=== PATIENT | male | born 2000 | race Caucasian/White ===

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

== ENCOUNTER 2018-01-10 15:47 | Inpatient (IN) ==
[2018-01-10 16:22] LABS: Basophils # 0.1 K/mm3 (0-0.2); Basophils % 0.9 % (0.1-2.0); Eosinophils # 0.2 K/mm3 (0.0-0.4); Eosinophils % 1.3 % (0.1-12.0); Lymphocytes # 4.9 K/mm3 (0.7-4.5); Lymphocytes % 31.2 % (10-50); Mean Corpuscular HGB Conc 31.8 g/dL (31.8-35.4); Mean Corpuscular Hemoglobin 29.8 pg (27.0-31.2); Mean Corpuscular Volume 93.9 fl (80-94); Mean Platelet Volume 9.6 fl (7.4-10.4); Monocytes # 0.6 K/mm3 (0.1-1.0); Neutrophils # 9.8 K/mm3 (1.8-7.8); Neutrophils % 62.6 % (37.0-80.0); Platelet Count 327 K/mm3 (142-424); Red Blood Count 6.07 M/mm3 (4.60-6.20); Red Cell Distribution Width 13.2 % (11.5-17.5); White Blood Count 15.6 K/mm3 (4.5-13.0)
[2018-01-10 16:25] LABS: Alanine Aminotransferase 22 U/L (12-78); Albumin Level 4.4 gm/dL (3.4-5.0); Albumin/Globulin Ratio 1.1 (1.1-1.8); Alkaline Phosphatase 152 U/L (46-116); Anion Gap 34.5 mEq/L (5-15); Aspartate Amino Transferase 12 U/L (15-37); Bilirubin,Total 1.4 mg/dL (0.2-1.0); Blood Urea Nitrogen 16 mg/dL (7-18); Calcium 9.2 mg/dL (8.5-10.1); Carbon Dioxide 11 mmol/L (21.0-32.0); Chloride 95 mmol/L (98-107); Globulin 3.9 gm/dl (1.3-3.2); Phosphorous 5.5 mg/dL (2.4-4.9); Potassium 4.5 mmoL/L (3.5-5.1); Sodium 136 mmol/L (136-145); Total Protein,Serum 8.3 gm/dL (6.4-8.2)
[2018-01-10 16:31] LABS: Hemoglobin 18.3 g/dL (14.1-18.0)
[2018-01-10 16:33] LABS: Glucose 471 mg/dL (74-106)
[2018-01-10 16:34] LABS: Acetone, Serum (Rapid) Small (None Detect)
--- NOTE | 2018-01-10 16:45 | Emergency Department Note ---
ED Disposition Clinical Impression: DKA (diabetic ketoacidoses) Qualifiers: Diabetes mellitus type: type 1 Diabetes mellitus complication detail: without coma Qualified Code(s): E10.10 - Type 1 diabetes mellitus with ketoacidosis without coma Disposition: Still a Patient Condition on Discharge: Serious Referrals: Iam Ibarra MD [Primary Care Provider] - - Critical Care Critical Care Time: Yes Attestation: On 01/10/18, the high probability of a clinically significant, sudden or life threatening deterioration of the following system(s) required my full and direct attention, intervention and personal management. The time I documented below is in addition to time spent performing reported procedures but includes the following listed in this critical care notation. Total Critical Care Time: 40 Vital system(s) involved:: Metabolic Failure My critical care processes included: Assessment & monitoring of V/S, Initial and Re-exams, Data Review/Interpretation, Coordinating Care, Medication Orders and management, Documentation Medical Decision Making - Dez Inquiry Pt receiving controlled substance: No Vital Signs: 01/10/18 16:02 Temperature 98 F Temperature Source Oral Pulse Rate [Left Radial] 115 H Respiratory Rate 24 Blood Pressure [Right Arm] 115/93 H Blood Pressure Mean [Right Arm] 100 Blood Pressure Source [Right Arm] Automatic Cuff Blood Pressure Position [Right Arm] Sitting 02 Sat by Pulse Oximetry 97 Oxygen Delivery Method Room Air - Lab Data Lab Results 01/10/18 15:56: POC Glucose 400 H* 01/10/18 15:59: VBG pH 7.07 L 01/10/18 16:00: WBC 15.6 H, RBC 6.07, Hgb 18.3 H*, Hct 57.0 H, MCV 93.9, MCH 29.8, MCHC 31.8, RDW 13.2, Plt Count 327, MPV 9.6, Neut % (Auto) 62.6, Lymph % (Auto) 31.2, [place] % (Auto) 4.0, Eos % (Auto) 1.3, Baso % (Auto) 0.9, Neut # (Auto) 9.8 H, Lymph # (Auto) 4.9 H, [place] # (Auto) 0.6, Eos # (Auto) 0.2, Baso # (Auto) 0.1 01/10/18 16:00: Sodium 136, Potassium 4.5, Chloride 95 L, Carbon Dioxide 11 L, Anion Gap 34.5 H, BUN 16, Creatinine 1.35 H, Estimated Creat Clear 82, Estimated GFR 68, Est GFR ( Amer) 82, Glucose 471 H*, Calcium 9.2, Phosphorus 5.5 H , Magnesium 2.0, Total Bilirubin 1.4 H, AST 12 L, ALT 22, Alkaline Phosphatase 152 H, Total Protein 8.3 H, Albumin 4.4, Globulin 3.9 H, Albumin/Globulin Ratio 1.1, Acetone Level Small Result diagrams: 01/10/18 16:00 01/10/18 16:00 Orders (Tests/Meds): ED MEDICATIONS Generic Name Dose Route Start Last Admin Trade Name Freq PRN Reason Stop Dose Admin Insulin Human Regular 100 unit 101 mls @ 6.64 mls/hr 01/10/18 17:00 / Sodium Chloride IV 02/09/18 16:59 .[id number] JOE Protocol 0.1 UNITS/KG/HR Discontinued Medications Generic Name Dose Route Start Last Admin Trade Name Freq PRN Reason Stop Dose Admin Ondansetron HCl 4 mg 01/10/18 16:06 01/10/18 16:10 Zofran 4mg/2ml Vial IV 01/10/18 16:07 4 mg ONCE ONE Administration Sodium Chloride 1,000 ml 01/10/18 16:00 01/10/18 16:10 Sod Chlor 0.9% 1000ml Bag IV 01/10/18 16:01 1,000 ml BOLUS ONE Administration ORDERS Category Date Time Status Complete Blood Count Auto Diff Stat Lab 01/10/18 16:00 Results Urinalysis and Microscopic Stat Lab 01/10/18 15:59 Ordered VBG PH Stat Lab 01/10/18 15:59 Ordered - Physician Consults Physician Consulted: Odell Ibarra Time: 17:01 Reason -: Admission Comment/Response: Agrees to admit the patient to the hospital. We discussed the patient's clinical information, including history, exam, laboratory and radiology results and ED course. Per hospital procedure, I will write temporary bridge inpatient orders on the patient. Specific orders requested by the admitting physician: DKA protocol General Adult HPI - General Chief complaint: Nausea/Vomiting/Diarrhea Stated complaint: DKA Time Seen by Provider: 01/10/18 16:30 Mode of Arrival: Ambulatory Limitations: No Limitations Description of Symptoms (Recalled from ER Triage Doc. 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 pt with hx of IDDM pt smells of ketones. - History of Present Illness HPI narrative: The patient is a type I diabetic with recurrent diabetic ketoacidosis. He has an insulin pump. Presents to the emergency room stating that he is in DKA again. He states symptoms just started today. States he felt fine yesterday. He complains of nausea, vomiting, generalized discomfort. States that his blood sugar normally runs from 150-240. He says that his insulin pump seems to be melting today, stating that there is "a blockage in the wire". - Related Data Home Medications Medication Instructions Recorded Confirmed Insulin Lispro [Humalog] 2.5 unit SQ DIRECTED 10/23/17 01/10/18 insulin lispro (U- 100) 100 2.5 unit SQ .hourly ml 12/27/17 01/10/18 unit/mL subcutaneous cartridge Allergies Allergy/AdvReac Type Severity Reaction Status Date / Time No Known Allergies Allergy Verified 12/27/17 10:51 [facility] History I have reviewed the patient's past medical history: Yes Medical History: Reports:: Diabetes Mellitus Type 1 Denies:: Cancer, Diabetes Mellitus Type 2, Internal Pacemaker, MRSA Laterality Cases: Bilateral: Tonsillectomy Other Surgeries: Yes: No Previous Surgery, Other. No: Pacemaker Amputation: No Fractures: Yes (right ankle) - Social History Smoking Status: Current every day smoker Tobacco Type: cigarettes # Packs/Day (cigarettes): 1 #Yrs smoked (if former smoker): 1 Alcohol Intake: never Alcohol Intake Frequency:: a few times a month Substance Use Type: denies use Occupational Status: unemployed Housing: house Household Members: family - Psychiatric History Expresses thoughts of harming self/others: None Suicide Plan Description: No Plan Family Hx:: Cancer, Diabetes, Heart Attack, Hyperlipidemia, Hypertension, Stroke, Tuberculosis ROS Obtained: Yes All systems reviewed & no additional complaints - Constitutional Constitutional: Denies fever(s) - Gastrointestinal Gastrointestingal: Reports: abdominal pain, nausea, vomiting - Musculoskeletal Musculoskeletal: Reports muscle aches Physical Exam - General General appearance: alert Comment: Mildly confused. Ketones on breath. - Head Head exam: atraumatic, normocephalic - Eye Eye exam: Present: PERRL, EOMI - ENT ENT exam: Present: mucous membranes dry - Neck Neck exam: Present: normal inspection, full ROM. Absent: meningismus - Chest Chest inspection: Present: normal inspection, symmetric chest wall rise - Respiratory Respiratory exam: Present: normal lung sounds bilaterally - Cardiovascular Cardiovascular exam: Present: normal rhythm, tachycardia, normal heart sounds - Abdominal Exam Abdominal exam: Present: soft, tenderness. Absent: distention Abdominal tenderness: Present: diffuse - Neurological Exam Neurological exam: Present: alert, CN II-XII intact. Absent: motor sensory deficit - Psychiatric Psychiatric exam: Present: anxious - Skin Skin exam: Present: warm, dry
[2018-01-10 17:11] LABS: Lymphocytes % 31 % (10-50); Monocytes % 5 % (2-9); Neutrophils % 64 % (42-76); Total Cells Counted 100
[2018-01-10 17:12] LABS: RBC Morphology Normal
[2018-01-10 17:28] LABS: Microscopic, Urine URINE MICROSCOPIC (MICROSCOPIC)
[2018-01-10 17:30] LABS: Appearance,Urine CLEAR (Clear); Bilirubin,Urine Negative (Negative); Blood, Urine Negative (Negative); Color,Urine YELLOW (Yellow); Glucose,Urine (UA) 3+ (Negative); Ketones,Urine 3+ (Negative); Leukocyte Esterase,Urine Negative (Negative); PH,Urine 5.5 (5.0-8.5); Protein,Urine TRACE (Negative); Specific Gravity, Urine >= 1.030 (1.005-1.030); Urobilinogen,Urine 0.2 EU/dl (0.2)
[2018-01-10 17:37] LABS: Bacteria,Urine Trace /lpf; Squamous Epithelial Cell,Urine Occasional #/hpf (0-5)
[2018-01-10 21:11] LABS: Anion Gap 27.9 mEq/L (5-15); Potassium 4.9 mmoL/L (3.5-5.1)
[2018-01-10 22:37] LABS: Calcium 7.8 mg/dL (8.5-10.1)
[2018-01-11 01:07] LABS: Anion Gap 24.2 mEq/L (5-15); Calcium 7.8 mg/dL (8.5-10.1); Potassium 4.2 mmoL/L (3.5-5.1)
[2018-01-11 04:53] LABS: Calcium 7.8 mg/dL (8.5-10.1)
--- NOTE | 2018-01-11 08:08 | Pharmacy Consult Notes ---
[facility] Pharmacy VTE Monitoring - Patient Demographics Admission date: 01/10/18 Report Date: 01/11/18 Time: 08:08 Allergies/Adverse Reactions: Patient Allergies No Known Allergies Allergy (Verified 12/27/17 10:51) Height: 1.73 m Weight: 59.988 kg Patient Problems: Current Active Problems DKA (diabetic ketoacidoses) (Acute) - VTE Risk Labs: VTE Related Lab Results Hgb 18.3 g/dL (14.1-18.0) H* 01/10/18 16:00 Hct 57.0 % (42.0-52.0) H 01/10/18 16:00 Plt Count 327 K/mm3 (142-424) 01/10/18 16:00 BUN 8 mg/dL (7-18) 01/11/18 04:30 Creatinine 0.94 mg/dL (0.70-1.30) 01/11/18 04:30 Estimated Creat Clear 105 mL/min (50-200) 01/11/18 04:30 VTE Score: 0 VTE Risk Level: Very Low Risk Clinical Trial Participant: No - Prophylaxis VTE Prophylaxis Ordered?: Yes Types of VTE Prophylaxis: TEDS Knee High
[2018-01-11 08:57] LABS: Anion Gap 23.7 mEq/L (5-15); Calcium 8.1 mg/dL (8.5-10.1); Potassium 3.7 mmoL/L (3.5-5.1)
[2018-01-11 10:24] VITALS: BP 123/73
--- NOTE | 2018-01-11 12:00 | H&P/Discharge Summary ---
General - General Admission date:: 01/10/18 Discharge date: 01/11/18 *Admission Date: 01/10/18 *Chief complaint: dka *History of present illness: 17 yr old male patient is a type I diabetic with recurrent diabetic ket oacidosis. He has an insulin pump. Presented to the emergency room stating that he is in DKA again. pt states he woke up having symptoms and it was to late to do anything. States he felt fine yesterday. He complains of nausea, vomiting, generalized discomfort. States that his blood sugar normally runs from 150-240. Pt states that there is "a blockage in the wire". [facility] History I have reviewed the patient's past medical history: Yes Medical History: Reports:: Diabetes Mellitus Type 1 Denies:: Cancer, Diabetes Mellitus Type 2, Internal Pacemaker, MRSA Laterality Cases: Bilateral: Tonsillectomy Other Surgeries: Yes: No Previous Surgery, Other. No: Pacemaker Amputation: No Fractures: Yes (right ankle) - *Social History Educational Level: Completed High School Smoking Status: Current every day smoker Tobacco Type: cigarettes # Packs/Day (cigarettes): 1 #Yrs smoked (if former smoker): 7 Alcohol Intake: never Alcohol Intake Frequency:: a few times a month Substance Use Type: denies use Occupational Status: unemployed Housing: house Household Members: significant other, family - Psychiatric History Expresses thoughts of harming self/others: None Suicide Plan Description: No Plan *Family Hx:: Cancer, Diabetes, Heart Attack, Hyperlipidemia, Hypertension, Stroke, Tuberculosis Review of Systems - Review of Systems Review of systems:: pertinent systems reviewed and negative unless documented below - Constitutional Reports malaise, Denies body ache(s), Denies fever(s) - Eyes Denies change in vision - ENT Denies change in voice - *Cardiovascular Denies chest pain at rest, Denies chest pain with activity, Denies shortness of breath, Denies foot swelling - *Respiratory Denies shortness of breath, Denies shortness of breath with activity - *Gastrointestinal Reports cramping, Reports nausea, Reports vomiting, Denies change in bowel habits, Denies loose stools - *Genitourinary Denies painful urination - *Musculoskeletal Denies decreased muscle mass - Integumentary/Breasts Denies change in hair, Denies redness - *Neurologic Denies abnormal movements, Denies localized weakness, Denies tingling - Psychiatric Denies anxiety, Denies mood swings - Endocrine Denies flushing - Hematologic/Lymphatic Denies enlarged lymph nodes Exam Vital signs and Labs for Last 24 Hours: Temp Pulse Resp BP Pulse Ox 98.3 F 93 H 20 123/73 97 01/11/18 08:00 01/11/18 10:00 01/11/18 10:00 01/11/18 10:00 01/11/18 10:00 Laboratory Results - last 24 hr 01/10/18 15:56: POC Glucose 400 H* 01/10/18 15:59: VBG pH 7.07 L 01/10/18 16:00: WBC 15.6 H, RBC 6.07, Hgb 18.3 H*, Hct 57.0 H, MCV 93.9, MCH 29.8, MCHC 31.8, RDW 13.2, Plt Count 327, MPV 9.6, Neut % (Auto) 62.6, Lymph % (Auto) 31.2, [place] % (Auto) 4.0, Eos % (Auto) 1.3, Baso % (Auto) 0.9, Neut # (Auto) 9.8 H, Lymph # (Auto) 4.9 H, [place] # (Auto) 0.6, Eos # (Auto) 0.2, Baso # (Auto) 0.1, Total Counted 100, Neutrophils % (Manual) 64, Lymphocytes % (Manual) 31, Monocytes % (Manual) 5, Platelet Estimate Normal, RBC Morphology Normal 01/10/18 16:00: Sodium 136, Potassium 4.5, Chloride 95 L, Carbon Dioxide 11 L, Anion Gap 34.5 H, BUN 16, Creatinine 1.35 H, Estimated Creat Clear 82, Estimated GFR 68, Est GFR ( Amer) 82, Glucose 471 H*, Calcium 9.2, Phosphorus 5.5 H , Magnesium 2.0, Total Bilirubin 1.4 H, AST 12 L, ALT 22, Alkaline Phosphatase 152 H, Total Protein 8.3 H, Albumin 4.4, Globulin 3.9 H, Albumin/Globulin Ratio 1.1, Acetone Level Small 01/10/18 17:20: Urine Color Yellow, Urine Appearance Clear, Urine pH 5.5, Ur Specific [place] >= 1.030, Urine Protein Trace, Urine Glucose (UA) 3+, Urine Ketones 3+, Urine Blood Negative, Urine Nitrate Negative, Urine Bilirubin Negative, Urine Urobilinogen 0.2, Ur Leukocyte Esterase Negative, Urine RBC None, Urine WBC None, Ur Squamous Epith Cells Occasional, Urine Bacteria Trace 01/10/18 17:43: POC Glucose 390 H* 01/10/18 18:27: POC Glucose 381 H* 01/10/18 20:04: POC Glucose 233 H 01/10/18 20:40: Sodium 138, Potassium 4.9, Chloride 105, Carbon Dioxide 10 L, Anion Gap 27.9 H, BUN 12, Creatinine 1.04 D, Estimated Creat Clear 95, Estimated GFR 92, Est GFR ( Amer) 111 D, Glucose 209 H D, Calcium 7.8 L D, Acetone Level Cancelled 01/10/18 21:49: POC Glucose 167 H 01/10/18 22:54: POC Glucose 151 H 01/11/18 00:20: POC Glucose 139 H 01/11/18 00:45: Sodium 135 L, Potassium 4.2, Chloride 103, Carbon Dioxide 12 L, Anion Gap 24.2 H, BUN 9, Creatinine 1.00, Estimated Creat Clear 99, Estimated GFR 96, Est GFR ( Amer) 116, Glucose 141 H D, Calcium 7.8 L 01/11/18 01:32: POC Glucose 147 H 01/11/18 03:36: POC Glucose 138 H 01/11/18 04:30: Acetone Level Small 01/11/18 04:30: Sodium 137, Potassium 4.0, Chloride 104, Carbon Dioxide 14 L, Anion Gap 23.0 H, BUN 8, Creatinine 0.94, Estimated Creat Clear 105, Estimated GFR 103, Est GFR ( Amer) 125, Glucose 136 H, Calcium 7.8 L 01/11/18 04:34: POC Glucose 128 H 01/11/18 06:09: POC Glucose 135 H 01/11/18 07:53: POC Glucose 150 H 01/11/18 08:33: Sodium 135 L, Potassium 3.7, Chloride 102, Carbon Dioxide 13 L, Anion Gap 23.7 H, BUN 7, Creatinine 0.99, Estimated Creat Clear 102, Estimated GFR 97, Est GFR ( Amer) 118, Glucose 188 H D, Calcium 8.1 L 01/11/18 08:33: Acetone Level Small 01/11/18 09:53: POC Glucose 287 H I & O for Last 24 hours: Intake & Output 01/08/18 01/09/18 01/10/18 01/11/18 11:59 11:59 11:59 11:59 Intake Total 2208 / 2208 Output Total 1800 / 1800 Balance 408 / 408 Weight 132 lb 4 oz - *Routine HEENT Exam Head: Present: normocephalic Eye: Present: EOMI, PERRL ENT: Present: mucous membranes moist - *Routine Neck Exam Present: supple. Absent: lymphadenopathy - *Routine Respiratory Exam Present: CTA bilaterally - *Routine Cardiovascular Exam Present: RRR - *Routine Abdominal Exam Present: soft, normoactive bowel sounds. Absent: tenderness - *Routine Extremities Exam Absent: cyanosis, clubbing, edema - *Routine Skin Exam Present: warm. Absent: rash - *Routine Neurological Exam Present: alert, oriented X3 Hospital Course Hospital Course: insulin drip, monitoring of vital signs and labs this am still has acetone pt signed out ama Results Labs on day of discharge: Labs from last 24 hours 01/11/18 01/11/18 01/11/18 09:53 08:33 08:33 WBC RBC Hgb Hct MCV MCH MCHC RDW Plt Count MPV Neut % (Auto) Lymph % (Auto) [place] % (Auto) Eos % (Auto) Baso % (Auto) Neut # (Auto) Lymph # (Auto) [place] # (Auto) Eos # (Auto) Baso # (Auto) Total Counted Neutrophils % (Manual) Lymphocytes % (Manual) Monocytes % (Manual) Platelet Estimate RBC Morphology VBG pH Sodium 135 L Potassium 3.7 Chloride 102 Carbon Dioxide 13 L Anion Gap 23.7 H BUN 7 Creatinine 0.99 Estimated Creat Clear 102 Estimated GFR 97 Est GFR ( Amer) 118 Glucose 188 H D POC Glucose 287 H Calcium 8.1 L Phosphorus Magnesium Total Bilirubin AST ALT Alkaline Phosphatase Total Protein Albumin Globulin Albumin/Globulin Ratio Urine Color Urine Appearance Urine pH Ur Specific [place] Urine Protein Urine Glucose (UA) Urine Ketones Urine Blood Urine Nitrate Urine Bilirubin Urine Urobilinogen Ur Leukocyte Esterase Urine RBC Urine WBC Ur Squamous Epith Cells Urine Bacteria Acetone Level Small 01/11/18 01/11/18 01/11/18 07:53 06:09 04:34 WBC RBC Hgb Hct MCV MCH MCHC RDW Plt Count MPV Neut % (Auto) Lymph % (Auto) [place] % (Auto) Eos % (Auto) Baso % (Auto) Neut # (Auto) Lymph # (Auto) [place] # (Auto) Eos # (Auto) Baso # (Auto) Total Counted Neutrophils % (Manual) Lymphocytes % (Manual) Monocytes % (Manual) Platelet Estimate RBC Morphology VBG pH Sodium Potassium Chloride Carbon Dioxide Anion Gap BUN Creatinine Estimated Creat Clear Estimated GFR Est GFR ( Amer) Glucose POC Glucose 150 H 135 H 128 H Calcium Phosphorus Magnesium Total Bilirubin AST ALT Alkaline Phosphatase Total Protein Albumin Globulin Albumin/Globulin Ratio Urine Color Urine Appearance Urine pH Ur Specific [place] Urine Protein Urine Glucose (UA) Urine Ketones Urine Blood Urine Nitrate Urine Bilirubin Urine Urobilinogen Ur Leukocyte Esterase Urine RBC Urine WBC Ur Squamous Epith Cells Urine Bacteria Acetone Level 01/11/18 01/11/18 01/11/18 04:30 04:30 03:36 WBC RBC Hgb Hct MCV MCH MCHC RDW Plt Count MPV Neut % (Auto) Lymph % (Auto) [place] % (Auto) Eos % (Auto) Baso % (Auto) Neut # (Auto) Lymph # (Auto) [place] # (Auto) Eos # (Auto) Baso # (Auto) Total Counted Neutrophils % (Manual) Lymphocytes % (Manual) Monocytes % (Manual) Platelet Estimate RBC Morphology VBG pH Sodium 137 Potassium 4.0 Chloride 104 Carbon Dioxide 14 L Anion Gap 23.0 H BUN 8 Creatinine 0.94 Estimated Creat Clear 105 Estimated GFR 103 Est GFR ( Amer) 125 Glucose 136 H POC Glucose 138 H Calcium 7.8 L Phosphorus Magnesium Total Bilirubin AST ALT Alkaline Phosphatase Total Protein Albumin Globulin Albumin/Globulin Ratio Urine Color Urine Appearance Urine pH Ur Specific [place] Urine Protein Urine Glucose (UA) Urine Ketones Urine Blood Urine Nitrate Urine Bilirubin Urine Urobilinogen Ur Leukocyte Esterase Urine RBC Urine WBC Ur Squamous Epith Cells Urine Bacteria Acetone Level Small 01/11/18 01/11/18 01/11/18 01:32 00:45 00:20 WBC RBC Hgb Hct MCV MCH MCHC RDW Plt Count MPV Neut % (Auto) Lymph % (Auto) [place] % (Auto) Eos % (Auto) Baso % (Auto) Neut # (Auto) Lymph # (Auto) [place] # (Auto) Eos # (Auto) Baso # (Auto) Total Counted Neutrophils % (Manual) Lymphocytes % (Manual) Monocytes % (Manual) Platelet Estimate RBC Morphology VBG pH Sodium 135 L Potassium 4.2 Chloride 103 Carbon Dioxide 12 L Anion Gap 24.2 H BUN 9 Creatinine 1.00 Estimated Creat Clear 99 Estimated GFR 96 Est GFR ( Amer) 116 Glucose 141 H D POC Glucose 147 H 139 H Calcium 7.8 L Phosphorus Magnesium Total Bilirubin AST ALT Alkaline Phosphatase Total Protein Albumin Globulin Albumin/Globulin Ratio Urine Color Urine Appearance Urine pH Ur Specific [place] Urine Protein Urine Glucose (UA) Urine Ketones Urine Blood Urine Nitrate Urine Bilirubin Urine Urobilinogen Ur Leukocyte Esterase Urine RBC Urine WBC Ur Squamous Epith Cells Urine Bacteria Acetone Level 01/10/18 01/10/18 01/10/18 22:54 21:49 20:40 WBC RBC Hgb Hct MCV MCH MCHC RDW Plt Count MPV Neut % (Auto) Lymph % (Auto) [place] % (Auto) Eos % (Auto) Baso % (Auto) Neut # (Auto) Lymph # (Auto) [place] # (Auto) Eos # (Auto) Baso # (Auto) Total Counted Neutrophils % (Manual) Lymphocytes % (Manual) Monocytes % (Manual) Platelet Estimate RBC Morphology VBG pH Sodium 138 Potassium 4.9 Chloride 105 Carbon Dioxide 10 L Anion Gap 27.9 H BUN 12 Creatinine 1.04 D Estimated Creat Clear 95 Estimated GFR 92 Est GFR ( Amer) 111 D Glucose 209 H D POC Glucose 151 H 167 H Calcium 7.8 L D Phosphorus Magnesium Total Bilirubin AST ALT Alkaline Phosphatase Total Protein Albumin Globulin Albumin/Globulin Ratio Urine Color Urine Appearance Urine pH Ur Specific [place] Urine Protein Urine Glucose (UA) Urine Ketones Urine Blood Urine Nitrate Urine Bilirubin Urine Urobilinogen Ur Leukocyte Esterase Urine RBC Urine WBC Ur Squamous Epith Cells Urine Bacteria Acetone Level Cancelled 01/10/18 01/10/18 01/10/18 20:04 18:27 17:43 WBC RBC Hgb Hct MCV MCH MCHC RDW Plt Count MPV Neut % (Auto) Lymph % (Auto) [place] % (Auto) Eos % (Auto) Baso % (Auto) Neut # (Auto) Lymph # (Auto) [place] # (Auto) Eos # (Auto) Baso # (Auto) Total Counted Neutrophils % (Manual) Lymphocytes % (Manual) Monocytes % (Manual) Platelet Estimate RBC Morphology VBG pH Sodium Potassium Chloride Carbon Dioxide Anion Gap BUN Creatinine Estimated Creat Clear Estimated GFR Est GFR ( Amer) Glucose POC Glucose 233 H 381 H* 390 H* Calcium Phosphorus Magnesium Total Bilirubin AST ALT Alkaline Phosphatase Total Protein Albumin Globulin Albumin/Globulin Ratio Urine Color Urine Appearance Urine pH Ur Specific [place] Urine Protein Urine Glucose (UA) Urine Ketones Urine Blood Urine Nitrate Urine Bilirubin Urine Urobilinogen Ur Leukocyte Esterase Urine RBC Urine WBC Ur Squamous Epith Cells Urine Bacteria Acetone Level 01/10/18 01/10/18 01/10/18 17:20 16:00 16:00 WBC 15.6 H RBC 6.07 Hgb 18.3 H* Hct 57.0 H MCV 93.9 MCH 29.8 MCHC 31.8 RDW 13.2 Plt Count 327 MPV 9.6 Neut % (Auto) 62.6 Lymph % (Auto) 31.2 [place] % (Auto) 4.0 Eos % (Auto) 1.3 Baso % (Auto) 0.9 Neut # (Auto) 9.8 H Lymph # (Auto) 4.9 H [place] # (Auto) 0.6 Eos # (Auto) 0.2 Baso # (Auto) 0.1 Total Counted 100 Neutrophils % (Manual) 64 Lymphocytes % (Manual) 31 Monocytes % (Manual) 5 Platelet Estimate Normal RBC Morphology Normal VBG pH Sodium 136 Potassium 4.5 Chloride 95 L Carbon Dioxide 11 L Anion Gap 34.5 H BUN 16 Creatinine 1.35 H Estimated Creat Clear 82 Estimated GFR 68 Est GFR ( Amer) 82 Glucose 471 H* POC Glucose Calcium 9.2 Phosphorus 5.5 H Magnesium 2.0 Total Bilirubin 1.4 H AST 12 L ALT 22 Alkaline Phosphatase 152 H Total Protein 8.3 H Albumin 4.4 Globulin 3.9 H Albumin/Globulin Ratio 1.1 Urine Color Yellow Urine Appearance Clear Urine pH 5.5 Ur Specific [place] >= 1.030 Urine Protein Trace Urine Glucose (UA) 3+ Urine Ketones 3+ Urine Blood Negative Urine Nitrate Negative Urine Bilirubin Negative Urine Urobilinogen 0.2 Ur Leukocyte Esterase Negative Urine RBC None Urine WBC None Ur Squamous Epith Cells Occasional Urine Bacteria Trace Acetone Level Small 01/10/18 01/10/18 15:59 15:56 WBC RBC Hgb Hct MCV MCH MCHC RDW Plt Count MPV Neut % (Auto) Lymph % (Auto) [place] % (Auto) Eos % (Auto) Baso % (Auto) Neut # (Auto) Lymph # (Auto) [place] # (Auto) Eos # (Auto) Baso # (Auto) Total Counted Neutrophils % (Manual) Lymphocytes % (Manual) Monocytes % (Manual) Platelet Estimate RBC Morphology VBG pH 7.07 L Sodium Potassium Chloride Carbon Dioxide Anion Gap BUN Creatinine Estimated Creat Clear Estimated GFR Est GFR ( Amer) Glucose POC Glucose 400 H* Calcium Phosphorus Magnesium Total Bilirubin AST ALT Alkaline Phosphatase Total Protein Albumin Globulin Albumin/Globulin Ratio Urine Color Urine Appearance Urine pH Ur Specific [place] Urine Protein Urine Glucose (UA) Urine Ketones Urine Blood Urine Nitrate Urine Bilirubin Urine Urobilinogen Ur Leukocyte Esterase Urine RBC Urine WBC Ur Squamous Epith Cells Urine Bacteria Acetone Level - Additional Comments rounded with dr hollingsworth all orders per darrick Discharge Medications - Medications for Discharge Home Medication List at Discharge: No Action insulin lispro (U- 100) 100 unit/mL subcutaneous cartridge 2.5 unit SQ .hourly ml Insulin Lispro [Humalog] 2.5 unit SQ DIRECTED Disposition Disposition: Left Against Medical Advice
== END 2018-01-11 10:21 | disposition left against medical advice (07) ==
LOC: ER 15:47 → 2ND 17:29
PROVIDERS: ADMIT Internal Medicine Adolescent Medicine; ATTEND Emergency Medicine

== ENCOUNTER 2018-02-07 12:20 | Observation (INO) ==
--- NOTE | 2018-02-07 12:29 | Emergency Department Note ---
ED Disposition Clinical Impression: Diabetic ketoacidosis Qualifiers: Diabetes mellitus type: type 1 Diabetes mellitus complication detail: without coma Qualified Code(s): E10.10 - Type 1 diabetes mellitus with ketoacidosis without coma Disposition: Still a Patient Condition on Discharge: Fair Referrals: Iam Ibarra MD [Primary Care Provider] - - Critical Care Critical Care Time: Yes Attestation: On , the high probability of a clinically significant, sudden or life threatening deterioration of the following system(s) required my full and direct attention, intervention and personal management. The time I documented below is in addition to time spent performing reported procedures but includes the following listed in this critical care notation. Total Critical Care Time: 30 Vital system(s) involved:: Metabolic Failure My critical care processes included: Assessment & monitoring of V/S, Initial and Re-exams, Data Review/Interpretation, Coordinating Care, Medication Orders and management, Documentation Medical Decision Making - Dez Inquiry Pt receiving controlled substance: No Vital Signs: 02/07/18 12:30 02/07/18 13:13 Temperature 97.6 F Temperature Source Oral Pulse Rate [Left Radial] 107 H 106 H Respiratory Rate 20 Blood Pressure [Right Arm] 140/92 H 132/74 Blood Pressure Mean [Right Arm] 108 93 Blood Pressure Source [Right Arm] Automatic Cuff Automatic Cuff Blood Pressure Position [Right Arm] Sitting Sitting 02 Sat by Pulse Oximetry 98 98 Oxygen Delivery Method Room Air - Lab Data Lab Results 02/07/18 12:27: POC Glucose 535 H* 02/07/18 12:46: Urine Color Yellow, Urine Appearance Clear, Urine pH 5.5, Ur Specific [place] 1.025, Urine Protein Negative, Urine Glucose (UA) 3+, Urine Ketones 3+, Urine Blood Negative, Urine Nitrate Negative, Urine Bilirubin Negative, Urine Urobilinogen 0.2, Ur Leukocyte Esterase Negative, Urine RBC None, Urine WBC None, Ur Squamous Epith Cells Occasional, Urine Bacteria Trace 02/07/18 12:46: Sodium 132 L, Potassium 4.5, Chloride 91 L, Carbon Dioxide 12 L, Anion Gap 33.5 H, BUN 18, Creatinine 1.12, Estimated Creat Clear 99, Estimated GFR 84, Est GFR ( Amer) 102, Glucose 558 H*, Calcium 9.5, Phosphorus 4.6, Magnesium 2.0, Total Bilirubin 1.4 H, AST 18, ALT 29, Alkaline Phosphatase 149 H , Total Protein 8.4 H, Albumin 4.5, Globulin 3.9 H, Albumin/Globulin Ratio 1.2, Lipase 163, Acetone Level Moderate Result diagrams: 02/07/18 12:46 Orders (Tests/Meds): ED MEDICATIONS Generic Name Dose Route Start Last Admin Trade Name Freq PRN Reason Stop Dose Admin Insulin Human Regular 100 unit 101 mls @ 6.64 mls/hr 02/07/18 13:30 / Sodium Chloride IV 03/09/18 13:29 .[id number] JOE Protocol 0.1 UNITS/KG/HR Sodium Chloride 10 ml 02/07/18 12:37 Saline Flush 10ml Syringe IV 03/09/18 12:36 NEEDED PRN Maintain IV Site Discontinued Medications Generic Name Dose Route Start Last Admin Trade Name Freq PRN Reason Stop Dose Admin Ondansetron HCl 4 mg 02/07/18 12:37 02/07/18 13:00 Zofran 4mg/2ml Vial IV 02/07/18 12:38 4 mg ONCE ONE Administration Sodium Chloride 1,000 ml 02/07/18 12:37 02/07/18 13:00 Sod Chlor 0.9% 1000ml Bag IV 02/07/18 12:38 1,000 ml BOLUS ONE Administration ORDERS Category Date Time Status Urinalysis and Microscopic Stat Lab 02/07/18 12:46 Ordered Venous Blood Gas Routine RT 02/07/18 13:20 Received Venous Blood Gas Stat RT 02/07/18 12:37 Ordered - Physician Consults Physician Consulted: Gen Ibarra Time: 13:40 Reason -: Admission Comment/Response: Agrees to admit the patient to the hospital. We discussed the patient's clinical information, including history, exam, laboratory and radiology results and ED course. Per hospital procedure, I will write temporary bridge inpatient orders on the patient. Specific orders requested by the admitt ing physician: DKA protocol normal saline 200 cc/h after first liter bolus General Adult HPI - General Stated complaint: possible DKA Time Seen by Provider: 02/07/18 12:29 - History of Present Illness HPI narrative: The patient is known to me from previous visits for diabetic ketoacidosis, which she has had recently about every month. States symptoms started a couple of hours ago. He hurts all over he has abdominal pain, one episode of vomiting. Denies fever or diarrhea. Denies URI symptoms. He has an insulin pump. He says that today it gave him a message that said there was a blockage in the line, but he did not change the unit because he says it was too late, symptoms of DKA had already started. His basal rate is 2.5 units/h. He gives himself 1 unit of insulin for every 7 carbs. His last bolus was about 4-5 PM yesterday, the last time he ate. [employer] Dispatcher is Dr. Todd Gonzales. - Related Data Home Medications Medication Instructions Recorded Confirmed Insulin Lispro [Humalog] 2.5 unit SQ DIRECTED 10/23/17 02/07/18 insulin lispro (U- 100) 100 2.5 unit SQ .hourly ml 12/27/17 02/07/18 unit/mL subcutaneous cartridge Allergies Allergy/AdvReac Type Severity Reaction Status Date / Time No Known Allergies Allergy Verified 12/27/17 10:51 [facility] History - Hepatitis A Screen Attestation statement:: This patient has been screened for Hepatitis A risk factors. I have reviewed the patient's past medical history: Yes Medical History: Reports:: Diabetes Mellitus Type 1 Denies:: Cancer, Diabetes Mellitus Type 2, Internal Pacemaker, MRSA Laterality Cases: Bilateral: Tonsillectomy Other Surgeries: Yes: No Previous Surgery, Other. No: Pacemaker Amputation: No Fractures: Yes (right ankle) - Social History Smoking Status: Current every day smoker Tobacco Type: cigarettes # Packs/Day (cigarettes): 1 #Yrs smoked (if former smoker): 7 Alcohol Intake: never Alcohol Intake Frequency:: a few times a month Substance Use Type: denies use Occupational Status: unemployed Housing: house Household Members: significant other, family Family Hx:: Cancer, Diabetes, Heart Attack, Hyperlipidemia, Hypertension, Stroke, Tuberculosis ROS Obtained: Yes All systems reviewed & no additional complaints - Constitutional Constitutional: Reports body ache, Denies fever(s) - Cardiovascular Cardiovascular: Denies chest pain - Respiratory Respiratory: No dyspnea - Gastrointestinal Gastrointestingal: Reports: abdominal pain, nausea, vomiting. Denies: diarrhea Physical Exam - General General appearance: alert Comment: Looks dehydrated with dry lips and mucous membranes. Smells of ketones. - Head Head exam: atraumatic, normocephalic - Eye Eye exam: Present: normal appearance, PERRL, EOMI - ENT ENT exam: Present: mucous membranes dry - Neck Neck exam: Present: normal inspection, full ROM, trachea midline - Chest Chest inspection: Present: normal inspection, symmetric chest wall rise - Respiratory Respiratory exam: Present: normal lung sounds bilaterally, respiratory distress - Cardiovascular Cardiovascular exam: Present: normal rhythm, tachycardia, normal heart sounds - Abdominal Exam Abdominal exam: Present: soft, tenderness. Absent: distention Abdominal tenderness: Present: diffuse, mild - Extremities Exam Extremities exam: Present: normal inspection, full ROM - Neurological Exam Neurological exam: Present: alert, oriented X3. Absent: motor sensory deficit - Psychiatric Psychiatric exam: Present: normal affect - Skin Skin exam: Present: warm, dry
[2018-02-07 12:50] LABS: Microscopic, Urine URINE MICROSCOPIC (MICROSCOPIC)
[2018-02-07 12:54] LABS: Appearance,Urine CLEAR (Clear); Bilirubin,Urine Negative (Negative); Blood, Urine Negative (Negative); Color,Urine YELLOW (Yellow); Glucose,Urine (UA) 3+ (Negative); Ketones,Urine 3+ (Negative); Leukocyte Esterase,Urine Negative (Negative); PH,Urine 5.5 (5.0-8.5); Protein,Urine Negative (Negative); Specific Gravity, Urine 1.025 (1.005-1.030); Urobilinogen,Urine 0.2 EU/dl (0.2)
[2018-02-07 13:10] LABS: Alanine Aminotransferase 29 U/L (12-78); Albumin Level 4.5 gm/dL (3.4-5.0); Albumin/Globulin Ratio 1.2 (1.1-1.8); Alkaline Phosphatase 149 U/L (46-116); Anion Gap 33.5 mEq/L (5-15); Aspartate Amino Transferase 18 U/L (15-37); Bilirubin,Total 1.4 mg/dL (0.2-1.0); Blood Urea Nitrogen 18 mg/dL (7-18); Calcium 9.5 mg/dL (8.5-10.1); Carbon Dioxide 12 mmol/L (21.0-32.0); Chloride 91 mmol/L (98-107); Globulin 3.9 gm/dl (1.3-3.2); Lipase 163 u/L (73-393); Phosphorous 4.6 mg/dL (2.4-4.9); Potassium 4.5 mmoL/L (3.5-5.1); Sodium 132 mmol/L (136-145); Total Protein,Serum 8.4 gm/dL (6.4-8.2)
[2018-02-07 13:16] LABS: Acetone, Serum (Rapid) Moderate (None Detect); Glucose 558 mg/dL (74-106)
[2018-02-07 13:25] LABS: Bacteria,Urine Trace /lpf; Squamous Epithelial Cell,Urine Occasional #/hpf (0-5)
[2018-02-07 13:28] LABS: VBG Base Excess -17.2 mmol/L (-2.4-2.3); VBG Oxygen Saturation 96.1 % (50-70); VBG PCO2 29.3 mmol/L (35-51); VBG PO2 93.9 mmol/L (28-40); VBG Total CO2 11.9 mmol/L (23-27)
[2018-02-07 13:50] LABS: VBG PH 7.19 mmol/L (7.31-7.41)
[2018-02-07 15:51] LABS: Basophils # 0.1 K/mm3 (0-0.2); Basophils % 0.3 % (0.1-2.0); Eosinophils # 0.1 K/mm3 (0.0-0.4); Eosinophils % 0.5 % (0.1-12.0); Hematocrit 53.2 % (42.0-52.0); Hemoglobin 17.3 g/dL (14.1-18.0); Lymphocytes # 1.5 K/mm3 (0.7-4.5); Lymphocytes % 7.6 % (10-50); Mean Corpuscular HGB Conc 32.6 g/dL (31.8-35.4); Mean Corpuscular Hemoglobin 30.1 pg (27.0-31.2); Mean Corpuscular Volume 92.5 fl (80-94); Mean Platelet Volume 9.2 fl (7.4-10.4); Monocytes # 0.6 K/mm3 (0.1-1.0); Monocytes % 2.9 % (1.7-9.3); Neutrophils # 17.2 K/mm3 (1.8-7.8); Neutrophils % 88.7 % (37.0-80.0); Platelet Count 254 K/mm3 (142-424); Red Blood Count 5.75 M/mm3 (4.60-6.20); Red Cell Distribution Width 12.8 % (11.5-17.5); White Blood Count 19.4 K/mm3 (4.5-13.0)
[2018-02-07 15:57] LABS: Anion Gap 29.3 mEq/L (5-15); Blood Urea Nitrogen 18 mg/dL (7-18); Calcium 8.7 mg/dL (8.5-10.1); Carbon Dioxide 14 mmol/L (21.0-32.0); Chloride 99 mmol/L (98-107); Glucose 327 mg/dL (74-106); Potassium 4.3 mmoL/L (3.5-5.1); Sodium 138 mmol/L (136-145)
[2018-02-07 16:14] LABS: Lymphocytes % 10 % (10-50); Neutrophils % 86 % (42-76); RBC Morphology Normal; Total Cells Counted 100
[2018-02-07 16:16] LABS: Acetone, Serum (Rapid) Moderate (None Detect)
--- NOTE | 2018-02-07 17:53 | History & Physical Report ---
*Admission Date: 02/07/18 *Chief complaint: Abdominal pain and hyperglycemia *History of present illness: 17-year-old male with type 1 diabetes since the age of 1 presented to the emergency department with complaint of malaise, stabbing abdominal pain, and hyperglycemia with blood sugars in the 400s upon awakening this morning. Patient uses an insulin pump and his insulin pump indicated that his line was clogged. That was when he awoke this morning and his blood sugar was in the 400s. He presented to the emergency department because of hyperglycemia along with his stabbing abdominal pain. The malaise and abdominal pain are symptoms he associates with DKA. Patient has had 2 prior admissions over the last 60 days with almost identical story. Patient tells me his blood sugars were in the 100s yesterday and it was only this morning that he developed hyperglycemia. This is now his third admission in the last 60 days. On all 3 of these admissions apparently his blood sugars are very good and then he will awaken next morning with hyperglycemia and indication from his insulin pump that his line is clogged. He does not know why this keeps happening. His terrazzo journeyman is Dr. Gonzales in [place]. He has an appointment with his terrazzo journeyman in 1 week [facility] History I have reviewed the patient's past medical history: Yes Medical History: Reports:: Diabetes Mellitus Type 1 Denies:: Cancer, Diabetes Mellitus Type 2, Internal Pacemaker, MRSA Laterality Cases: Bilateral: Tonsillectomy Other Surgeries: Yes: No Previous Surgery, Other. No: Pacemaker Amputation: No Fractures: Yes (right ankle) - *Social History Educational Level: Completed High School Smoking Status: Current every day smoker Tobacco Type: cigarettes # Packs/Day (cigarettes): 1 #Yrs smoked (if former smoker): 7 Alcohol Intake: current Alcohol Intake Frequency:: holidays/special occasions only Substance Use Type: denies use Occupational Status: unemployed Housing: house Household Members: family - Psychiatric History Expresses thoughts of harming self/others: None Suicide Plan Description: No Plan *Family Hx:: Cancer, Diabetes, Heart Attack, Hyperlipidemia, Hypertension, Stroke, Tuberculosis Review of Systems - Constitutional Reports fatigue, Reports lack of energy, Reports malaise, Denies body ache(s), Denies chills, Denies excessive sweating, Denies fever(s) - *Cardiovascular Denies chest pain, Denies chest pain at rest - *Respiratory Denies change in phlegm color, Denies chest congestion - *Gastrointestinal Reports abdominal pain, Denies belching, Denies bloating, Denies change in bowel habits, Denies constipation, Denies cramping, Denies loose stools Meds Home Medications Medication Instructions Recorded Confirmed Type Insulin Lispro [Humalog] 2.5 unit SQ DIRECTED 10/23/17 02/07/18 History insulin lispro (U- 100) 100 2.5 unit SQ .hourly ml 12/27/17 02/07/18 History unit/mL subcutaneous cartridge Allergies Allergy/AdvReac Type Severity Reaction Status Date / Time No Known Allergies Allergy Verified 12/27/17 10:51 Exam Vital signs and Labs for Last 24 Hours: Temp Pulse Resp BP Pulse Ox 98.1 F 105 H 18 153/71 H 100 02/07/18 16:30 02/07/18 16:30 02/07/18 16:30 02/07/18 16:30 02/07/18 16:30 Laboratory Results - last 24 hr 02/07/18 12:27: POC Glucose 535 H* 02/07/18 12:46: Urine Color Yellow, Urine Appearance Clear, Urine pH 5.5, Ur Specific [place] 1.025, Urine Protein Negative, Urine Glucose (UA) 3+, Urine Ketones 3+, Urine Blood Negative, Urine Nitrate Negative, Urine Bilirubin Negative, Urine Urobilinogen 0.2, Ur Leukocyte Esterase Negative, Urine RBC None, Urine WBC None, Ur Squamous Epith Cells Occasional, Urine Bacteria Trace 02/07/18 12:46: Sodium 132 L, Potassium 4.5, Chloride 91 L, Carbon Dioxide 12 L, Anion Gap 33.5 H, BUN 18, Creatinine 1.12, Estimated Creat Clear 99, Estimated GFR 84, Est GFR ( Amer) 102, Glucose 558 H*, Calcium 9.5, Phosphorus 4.6, Magnesium 2.0, Total Bilirubin 1.4 H, AST 18, ALT 29, Alkaline Phosphatase 149 H, Total Protein 8.4 H, Albumin 4.5, Globulin 3.9 H, Albumin/Globulin Ratio 1.2, Lipase 163, Acetone Level Moderate 02/07/18 13:20: VBG pH 7.19 L, VBG pCO2 29.3 L, VBG pO2 93.9 H, VBG HCO3 11.0 L, VBG Total CO2 11.9 L, VBG O2 Saturation 96.1 H, VBG Base Excess -17.2 L 02/07/18 15:32: POC Glucose 299 H 02/07/18 15:45: Sodium 138, Potassium 4.3, Chloride 99, Carbon Dioxide 14 L, Anion Gap 29.3 H, BUN 18, Creatinine 1.13, Estimated Creat Clear 86, Estimated GFR 84, Est GFR ( Amer) 101, Glucose 327 H D, Calcium 8.7, Acetone Level Moderate 02/07/18 15:45: WBC 19.4 H, RBC 5.75, Hgb 17.3, Hct 53.2 H, MCV 92.5, MCH 30.1, MCHC 32.6, RDW 12.8, Plt Count 254, MPV 9.2, Neut % (Auto) 88.7 H, Lymph % (Auto) 7.6 L, Jennings % (Auto) 2.9, Eos % (Auto) 0.5, Baso % (Auto) 0.3, Neut # (Auto) 17.2 H, Lymph # (Auto) 1.5, [place] # (Auto) 0.6, Eos # (Auto) 0.1, Baso # (Auto) 0.1, Total Counted 100, Neutrophils % (Manual) 86 H, Band Neutrophils % 2.0, Lymphocytes % (Manual) 10, Atypical Lymphs % 2.0, Platelet Estimate Normal, RBC Morphology Normal 02/07/18 16:42: POC Glucose 224 H I & O for Last 24 hours: Intake & Output 02/05/18 02/06/18 02/07/18 02/08/18 11:59 11:59 11:59 11:59 Intake Total 1420 / 1420 Balance 1420 / 1420 Weight 128 lb 1 oz Narrative: Patient is awake and alert and appears quite comfortable in bed and in no distress. He is alert and oriented x3. Oropharynx is moist. Neck is without lymphadenopathy. Lungs are clear to auscultation bilaterally. Heart has a regular rate and rhythm. Abdomen is thin, soft, nontender, nondistended with active bowel sounds. Neurologically there are no deficits. Sensory and motor function intact in all extremities. Assessment and Plan (1) DKA (diabetic ketoacidoses) Current visit: Yes Status: Acute Qualifiers: Diabetes mellitus type: type 1 Diabetes mellitus complication detail: without coma Qualified Code(s): E10.10 - Type 1 diabetes mellitus with ketoacidosis without coma Category: Medical Code(s): E13.10 - Other specified diabetes mellitus with ketoacidosis without coma - Assessment and plan all Dx Assessment and Plan for all problems:: Patient is already been treated with a fluid bolus and is on insulin drip. He is feeling better. His last blood sugar was 224. His blood sugars are decreasing nicely. Continue monitoring of electrolytes with serial BMPs. Serum acetone will be repeated in the morning. Maintain insulin drip at this time. Patient lives with his grandfather who is bringing a new set up for his insulin pump.
[2018-02-07 18:58] LABS: Anion Gap 19.2 mEq/L (5-15); Potassium 4.2 mmoL/L (3.5-5.1)
[2018-02-07 23:03] LABS: Calcium 8.2 mg/dL (8.5-10.1)
[2018-02-08 02:57] LABS: Anion Gap 23.6 mEq/L (5-15); Blood Urea Nitrogen 14 mg/dL (7-18); Calcium 7.8 mg/dL (8.5-10.1); Carbon Dioxide 16 mmol/L (21.0-32.0); Chloride 100 mmol/L (98-107); Glucose 266 mg/dL (74-106); Potassium 3.6 mmoL/L (3.5-5.1); Sodium 136 mmol/L (136-145)
[2018-02-08 03:02] LABS: Acetone, Serum (Rapid) Small (None Detect)
[2018-02-08 06:52] LABS: Anion Gap 15.3 mEq/L (5-15); Calcium 8.1 mg/dL (8.5-10.1); Potassium 3.3 mmoL/L (3.5-5.1)
--- NOTE | 2018-02-08 07:39 | Discharge Summary ---
General - General Admission date:: 02/07/18 Discharge date: 02/08/18 HPI HPI: 17-year-old male with type 1 diabetes since the age of 1 presented to the emergency department with complaint of malaise, stabbing abdominal pain, and hyperglycemia with blood sugars in the 400s upon awakening this morning. Patient uses an insulin pump and his insulin pump indicated that his line was clogged. That was when he awoke this morning and his blood sugar was in the 400s. He presented to the emergency department because of hyperglycemia along with his stabbing abdominal pain. The malaise and abdominal pain are symptoms he associates with DKA. Patient has had 2 prior admissions over the last 60 days with almost identical story. Patient tells me his blood sugars were in the 100s yesterday and it was only this morning that he developed hyperglycemia. This is now his third admission in the last 60 days. On all 3 of these admissions apparently his blood sugars are very good and then he will awaken next morning with hyperglycemia and indication from his insulin pump that his line is clogged. He does not know why this keeps happening. His floating operator is Dr. Gonzales in [place]. He has an appointment with his floating operator in 1 week Hospital Course Hospital Course: Patient was admitted and placed on insulin drip. Within 3 hours of admission his sugars were in the 200s. He was continued on normal saline and insulin drip. Overnight he was transitioned to D5 half-normal saline with potassium and his insulin drip. His blood sugar was 117 on the morning of February 08. Patient was allowed to place his new set up for his insulin pump and this was started. Insulin drip was discontinued and glucose was checked 1 hour later and blood sugar remained in the mid 100s Objective Vital signs: Temp Pulse Resp BP Pulse Ox 98.5 F 84 19 90/56 L 99 02/08/18 04:00 02/08/18 06:00 02/08/18 06:00 02/08/18 06:00 02/08/18 06:00 no acute distress - *Routine Respiratory Exam Present: CTA bilaterally - *Routine Cardiovascular Exam Present: RRR, Normal S1, Normal S2 - *Routine Abdominal Exam Present: soft, normoactive bowel sounds. Absent: tenderness, distended Results Labs on day of discharge: Labs from last 24 hours 02/08/18 02/08/18 02/08/18 06:25 06:20 04:16 WBC RBC Hgb Hct MCV MCH MCHC RDW Plt Count MPV Neut % (Auto) Lymph % (Auto) Colbert % (Auto) Eos % (Auto) Baso % (Auto) Neut # (Auto) Lymph # (Auto) Colbert # (Auto) Eos # (Auto) Baso # (Auto) Total Counted Neutrophils % (Manual) Band Neutrophils % Lymphocytes % (Manual) Atypical Lymphs % Platelet Estimate RBC Morphology VBG pH VBG pCO2 VBG pO2 VBG HCO3 VBG Total CO2 VBG O2 Saturation VBG Base Excess Sodium 140 Potassium 3.3 L Chloride 105 Carbon Dioxide 23 D Anion Gap 15.3 H BUN 16 Creatinine 0.78 Estimated Creat Clear 125 Estimated GFR 128 Est GFR ( Amer) 155 Glucose 132 H D POC Glucose 117 H 199 H Calcium 8.1 L Phosphorus Magnesium Total Bilirubin AST ALT Alkaline Phosphatase Total Protein Albumin Globulin Albumin/Globulin Ratio Lipase Urine Color Urine Appearance Urine pH Ur Specific [place] Urine Protein Urine Glucose (UA) Urine Ketones Urine Blood Urine Nitrate Urine Bilirubin Urine Urobilinogen Ur Leukocyte Esterase Urine RBC Urine WBC Ur Squamous Epith Cells Urine Bacteria Acetone Level 02/08/18 02/08/18 02/08/18 02:35 02:13 00:19 WBC RBC Hgb Hct MCV MCH MCHC RDW Plt Count MPV Neut % (Auto) Lymph % (Auto) Colbert % (Auto) Eos % (Auto) Baso % (Auto) Neut # (Auto) Lymph # (Auto) Colbert # (Auto) Eos # (Auto) Baso # (Auto) Total Counted Neutrophils % (Manual) Band Neutrophils % Lymphocytes % (Manual) Atypical Lymphs % Platelet Estimate RBC Morphology VBG pH VBG pCO2 VBG pO2 VBG HCO3 VBG Total CO2 VBG O2 Saturation VBG Base Excess Sodium 136 Potassium 3.6 Chloride 100 Carbon Dioxide 16 L D Anion Gap 23.6 H BUN 14 Creatinine 0.86 Estimated Creat Clear 114 Estimated GFR 115 Est GFR ( Amer) 139 D Glucose 266 H D POC Glucose 262 H 162 H Calcium 7.8 L Phosphorus Magnesium Total Bilirubin AST ALT Alkaline Phosphatase Total Protein Albumin Globulin Albumin/Globulin Ratio Lipase Urine Color Urine Appearance Urine pH Ur Specific [place] Urine Protein Urine Glucose (UA) Urine Ketones Urine Blood Urine Nitrate Urine Bilirubin Urine Urobilinogen Ur Leukocyte Esterase Urine RBC Urine WBC Ur Squamous Epith Cells Urine Bacteria Acetone Level Small 02/07/18 02/07/18 02/07/18 22:45 22:06 20:20 WBC RBC Hgb Hct MCV MCH MCHC RDW Plt Count MPV Neut % (Auto) Lymph % (Auto) Colbert % (Auto) Eos % (Auto) Baso % (Auto) Neut # (Auto) Lymph # (Auto) Colbert # (Auto) Eos # (Auto) Baso # (Auto) Total Counted Neutrophils % (Manual) Band Neutrophils % Lymphocytes % (Manual) Atypical Lymphs % Platelet Estimate RBC Morphology VBG pH VBG pCO2 VBG pO2 VBG HCO3 VBG Total CO2 VBG O2 Saturation VBG Base Excess Sodium 138 Potassium 4.0 Chloride 104 Carbon Dioxide 22 Anion Gap 16.0 H BUN 14 Creatinine 1.03 Estimated Creat Clear 95 Estimated GFR 93 Est GFR ( Amer) 113 Glucose 82 D POC Glucose 96 178 H Calcium 8.2 L Phosphorus Magnesium Total Bilirubin AST ALT Alkaline Phosphatase Total Protein Albumin Globulin Albumin/Globulin Ratio Lipase Urine Color Urine Appearance Urine pH Ur Specific [place] Urine Protein Urine Glucose (UA) Urine Ketones Urine Blood Urine Nitrate Urine Bilirubin Urine Urobilinogen Ur Leukocyte Esterase Urine RBC Urine WBC Ur Squamous Epith Cells Urine Bacteria Acetone Level 02/07/18 02/07/18 02/07/18 18:30 18:29 16:42 WBC RBC Hgb Hct MCV MCH MCHC RDW Plt Count MPV Neut % (Auto) Lymph % (Auto) Colbert % (Auto) Eos % (Auto) Baso % (Auto) Neut # (Auto) Lymph # (Auto) [place]bert # (Auto) Eos # (Auto) Baso # (Auto) Total Counted Neutrophils % (Manual) Band Neutrophils % Lymphocytes % (Manual) Atypical Lymphs % Platelet Estimate RBC Morphology VBG pH VBG pCO2 VBG pO2 VBG HCO3 VBG Total CO2 VBG O2 Saturation VBG Base Excess Sodium 135 L Potassium 4.2 Chloride 100 Carbon Dioxide 20 L D Anion Gap 19.2 H BUN 16 Creatinine 1.19 Estimated Creat Clear 82 Estimated GFR 79 Est GFR ( Amer) 95 Glucose 260 H D POC Glucose 246 H 224 H Calcium 8.0 L Phosphorus Magnesium Total Bilirubin AST ALT Alkaline Phosphatase Total Protein Albumin Globulin Albumin/Globulin Ratio Lipase Urine Color Urine Appearance Urine pH Ur Specific [place] Urine Protein Urine Glucose (UA) Urine Ketones Urine Blood Urine Nitrate Urine Bilirubin Urine Urobilinogen Ur Leukocyte Esterase Urine RBC Urine WBC Ur Squamous Epith Cells Urine Bacteria Acetone Level 02/07/18 02/07/18 02/07/18 15:45 15:45 15:32 WBC 19.4 H RBC 5.75 Hgb 17.3 Hct 53.2 H MCV 92.5 MCH 30.1 MCHC 32.6 RDW 12.8 Plt Count 254 MPV 9.2 Neut % (Auto) 88.7 H Lymph % (Auto) 7.6 L Colbert % (Auto) 2.9 Eos % (Auto) 0.5 Baso % (Auto) 0.3 Neut # (Auto) 17.2 H Lymph # (Auto) 1.5 Colbert # (Auto) 0.6 Eos # (Auto) 0.1 Baso # (Auto) 0.1 Total Counted 100 Neutrophils % (Manual) 86 H Band Neutrophils % 2.0 Lymphocytes % (Manual) 10 Atypical Lymphs % 2.0 Platelet Estimate Normal RBC Morphology Normal VBG pH VBG pCO2 VBG pO2 VBG HCO3 VBG Total CO2 VBG O2 Saturation VBG Base Excess Sodium 138 Potassium 4.3 Chloride 99 Carbon Dioxide 14 L Anion Gap 29.3 H BUN 18 Creatinine 1.13 Estimated Creat Clear 86 Estimated GFR 84 Est GFR ( Amer) 101 Glucose 327 H D POC Glucose 299 H Calcium 8.7 Phosphorus Magnesium Total Bilirubin AST ALT Alkaline Phosphatase Total Protein Albumin Globulin Albumin/Globulin Ratio Lipase Urine Color Urine Appearance Urine pH Ur Specific [place] Urine Protein Urine Glucose (UA) Urine Ketones Urine Blood Urine Nitrate Urine Bilirubin Urine Urobilinogen Ur Leukocyte Esterase Urine RBC Urine WBC Ur Squamous Epith Cells Urine Bacteria Acetone Level Moderate 02/07/18 02/07/18 02/07/18 13:20 12:46 12:46 WBC RBC Hgb Hct MCV MCH MCHC RDW Plt Count MPV Neut % (Auto) Lymph % (Auto) Colbert % (Auto) Eos % (Auto) Baso % (Auto) Neut # (Auto) Lymph # (Auto) Colbert # (Auto) Eos # (Auto) Baso # (Auto) Total Counted Neutrophils % (Manual) Band Neutrophils % Lymphocytes % (Manual) Atypical Lymphs % Platelet Estimate RBC Morphology VBG pH 7.19 L VBG pCO2 29.3 L VBG pO2 93.9 H VBG HCO3 11.0 L VBG Total CO2 11.9 L VBG O2 Saturation 96.1 H VBG Base Excess -17.2 L Sodium 132 L Potassium 4.5 Chloride 91 L Carbon Dioxide 12 L Anion Gap 33.5 H BUN 18 Creatinine 1.12 Estimated Creat Clear 99 Estimated GFR 84 Est GFR ( Amer) 102 Glucose 558 H* POC Glucose Calcium 9.5 Phosphorus 4.6 Magnesium 2.0 Total Bilirubin 1.4 H AST 18 ALT 29 Alkaline Phosphatase 149 H Total Protein 8.4 H Albumin 4.5 Globulin 3.9 H Albumin/Globulin Ratio 1.2 Lipase 163 Urine Color Yellow Urine Appearance Clear Urine pH 5.5 Ur Specific [place] 1.025 Urine Protein Negative Urine Glucose (UA) 3+ Urine Ketones 3+ Urine Blood Negative Urine Nitrate Negative Urine Bilirubin Negative Urine Urobilinogen 0.2 Ur Leukocyte Esterase Negative Urine RBC None Urine WBC None Ur Squamous Epith Cells Occasional Urine Bacteria Trace Acetone Level Moderate 02/07/18 12:27 WBC RBC Hgb Hct MCV MCH MCHC RDW Plt Count MPV Neut % (Auto) Lymph % (Auto) [place]bert % (Auto) Eos % (Auto) Baso % (Auto) Neut # (Auto) Lymph # (Auto) [place]bert # (Auto) Eos # (Auto) Baso # (Auto) Total Counted Neutrophils % (Manual) Band Neutrophils % Lymphocytes % (Manual) Atypical Lymphs % Platelet Estimate RBC Morphology VBG pH VBG pCO2 VBG pO2 VBG HCO3 VBG Total CO2 VBG O2 Saturation VBG Base Excess Sodium Potassium Chloride Carbon Dioxide Anion Gap BUN Creatinine Estimated Creat Clear Estimated GFR Est GFR ( Amer) Glucose POC Glucose 535 H* Calcium Phosphorus Magnesium Total Bilirubin AST ALT Alkaline Phosphatase Total Protein Albumin Globulin Albumin/Globulin Ratio Lipase Urine Color Urine Appearance Urine pH Ur Specific [place] Urine Protein Urine Glucose (UA) Urine Ketones Urine Blood Urine Nitrate Urine Bilirubin Urine Urobilinogen Ur Leukocyte Esterase Urine RBC Urine WBC Ur Squamous Epith Cells Urine Bacteria Acetone Level DS: Diagnosis - Discharge Diagnosis (1) DKA (diabetic ketoacidoses) Status: Acute Discharge Plan - Patient Discharge Instructions ACTIVITY: Continue current activity DIET: continue same diet Additional Instructions: keep apt with floating operator; discuss any issues with insulin pump Patient Instructions: DI for Hyperglycemia -- Adult, DI for Diabetic Ketoacidosis - Follow up Plan Follow up with: Iam Ibarra MD [Primary Care Provider] - Disposition: Home, Self-[facility] Medications: Home Medications Medication Instructions Recorded Confirmed Type RX: Insulin Lispro [Humalog] 2.5 unit SQ DIRECTED 10/23/17 02/07/18 History insulin lispro (U- 100) 100 2.5 unit SQ .hourly ml 12/27/17 02/07/18 History unit/mL subcutaneous cartridge Prescriptions/Medication Reconciliation: Continue insulin lispro (U- 100) 100 unit/mL subcutaneous cartridge 2.5 unit SQ .hourly ml RX: Insulin Lispro [Humalog] 2.5 unit SQ DIRECTED
--- NOTE | 2018-02-08 07:41 | Pharmacy Consult Notes ---
[facility] Pharmacy VTE Monitoring - Patient Demographics Admission date: 02/07/18 Report Date: 02/08/18 Time: 07:40 Allergies/Adverse Reactions: Patient Allergies No Known Allergies Allergy (Verified 12/27/17 10:51) Height: 1.73 m Weight: 58.088 kg Patient Problems: Current Active Problems DKA (diabetic ketoacidoses) (Acute) - VTE Risk Labs: VTE Related Lab Results Hgb 17.3 g/dL (14.1-18.0) 02/07/18 15:45 Hct 53.2 % (42.0-52.0) H 02/07/18 15:45 Plt Count 254 K/mm3 (142-424) 02/07/18 15:45 BUN 16 mg/dL (7-18) 02/08/18 06:20 Creatinine 0.78 mg/dL (0.70-1.30) 02/08/18 06:20 Estimated Creat Clear 125 mL/min (50-200) 02/08/18 06:20 Was VTE Risk Assessment Performed: Yes VTE Score: 1 VTE Risk Level: Very Low Risk - Prophylaxis VTE Prophylaxis Ordered?: Yes Types of VTE Prophylaxis: TEDS Knee High Location of Applied Device: Bilateral Lower Extremeties - VTE Diagnosis Confirmed Treatment or plan recommended: Continue Current Treatment
[2018-02-08 08:24] VITALS: BP 109/62
== END 2018-02-08 08:25 | disposition home or self-care (01) ==
LOC: ER 12:20 → 2ND 13:44 → INTOOBSV 13:44 → 2ND 14:00
PROVIDERS: ADMIT Family Medicine; ATTEND Emergency Medicine
CPT/HCPCS: 36415; 80048; 80053; 81001; 82009; 82803; 82962; 83690; 83735; 84100; 85007; 85025; 96365; 96367; 96375; 99282; G0378; J2405

== ENCOUNTER 2018-06-04 23:04 | Observation (INO) ==
[2018-06-04 23:24] LABS: Microscopic, Urine URINE MICROSCOPIC (MICROSCOPIC)
[2018-06-04 23:27] LABS: Appearance,Urine CLEAR (Clear); Basophils # 0.1 K/mm3 (0-0.2); Basophils % 0.9 % (0.1-2.0); Blood, Urine TRACE-L (Negative); Color,Urine YELLOW (Yellow); Eosinophils # 0.3 K/mm3 (0.0-0.4); Glucose,Urine (UA) 1+ (Negative); Hematocrit 52.7 % (42.0-52.0); Ketones,Urine 3+ (Negative); Leukocyte Esterase,Urine Negative (Negative); Lymphocytes # 4.2 K/mm3 (0.7-4.5); Lymphocytes % 26.8 % (10-50); Mean Corpuscular HGB Conc 35.1 g/dL (31.8-35.4); Mean Corpuscular Hemoglobin 29.7 pg (27.0-31.2); Mean Corpuscular Volume 84.5 fl (80-94); Mean Platelet Volume 9.6 fl (7.4-10.4); Monocytes # 0.7 K/mm3 (0.1-1.0); Monocytes % 4.2 % (1.7-9.3); Neutrophils # 10.3 K/mm3 (1.8-7.8); Neutrophils % 66.2 % (37.0-80.0); PH,Urine 5.5 (5.0-8.5); Platelet Count 301 K/mm3 (142-424); Protein,Urine 2+ (Negative); Red Blood Count 6.24 M/mm3 (4.60-6.20); Red Cell Distribution Width 12.8 % (11.5-17.5); Specific Gravity, Urine >= 1.030 (1.005-1.030); Urobilinogen,Urine 0.2 EU/dl (0.2); White Blood Count 15.6 K/mm3 (4.5-13.0)
[2018-06-04 23:32] LABS: Hemoglobin 18.5 g/dL (14.1-18.0)
[2018-06-04 23:33] LABS: Bilirubin,Urine Negative (Negative)
[2018-06-04 23:35] LABS: Amorphous Sediment,Urine 1+ /lpf; RBC,Urine Occasional #/hpf (0-3)
--- NOTE | 2018-06-04 23:39 | Emergency Department Note ---
ED Disposition Clinical Impression: IDDM (insulin dependent diabetes mellitus), Tobacco use DKA (diabetic ketoacidoses) Qualifiers: Diabetes mellitus type: type 1 Diabetes mellitus complication detail: without coma Qualified Code(s): E10.10 - Type 1 diabetes mellitus with ketoacidosis without coma Disposition: Admitted as Observation Condition on Discharge: Fair Instructions: DI for Acute Abdomen Referrals: Iam Ibarra MD [Primary Care Provider] - - Critical Care Critical Care Time: No Attestation: On 06/04/18, the high probability of a clinically significant, sudden or life threatening deterioration of the following system(s) required my full and direct attention, intervention and personal management. The time I documented below is in addition to time spent performing reported procedures but includes the following listed in this critical care notation. Medical Decision Making - Medical Records Medical records reviewed: Yes: I reviewed the patient's medical records. - Dez Inquiry Pt receiving controlled substance: No Vital Signs: 06/04/18 23:09 06/05/18 00:42 06/05/18 03:10 Temperature 97.9 F Temperature Source Oral Pulse Rate [Right Brachial] 116 H 89 89 Respiratory Rate 18 16 16 Blood Pressure [Right Arm] 153/91 H 138/80 142/80 H Blood Pressure Mean [Right Arm] 111 99 100 Blood Pressure Source [Right Arm] Automatic Cuff Automatic Cuff Blood Pressure Position [Right Arm] Sitting Sitting 02 Sat by Pulse Oximetry 98 99 98 Oxygen Delivery Method Room Air Room Air Room Air - Lab Data Lab results reviewed: Yes: I reviewed the patient's lab results. Lab Results 06/04/18 23:12: POC Glucose 317 H* 06/04/18 23:15: Urine Color Yellow, Urine Appearance Clear, Urine pH 5.5, Ur Specific [place] >= 1.030, Urine Protein 2+, Urine Glucose (UA) 1+, Urine Ketones 3+, Urine Blood Trace-l, Urine Nitrate Negative, Urine Bilirubin Negative, Urine Urobilinogen 0.2, Ur Leukocyte Esterase Negative, Urine RBC Occasional, Urine WBC 5-10, Amorphous Sediment 1+, Hyaline Casts 3-5 06/04/18 23:15: WBC 15.6 H, RBC 6.24 H, Hgb 18.5 H*, Hct 52.7 H, MCV 84.5, MCH 29.7, MCHC 35.1, RDW 12.8, Plt Count 301, MPV 9.6, Neut % (Auto) 66.2, Lymph % (Auto) 26.8, [place] % (Auto) 4.2, Eos % (Auto) 2.0, Baso % (Auto) 0.9, Neut # (Auto) 10.3 H, Lymph # (Auto) 4.2, [place] # (Auto) 0.7, Eos # (Auto) 0.3, Baso # (Auto) 0.1, Total Counted 100, Neutrophils % (Manual) 73, Band Neutrophils % 4.0, Lymphocytes % (Manual) 21, Monocytes % (Manual) 2, Platelet Estimate Normal, RBC Morphology Normal 06/04/18 23:15: Sodium 131 L, Potassium 4.3, Chloride 93 L, Carbon Dioxide 13 L, Anion Gap 29.3 H, BUN 16, Creatinine 1.13, Estimated Creat Clear 110, Estimated GFR 83, Est GFR ( Amer) 100, Glucose 299 H, Calcium 9.6, Total Bilirubin 1.0, AST 15, ALT 24, Alkaline Phosphatase 151 H, Total Protein 9.3 H, Albumin 4.8, Globulin 4.5 H, Albumin/Globulin Ratio 1.1, Amylase 70 06/04/18 23:15: Lipase 60 L 06/04/18 23:15: Acetone Level Small 06/04/18 23:15: Urine Opiates Screen Negative, Urine Methadone Screen Negative, Ur Barbituates Screen Negative, Ur Phencyclidine Scrn Negative, Ur Amphetamines Screen Negative, U Benzodiazepines Scrn Negative, Urine Cocaine Screen Negative, U Marijuana (THC) Screen Positive H 06/05/18 00:54: POC Glucose 210 H 06/05/18 02:54: POC Glucose 211 H 06/05/18 03:46: Acetone Level Small Result diagrams: 06/04/18 23:15 06/04/18 23:15 Orders (Tests/Meds): ED MEDICATIONS Generic Name Dose Route Start Last Admin Trade Name Freq PRN Reason Stop Dose Admin Sodium Chloride 1,000 mls @ 999 mls/hr 06/04/18 23:30 06/04/18 23:23 Sod Chlor 0.9% 1000ml Bag IV 06/05/18 00:30 999 mls/hr .Q1H1M JOE Administration Sodium Chloride 1,000 mls @ 999 mls/hr 06/05/18 00:30 06/05/18 00:38 Sod Chlor 0.9% 1000ml Bag IV 06/05/18 01:30 999 mls/hr .Q1H1M JOE Administration Sodium Chloride 1,000 mls @ 999 mls/hr 06/05/18 02:30 06/05/18 02:22 Sod Chlor 0.9% 1000ml Bag IV 06/05/18 03:30 999 mls/hr .Q1H1M JOE Administration Sodium Chloride 1,000 mls @ 999 mls/hr 06/05/18 03:15 06/05/18 03:10 Sod Chlor 0.9% 1000ml Bag IV 06/05/18 04:15 999 mls/hr .Q1H1M JOE Administration Discontinued Medications Generic Name Dose Route Start Last Admin Trade Name Freq PRN Reason Stop Dose Admin Insulin Human Regular 8 unit 06/04/18 23:39 06/04/18 23:53 Humulin R Insulin 100 Units/Ml 10ml Vial IVP 06/04/18 23:40 8 unit ONCE ONE Administration Ketorolac Tromethamine 30 mg 06/05/18 02:59 06/05/18 03:02 Toradol 30mg/Ml Vial IV 06/05/18 03:00 30 mg ONCE ONE Administration Ondansetron HCl 4 mg 06/05/18 03:04 06/05/18 03:10 Zofran 4mg/2ml Vial IV 06/05/18 03:05 4 mg ONCE ONE Administration ORDERS Category Date Time Status CT abdomen pelvis wo con Stat Cat Scan 06/05/18 00:01 Taken - CT Data CT Scan: Abdomen, Pelvis Time Received: 02:[address] Reviewed: Yes: I have viewed the radiologist's interpretation Preliminary Findings: Normal/NAD Nausea/Vomiting/Diarrhea HPI - General Chief complaint: Abdominal Pain Stated complaint: Pt feels his sugar is high, dry mouth,nausea Time Seen by Provider: 06/04/18 23:37 Mode of Arrival: Ambulatory Source of Information: Patient, Significant Other, Medical Record Limitations: No Limitations Description of Symptoms (Recalled from ER Triage Doc. by RN): Pt states he has abd pain, no other symptoms reported at this time. - History of Present Illness HPI Narrative: pt with crampy abd pain with n/v with hx of iddm and dka MD complaint: nausea, vomiting Onset (ago): day(s) Associated Abdominal Pain: Yes Location of pain: epigastric Severity: moderate Associated symptoms: denies other symptoms - Related Data Home Medications Medication Instructions Recorded Confirmed Insulin Lispro [Humalog] 2.5 unit SQ DIRECTED 10/23/17 03/23/18 insulin lispro (U- 100) 100 2.5 unit SQ .hourly ml 12/27/17 03/23/18 unit/mL subcutaneous cartridge Allergies Allergy/AdvReac Type Severity Reaction Status Date / Time No Known Allergies Allergy Verified 03/23/18 13:58 [facility] History - Hepatitis A Screen Drug use history?: No High risk sexual behaviors?: No History of sexually transmitted infection?: No Currently employed?: No Childcare worker?: No Do you have indoor plumbing?: Yes Do you have electricity?: Yes Attestation statement:: This patient has been screened for Hepatitis A risk factors. I have reviewed the patient's past medical history: Yes Medical History: Reports:: Diabetes Mellitus Type 1 Denies:: Cancer, Diabetes Mellitus Type 2, Internal Pacemaker, MRSA Laterality Cases: Bilateral: Tonsillectomy Other Surgeries: Yes: No Previous Surgery, Other. No: Pacemaker Amputation: No Fractures: Yes (right ankle) - Social History Smoking Status: Current every day smoker Tobacco Type: cigarettes # Packs/Day (cigarettes): 1 #Yrs smoked (if former smoker): 7 Alcohol Intake: never Alcohol Intake Frequency:: holidays/special occasions only Substance Use Type: denies use Occupational Status: unemployed Housing: house Household Members: family - Psychiatric History Expresses thoughts of harming self/others: None Suicide Plan Description: No Plan Family Hx:: Cancer, Diabetes, Heart Attack, Hyperlipidemia, Hypertension, Stroke, Tuberculosis ROS Obtained: Yes All systems reviewed & no additional complaints - Constitutional Constitutional: Denies fever(s) - Eyes Eyes: Denies change in vision - ENT Ears, Nose, Mouth, and Throat: Denies sore throat - Cardiovascular Cardiovascular: Denies chest pain - Respiratory Respiratory: No cough - Gastrointestinal Gastrointestingal: Reports: nausea, vomiting. Denies: abdominal pain - Genitourinary Male Genitourinary: Denies hematuria - Musculoskeletal Musculoskeletal: Denies joint pain - Integumentary/Breasts Skin/Breast: Denies rash - Neurologic Neurologic: Denies seizure-like activity Physical Exam - General General appearance: alert, in no apparent distress - Head Head exam: normocephalic - Eye Eye exam: Present: PERRL, EOMI. Absent: scleral icterus - ENT ENT exam: Present: mucous membranes dry - Neck Neck exam: Present: trachea midline - Respiratory Respiratory exam: Present: normal lung sounds bilaterally. Absent: respiratory distress - Cardiovascular Cardiovascular exam: Present: regular rate - Abdominal Exam Abdominal exam: Present: soft - Extremities Exam Extremities exam: Present: full ROM - Neurological Exam Neurological exam: Present: alert, oriented X3, CN II-XII intact - Psychiatric Psychiatric exam: Present: normal affect - Skin Skin exam: Absent: rash
[2018-06-04 23:42] LABS: Albumin Level 4.8 gm/dL (3.4-5.0); Anion Gap 29.3 mEq/L (5-15); Calcium 9.6 mg/dL (8.5-10.1); Potassium 4.3 mmoL/L (3.5-5.1); Total Protein,Serum 9.3 gm/dL (6.4-8.2)
[2018-06-04 23:43] LABS: Albumin/Globulin Ratio 1.1 (1.1-1.8); Globulin 4.5 gm/dl (1.3-3.2)
[2018-06-04 23:45] LABS: Lymphocytes % 21 % (10-50); Monocytes % 2 % (2-9); Neutrophils % 73 % (42-76); RBC Morphology Normal; Total Cells Counted 100
[2018-06-05 03:21] LABS: Amphetamine/Metha Screen,Urine Negative ng/mL (<1000); Barbiturates Screen,Urine Negative ng/mL (<200); Benzodiazepines Screen,Urine Negative ng/mL (<200); Cannabinoid Screen,Urine Positive ng/mL (<50); Cocaine Screen,Urine Negative ng/mL (<300); Methadone Screen,Urine Negative ng/mL (<300); Opiate Screen,Urine Negative ng/mL (<300); Phencyclidine Screen,Urine Negative ng/mL (<25)
[2018-06-05 06:49] LABS: Basophils # 0.1 K/mm3 (0-0.2); Basophils % 0.5 % (0.1-2.0); Eosinophils # 0.1 K/mm3 (0.0-0.4); Eosinophils % 0.8 % (0.1-12.0); Hematocrit 46.3 % (42.0-52.0); Lymphocytes # 1.8 K/mm3 (0.7-4.5); Lymphocytes % 11.7 % (10-50); Mean Corpuscular Hemoglobin 30.3 pg (27.0-31.2); Mean Corpuscular Volume 86.5 fl (80-94); Mean Platelet Volume 10.2 fl (7.4-10.4); Monocytes # 0.7 K/mm3 (0.1-1.0); Monocytes % 4.3 % (1.7-9.3); Neutrophils # 12.9 K/mm3 (1.8-7.8); Neutrophils % 82.7 % (37.0-80.0); Platelet Count 237 K/mm3 (142-424); Red Blood Count 5.35 M/mm3 (4.60-6.20); Red Cell Distribution Width 12.9 % (11.5-17.5); White Blood Count 15.6 K/mm3 (4.5-13.0)
[2018-06-05 07:03] LABS: Potassium 5.3 mmoL/L (3.5-5.1)
[2018-06-05 07:21] LABS: Anion Gap 27.3 mEq/L (5-15)
[2018-06-05 07:22] LABS: Calcium 7.9 mg/dL (8.5-10.1)
[2018-06-05 07:33] LABS: Hemoglobin 16.1 g/dL (14.1-18.0)
--- NOTE | 2018-06-05 07:50 | Pharmacy Consult Notes ---
[facility] Pharmacy VTE Monitoring - Patient Demographics Admission date: 06/04/18 Report Date: 06/05/18 Time: 07:50 Allergies/Adverse Reactions: Patient Allergies No Known Allergies Allergy (Verified 03/23/18 13:58) Height: 1.68 m Weight: 63.503 kg Patient Problems: Current Active Problems (Updated 06/05/18 @ 04:16 by Iam Ibarra MD) DKA (diabetic ketoacidoses) (Acute) IDDM (insulin dependent diabetes mellitus) (Acute) Tobacco use (Acute) - VTE Risk Labs: VTE Related Lab Results Hgb 16.1 g/dL (14.1-18.0) D 06/05/18 05:35 Hct 46.3 % (42.0-52.0) 06/05/18 05:35 Plt Count 237 K/mm3 (142-424) 06/05/18 05:35 BUN 12 mg/dL (7-18) 06/05/18 05:35 Creatinine 1.02 mg/dL (0.70-1.30) 06/05/18 05:35 Estimated Creat Clear 104 mL/min (50-200) 06/05/18 05:35 VTE Score: 1 VTE Risk Level: Very Low Risk - Prophylaxis VTE Prophylaxis Ordered?: Yes Types of VTE Prophylaxis: TEDS Knee High Location of Applied Device: Bilateral Lower Extremeties - VTE Diagnosis Confirmed Treatment or plan recommended: Continue Current Treatment
--- NOTE | 2018-06-05 12:54 | History & Physical Report ---
*Admission Date: 06/04/18 *Chief complaint: vomiting *History of present illness: this iddm pt presented to the ed -pt with hx of dka and he reports insulin pump out of insulin [facility] History I have reviewed the patient's past medical history: Yes Medical History: Reports:: Diabetes Mellitus Type 1 Denies:: Cancer, Diabetes Mellitus Type 2, Internal Pacemaker, MRSA *Have you ever received a pneumonia vaccine?: No *Have you received a flu vaccine this season?: Yes Laterality Cases: Bilateral: Tonsillectomy Other Surgeries: Yes: No Previous Surgery, Other. No: Pacemaker Amputation: No Fractures: Yes (right ankle) - *Social History Educational Level: Completed High School Smoking Status: Current every day smoker Tobacco Type: cigarettes # Packs/Day (cigarettes): 1 #Yrs smoked (if former smoker): 7 Alcohol Intake: never Alcohol Intake Frequency:: holidays/special occasions only Substance Use Type: marijuana *Occupational Status:: unemployed Housing: house Household Members: family *Travel in the last 8 weeks: None - Psychiatric History Expresses thoughts of harming self/others: None Suicide Plan Description: No Plan Family Hx:: Cancer, Diabetes, Heart Attack, Hyperlipidemia, Hypertension, Stroke, Tuberculosis Review of Systems - Constitutional Reports body ache(s), Reports fatigue - Eyes Denies change in vision - ENT Denies sore throat - *Cardiovascular Denies chest pain at rest - *Respiratory Denies cough - *Gastrointestinal Reports vomiting - *Genitourinary Denies blood in urine - *Musculoskeletal Reports body aches, Denies joint pain - Integumentary/Breasts Denies rash - *Neurologic Denies seizure-like activity - Psychiatric Denies anxiety Meds Home Medications Medication Instructions Recorded Confirmed Type Insulin Lispro [Humalog] 0 unit SQ DIRECTED 10/23/17 06/05/18 History insulin lispro (U- 100) 100 2.5 unit SQ Q1H ml 12/27/17 06/05/18 History unit/mL subcutaneous cartridge Allergies Allergy/AdvReac Type Severity Reaction Status Date / Time No Known Allergies Allergy Verified 03/23/18 13:58 Exam Vital signs and Labs for Last 24 Hours: Temp Pulse Resp BP Pulse Ox 99.4 F 88 17 133/73 100 06/05/18 08:00 06/05/18 11:20 06/05/18 11:20 06/05/18 11:20 06/05/18 11:20 Laboratory Results - last 24 hr 06/04/18 23:12: POC Glucose 317 H* 06/04/18 23:15: Urine Color Yellow, Urine Appearance Clear, Urine pH 5.5, Ur Specific [place] >= 1.030, Urine Protein 2+, Urine Glucose (UA) 1+, Urine Ketones 3+, Urine Blood Trace-l, Urine Nitrate Negative, Urine Bilirubin Negative, Urine Urobilinogen 0.2, Ur Leukocyte Esterase Negative, Urine RBC Occasional, Urine WBC 5-10, Amorphous Sediment 1+, Hyaline Casts 3-5 06/04/18 23:15: WBC 15.6 H, RBC 6.24 H, Hgb 18.5 H*, Hct 52.7 H, MCV 84.5, MCH 29.7, MCHC 35.1, RDW 12.8, Plt Count 301, MPV 9.6, Neut % (Auto) 66.2, Lymph % (Auto) 26.8, [place] % (Auto) 4.2, Eos % (Auto) 2.0, Baso % (Auto) 0.9, Neut # (Auto) 10.3 H, Lymph # (Auto) 4.2, [place] # (Auto) 0.7, Eos # (Auto) 0.3, Baso # (Auto) 0.1, Total Counted 100, Neutrophils % (Manual) 73, Band Neutrophils % 4.0, Lymphocytes % (Manual) 21, Monocytes % (Manual) 2, Platelet Estimate Normal, RBC Morphology Normal 06/04/18 23:15: Sodium 131 L, Potassium 4.3, Chloride 93 L, Carbon Dioxide 13 L, Anion Gap 29.3 H, BUN 16, Creatinine 1.13, Estimated Creat Clear 110, Estimated GFR 83, Est GFR ( Amer) 100, Glucose 299 H, Calcium 9.6, Total Bilirubin 1.0, AST 15, ALT 24, Alkaline Phosphatase 151 H, Total Protein 9.3 H, Albumin 4.8, Globulin 4.5 H, Albumin/Globulin Ratio 1.1, Amylase 70 06/04/18 23:15: Lipase 60 L 06/04/18 23:15: Acetone Level Small 06/04/18 23:15: Urine Opiates Screen Negative, Urine Methadone Screen Negative, Ur Barbituates Screen Negative, Ur Phencyclidine Scrn Negative, Ur Amphetamines Screen Negative, U Benzodiazepines Scrn Negative, Urine Cocaine Screen Negative, U Marijuana (THC) Screen Positive H 06/05/18 00:54: POC Glucose 210 H 06/05/18 02:54: POC Glucose 211 H 06/05/18 03:46: Acetone Level Small 06/05/18 05:35: WBC 15.6 H, RBC 5.35, Hgb 16.1 D, Hct 46.3, MCV 86.5, MCH 30.3, MCHC 35.0, RDW 12.9, Plt Count 237, MPV 10.2, Neut % (Auto) 82.7 H, Lymph % (Auto) 11.7, [place] % (Auto) 4.3, Eos % (Auto) 0.8, Baso % (Auto) 0.5, Neut # (Auto) 12.9 H, Lymph # (Auto) 1.8, [place] # (Auto) 0.7, Eos # (Auto) 0.1, Baso # (Auto) 0.1 06/05/18 05:35: Sodium 133 L, Potassium 5.3 H D, Chloride 102, Carbon Dioxide 9 L* D, Anion Gap 27.3 H, BUN 12, Creatinine 1.02, Estimated Creat Clear 104, Estimated GFR 93, Est GFR ( Amer) 113, Glucose 239 H D, Calcium 7.9 L D, Magnesium 1.6 06/05/18 06:15: POC Glucose 230 H 06/05/18 08:55: POC Glucose 203 H 06/05/18 10:04: POC Glucose 228 H 06/05/18 11:56: POC Glucose 190 H I & O for Last 24 hours: Intake & Output 06/03/18 06/04/18 06/05/18 06/06/18 11:59 11:59 11:59 11:59 Intake Total 120 / 120 Balance 120 / 120 Weight 140 lb - Constitutional no acute distress, thin - *Routine HEENT Exam Head: Present: normocephalic Eye: Present: EOMI, PERRL. Absent: conjunctival icterus ENT: Present: mucous membranes dry - *Routine Neck Exam Present: supple. Absent: JVD - *Routine Respiratory Exam Present: CTA bilaterally - *Routine Cardiovascular Exam Present: RRR. Absent: murmur - *Routine Abdominal Exam Present: soft - *Routine Extremities Exam Absent: calf tenderness - Routine Back/Spine/Pelvis Exam Back/Spine: Absent: CVA tenderness - *Routine Skin Exam Present: intact - *Routine Neurological Exam Present: alert, oriented X3, CN II-XII intact - Routine Psychiatric Exam Present: normal affect Assessment and Plan (1) DKA (diabetic ketoacidoses) Current visit: Yes Status: Acute Qualifiers: Diabetes mellitus type: type 1 Diabetes mellitus complication detail: without coma Qualified Code(s): E10.10 - Type 1 diabetes mellitus with ketoacidosis without coma Category: Medical Code(s): E13.10 - Other specified diabetes mellitus with ketoacidosis without coma (2) IDDM (insulin dependent diabetes mellitus) Current visit: Yes Status: Acute Category: Medical Code(s): E11.9 - Type 2 diabetes mellitus without complications; Z79.4 - FDC (current) use of insulin (3) Tobacco use Current visit: Yes Status: Acute Category: Medical Code(s): Z72.0 - Tobacco use
[2018-06-05 15:11] VITALS: BP 126/63
--- NOTE | 2018-06-05 15:59 | Discharge Summary ---
General - General Admission date:: 06/05/18 Discharge date: 06/05/18 HPI HPI: this iddm pt presented to the ed -pt with hx of dka and he reports insulin pump out of insulin Hospital Course Hospital Course: pt felt better this am but still with inc anion gap and low bicarb - pt with ivf fluids and insulin and slowly improving - but has demanded to leave ama Objective Vital signs: Temp Pulse Resp BP Pulse Ox 99.4 F 99 H 16 126/63 97 06/05/18 08:00 06/05/18 14:40 06/05/18 14:40 06/05/18 14:40 06/05/18 14:40 no acute distress - *Routine HEENT Exam Head: Present: normocephalic Eye: Present: EOMI, PERRL ENT: Present: mucous membranes dry - *Routine Neck Exam Absent: JVD - *Routine Respiratory Exam Absent: respiratory distress - *Routine Cardiovascular Exam Present: RRR - *Routine Abdominal Exam Present: soft - *Routine Extremities Exam Present: full ROM - *Routine Skin Exam Present: intact - *Routine Neurological Exam Present: alert, oriented X3, CN II-XII intact - Routine Psychiatric Exam Present: normal affect Results Labs on day of discharge: Labs from last 24 hours 06/05/18 06/05/18 06/05/18 13:58 13:14 11:56 WBC RBC Hgb Hct MCV MCH MCHC RDW Plt Count MPV Neut % (Auto) Lymph % (Auto) [place] % (Auto) Eos % (Auto) Baso % (Auto) Neut # (Auto) Lymph # (Auto) [place] # (Auto) Eos # (Auto) Baso # (Auto) Total Counted Neutrophils % (Manual) Band Neutrophils % Lymphocytes % (Manual) Monocytes % (Manual) Platelet Estimate RBC Morphology Sodium Potassium Chloride Carbon Dioxide Anion Gap BUN Creatinine Estimated Creat Clear Estimated GFR Est GFR ( Amer) Glucose POC Glucose 260 H 190 H Calcium Magnesium Total Bilirubin AST ALT Alkaline Phosphatase Total Protein Albumin Globulin Albumin/Globulin Ratio Amylase Lipase Urine Color Urine Appearance Urine pH Ur Specific [place] Urine Protein Urine Glucose (UA) Urine Ketones Urine Blood Urine Nitrate Urine Bilirubin Urine Urobilinogen Ur Leukocyte Esterase Urine RBC Urine WBC Amorphous Sediment Hyaline Casts Urine Opiates Screen Urine Methadone Screen Ur Barbituates Screen Ur Phencyclidine Scrn Ur Amphetamines Screen U Benzodiazepines Scrn Urine Cocaine Screen U Marijuana (THC) Screen Acetone Level Detected 06/05/18 06/05/18 06/05/18 10:04 08:55 06:15 WBC RBC Hgb Hct MCV MCH MCHC RDW Plt Count MPV Neut % (Auto) Lymph % (Auto) [place] % (Auto) Eos % (Auto) Baso % (Auto) Neut # (Auto) Lymph # (Auto) [place] # (Auto) Eos # (Auto) Baso # (Auto) Total Counted Neutrophils % (Manual) Band Neutrophils % Lymphocytes % (Manual) Monocytes % (Manual) Platelet Estimate RBC Morphology Sodium Potassium Chloride Carbon Dioxide Anion Gap BUN Creatinine Estimated Creat Clear Estimated GFR Est GFR ( Amer) Glucose POC Glucose 228 H 203 H 230 H Calcium Magnesium Total Bilirubin AST ALT Alkaline Phosphatase Total Protein Albumin Globulin Albumin/Globulin Ratio Amylase Lipase Urine Color Urine Appearance Urine pH Ur Specific [place] Urine Protein Urine Glucose (UA) Urine Ketones Urine Blood Urine Nitrate Urine Bilirubin Urine Urobilinogen Ur Leukocyte Esterase Urine RBC Urine WBC Amorphous Sediment Hyaline Casts Urine Opiates Screen Urine Methadone Screen Ur Barbituates Screen Ur Phencyclidine Scrn Ur Amphetamines Screen U Benzodiazepines Scrn Urine Cocaine Screen U Marijuana (THC) Screen Acetone Level 06/05/18 06/05/18 06/05/18 05:35 05:35 03:46 WBC 15.6 H RBC 5.35 Hgb 16.1 D Hct 46.3 MCV 86.5 MCH 30.3 MCHC 35.0 RDW 12.9 Plt Count 237 MPV 10.2 Neut % (Auto) 82.7 H Lymph % (Auto) 11.7 [place] % (Auto) 4.3 Eos % (Auto) 0.8 Baso % (Auto) 0.5 Neut # (Auto) 12.9 H Lymph # (Auto) 1.8 [place] # (Auto) 0.7 Eos # (Auto) 0.1 Baso # (Auto) 0.1 Total Counted Neutrophils % (Manual) Band Neutrophils % Lymphocytes % (Manual) Monocytes % (Manual) Platelet Estimate RBC Morphology Sodium 133 L Potassium 5.3 H D Chloride 102 Carbon Dioxide 9 L* D Anion Gap 27.3 H BUN 12 Creatinine 1.02 Estimated Creat Clear 104 Estimated GFR 93 Est GFR ( Amer) 113 Glucose 239 H D POC Glucose Calcium 7.9 L D Magnesium 1.6 Total Bilirubin AST ALT Alkaline Phosphatase Total Protein Albumin Globulin Albumin/Globulin Ratio Amylase Lipase Urine Color Urine Appearance Urine pH Ur Specific [place] Urine Protein Urine Glucose (UA) Urine Ketones Urine Blood Urine Nitrate Urine Bilirubin Urine Urobilinogen Ur Leukocyte Esterase Urine RBC Urine WBC Amorphous Sediment Hyaline Casts Urine Opiates Screen Urine Methadone Screen Ur Barbituates Screen Ur Phencyclidine Scrn Ur Amphetamines Screen U Benzodiazepines Scrn Urine Cocaine Screen U Marijuana (THC) Screen Acetone Level Small 06/05/18 06/05/18 06/04/18 02:54 00:54 23:15 WBC RBC Hgb Hct MCV MCH MCHC RDW Plt Count MPV Neut % (Auto) Lymph % (Auto) [place] % (Auto) Eos % (Auto) Baso % (Auto) Neut # (Auto) Lymph # (Auto) [place] # (Auto) Eos # (Auto) Baso # (Auto) Total Counted Neutrophils % (Manual) Band Neutrophils % Lymphocytes % (Manual) Monocytes % (Manual) Platelet Estimate RBC Morphology Sodium Potassium Chloride Carbon Dioxide Anion Gap BUN Creatinine Estimated Creat Clear Estimated GFR Est GFR ( Amer) Glucose POC Glucose 211 H 210 H Calcium Magnesium Total Bilirubin AST ALT Alkaline Phosphatase Total Protein Albumin Globulin Albumin/Globulin Ratio Amylase Lipase Urine Color Urine Appearance Urine pH Ur Specific [place] Urine Protein Urine Glucose (UA) Urine Ketones Urine Blood Urine Nitrate Urine Bilirubin Urine Urobilinogen Ur Leukocyte Esterase Urine RBC Urine WBC Amorphous Sediment Hyaline Casts Urine Opiates Screen Negative Urine Methadone Screen Negative Ur Barbituates Screen Negative Ur Phencyclidine Scrn Negative Ur Amphetamines Screen Negative U Benzodiazepines Scrn Negative Urine Cocaine Screen Negative U Marijuana (THC) Screen Positive H Acetone Level 06/04/18 06/04/18 06/04/18 23:15 23:15 23:15 WBC RBC Hgb Hct MCV MCH MCHC RDW Plt Count MPV Neut % (Auto) Lymph % (Auto) [place] % (Auto) Eos % (Auto) Baso % (Auto) Neut # (Auto) Lymph # (Auto) [place] # (Auto) Eos # (Auto) Baso # (Auto) Total Counted Neutrophils % (Manual) Band Neutrophils % Lymphocytes % (Manual) Monocytes % (Manual) Platelet Estimate RBC Morphology Sodium 131 L Potassium 4.3 Chloride 93 L Carbon Dioxide 13 L Anion Gap 29.3 H BUN 16 Creatinine 1.13 Estimated Creat Clear 110 Estimated GFR 83 Est GFR ( Amer) 100 Glucose 299 H POC Glucose Calcium 9.6 Magnesium Total Bilirubin 1.0 AST 15 ALT 24 Alkaline Phosphatase 151 H Total Protein 9.3 H Albumin 4.8 Globulin 4.5 H Albumin/Globulin Ratio 1.1 Amylase 70 Lipase 60 L Urine Color Urine Appearance Urine pH Ur Specific [place] Urine Protein Urine Glucose (UA) Urine Ketones Urine Blood Urine Nitrate Urine Bilirubin Urine Urobilinogen Ur Leukocyte Esterase Urine RBC Urine WBC Amorphous Sediment Hyaline Casts Urine Opiates Screen Urine Methadone Screen Ur Barbituates Screen Ur Phencyclidine Scrn Ur Amphetamines Screen U Benzodiazepines Scrn Urine Cocaine Screen U Marijuana (THC) Screen Acetone Level Small 06/04/18 06/04/18 06/04/18 23:15 23:15 23:12 WBC 15.6 H RBC 6.24 H Hgb 18.5 H* Hct 52.7 H MCV 84.5 MCH 29.7 MCHC 35.1 RDW 12.8 Plt Count 301 MPV 9.6 Neut % (Auto) 66.2 Lymph % (Auto) 26.8 [place] % (Auto) 4.2 Eos % (Auto) 2.0 Baso % (Auto) 0.9 Neut # (Auto) 10.3 H Lymph # (Auto) 4.2 [place] # (Auto) 0.7 Eos # (Auto) 0.3 Baso # (Auto) 0.1 Total Counted 100 Neutrophils % (Manual) 73 Band Neutrophils % 4.0 Lymphocytes % (Manual) 21 Monocytes % (Manual) 2 Platelet Estimate Normal RBC Morphology Normal Sodium Potassium Chloride Carbon Dioxide Anion Gap BUN Creatinine Estimated Creat Clear Estimated GFR Est GFR ( Amer) Glucose POC Glucose 317 H* Calcium Magnesium Total Bilirubin AST ALT Alkaline Phosphatase Total Protein Albumin Globulin Albumin/Globulin Ratio Amylase Lipase Urine Color Yellow Urine Appearance Clear Urine pH 5.5 Ur Specific [place] >= 1.030 Urine Protein 2+ Urine Glucose (UA) 1+ Urine Ketones 3+ Urine Blood Trace-l Urine Nitrate Negative Urine Bilirubin Negative Urine Urobilinogen 0.2 Ur Leukocyte Esterase Negative Urine RBC Occasional Urine WBC 5-10 Amorphous Sediment 1+ Hyaline Casts 3-5 Urine Opiates Screen Urine Methadone Screen Ur Barbituates Screen Ur Phencyclidine Scrn Ur Amphetamines Screen U Benzodiazepines Scrn Urine Cocaine Screen U Marijuana (THC) Screen Acetone Level DS: Diagnosis - Discharge Diagnosis (1) DKA (diabetic ketoacidoses) Status: Acute (2) IDDM (insulin dependent diabetes mellitus) Status: Acute (3) Tobacco use Status: Acute Discharge Plan - Patient Discharge Instructions ACTIVITY: Continue current activity DIET: continue same diet - Follow up Plan Disposition: Left Against Medical Advice Home Medications: Home Medications Medication Instructions Recorded Confirmed Type Insulin Lispro [Humalog] 0 unit SQ DIRECTED 10/23/17 06/05/18 History insulin lispro (U- 100) 100 2.5 unit SQ Q1H ml 12/27/17 06/05/18 History unit/mL subcutaneous cartridge Prescriptions/Medication Reconciliation: Continued insulin lispro (U- 100) 100 unit/mL subcutaneous cartridge 2.5 unit SQ Q1H ml Insulin Lispro [Humalog] 0 unit SQ DIRECTED
== END 2018-06-05 16:16 | disposition left against medical advice (07) ==
LOC: 2ND 23:04 → ER 23:04 → 2ND 06-05 05:21 → ICU 06-05 11:06
PROVIDERS: ADMIT Emergency Medicine; ATTEND Emergency Medicine
CPT/HCPCS: 36415; 74176; 80048; 80053; 80305; 81001; 82009; 82150; 82962; 83690; 83735; 85007; 85025; 96365; 96366; 96375; 99284; G0378; J2405

== ENCOUNTER 2018-06-06 00:37 | Observation (INO) ==
[2018-06-06 01:18] LABS: Microscopic, Urine URINE MICROSCOPIC (MICROSCOPIC)
[2018-06-06 01:19] LABS: Basophils # 0.1 K/mm3 (0-0.2); Basophils % 0.6 % (0.1-2.0); Eosinophils # 0.2 K/mm3 (0.0-0.4); Eosinophils % 2.1 % (0.1-12.0); Hematocrit 48.3 % (42.0-52.0); Hemoglobin 16.7 g/dL (14.1-18.0); Lymphocytes # 2.7 K/mm3 (0.7-4.5); Lymphocytes % 23.7 % (10-50); Mean Corpuscular HGB Conc 34.7 g/dL (31.8-35.4); Mean Corpuscular Hemoglobin 29.6 pg (27.0-31.2); Mean Corpuscular Volume 85.3 fl (80-94); Mean Platelet Volume 9.4 fl (7.4-10.4); Monocytes # 0.4 K/mm3 (0.1-1.0); Monocytes % 3.5 % (1.7-9.3); Neutrophils % 70.1 % (37.0-80.0); Platelet Count 246 K/mm3 (142-424); Red Blood Count 5.66 M/mm3 (4.60-6.20); Red Cell Distribution Width 13.2 % (11.5-17.5); White Blood Count 11.3 K/mm3 (4.5-13.0)
[2018-06-06 01:27] LABS: Appearance,Urine CLEAR (Clear); Bilirubin,Urine Negative (Negative); Blood, Urine Negative (Negative); Color,Urine YELLOW (Yellow); Glucose,Urine (UA) 2+ (Negative); Ketones,Urine 3+ (Negative); Leukocyte Esterase,Urine Negative (Negative); PH,Urine 5.5 (5.0-8.5); Protein,Urine TRACE (Negative); Specific Gravity, Urine >= 1.030 (1.005-1.030); Urobilinogen,Urine 0.2 EU/dl (0.2)
[2018-06-06 01:31] LABS: Albumin Level 4.3 gm/dL (3.4-5.0); Albumin/Globulin Ratio 1.1 (1.1-1.8); Bilirubin,Total 0.7 mg/dL (0.2-1.0); C-Reactive Protein 0.4 mg/L (0.0-0.9); Globulin 3.9 gm/dl (1.3-3.2); Total Protein,Serum 8.2 gm/dL (6.4-8.2)
[2018-06-06 01:34] LABS: Amphetamine/Metha Screen,Urine Negative ng/mL (<1000); Barbiturates Screen,Urine Negative ng/mL (<200); Benzodiazepines Screen,Urine Negative ng/mL (<200); Cannabinoid Screen,Urine Positive ng/mL (<50); Cocaine Screen,Urine Negative ng/mL (<300); Methadone Screen,Urine Negative ng/mL (<300); Opiate Screen,Urine Negative ng/mL (<300); Phencyclidine Screen,Urine Negative ng/mL (<25)
[2018-06-06 01:37] LABS: Bacteria,Urine 1+ /lpf; Mucus,Urine Trace /lpf
[2018-06-06 01:43] LABS: Calcium 8.8 mg/dL (8.5-10.1)
--- NOTE | 2018-06-06 01:56 | Emergency Department Note ---
ED Disposition Clinical Impression: IDDM (insulin dependent diabetes mellitus), Tobacco use DKA (diabetic ketoacidoses) Qualifiers: Diabetes mellitus type: type 1 Diabetes mellitus complication detail: without coma Qualified Code(s): E10.10 - Type 1 diabetes mellitus with ketoacidosis without coma Disposition: Admitted as Observation Condition on Discharge: Serious Instructions: DI for Acute Abdomen Referrals: Iam Ibarra MD [Primary Care Provider] - - Critical Care Critical Care Time: No Attestation: On 06/06/18, the high probability of a clinically significant, sudden or life threatening deterioration of the following system(s) required my full and direct attention, intervention and personal management. The time I documented below is in addition to time spent performing reported procedures but includes the following listed in this critical care notation. Medical Decision Making - Medical Records Medical records reviewed: Yes: I reviewed the patient's medical records. - Dez Inquiry Pt receiving controlled substance: No Vital Signs: 06/06/18 00:45 Temperature 98.2 F Temperature Source Oral Pulse Rate [Right] 111 H Respiratory Rate 18 Blood Pressure [Right Arm] 156/87 H Blood Pressure Mean [Right Arm] 110 Blood Pressure Source [Right Arm] Automatic Cuff Blood Pressure Position [Right Arm] Sitting 02 Sat by Pulse Oximetry 99 Oxygen Delivery Method Room Air - Lab Data Lab results reviewed: Yes: I reviewed the patient's lab results. Lab Results 06/06/18 01:00: Urine Color Yellow, Urine Appearance Clear, Urine pH 5.5, Ur Specific [place] >= 1.030, Urine Protein Trace, Urine Glucose (UA) 2+, Urine Ketones 3+, Urine Blood Negative, Urine Nitrate Negative, Urine Bilirubin Negative, Urine Urobilinogen 0.2, Ur Leukocyte Esterase Negative, Urine WBC 3-5, Urine Bacteria 1+, Urine Mucus Trace 06/06/18 01:00: WBC 11.3 D, RBC 5.66, Hgb 16.7, Hct 48.3, MCV 85.3, MCH 29.6, MCHC 34.7, RDW 13.2, Plt Count 246, MPV 9.4, Neut % (Auto) 70.1, Lymph % (Auto) 23.7, [place] % (Auto) 3.5, Eos % (Auto) 2.1, Baso % (Auto) 0.6, Neut # (Auto) 8.0 H, Lymph # (Auto) 2.7, [place] # (Auto) 0.4, Eos # (Auto) 0.2, Baso # (Auto) 0.1 06/06/18 01:00: Sodium 134 L, Potassium 4.0 D, Chloride 98, Carbon Dioxide 11 L D, Anion Gap 29.0 H, BUN 14, Creatinine 1.03, Estimated Creat Clear 117, Es timated GFR 92, Est GFR ( Amer) 111, Glucose 336 H D, Calcium 8.8 D, Total Bilirubin 0.7, AST 10 L D, ALT 20, Alkaline Phosphatase 128 H, C-Reactive Protein 0.4, Total Protein 8.2, Albumin 4.3 D, Globulin 3.9 H, Albumin/Globulin Ratio 1.1, Amylase 108, Lipase 105 06/06/18 01:00: Lactate 1.0 06/06/18 01:00: Urine Opiates Screen Negative, Urine Methadone Screen Negative, Ur Barbituates Screen Negative, Ur Phencyclidine Scrn Negative, Ur Amphetamines Screen Negative, U Benzodiazepines Scrn Negative, Urine Cocaine Screen Negative, U Marijuana (THC) Screen Positive H 06/06/18 01:00: Acetone Level Moderate Result diagrams: 06/06/18 01:00 06/06/18 01:00 Orders (Tests/Meds): ED MEDICATIONS Generic Name Dose Route Start Last Admin Trade Name Freq PRN Reason Stop Dose Admin Sodium Chloride 1,000 mls @ 999 mls/hr 06/06/18 01:15 06/06/18 01:13 Sod Chlor 0.9% 1000ml Bag IV 06/06/18 02:15 999 mls/hr .Q1H1M JOE Administration Insulin Human Regular 100 unit 101 mls @ 4.04 mls/hr 06/06/18 02:00 / Sodium Chloride IV 07/06/18 01:59 .Q25H JOE Protocol 4 UNIT/HR Discontinued Medications Generic Name Dose Route Start Last Admin Trade Name Freq PRN Reason Stop Dose Admin Famotidine 20 mg 06/06/18 01:12 06/06/18 01:13 Pepcid 20mg/2ml Vial IV 06/06/18 01:13 20 mg ONCE ONE Administration Insulin Human Regular 5 unit 06/06/18 01:49 Humulin R Insulin 100 Units/Ml 10ml Vial IVP 06/06/18 01:50 ONCE ONE Ketorolac Tromethamine 30 mg 06/06/18 01:02 06/06/18 01:12 Toradol 30mg/Ml Vial IV 06/06/18 01:03 30 mg ONCE ONE Administration Metoclopramide HCl 10 mg 06/06/18 01:12 06/06/18 01:13 Reglan 10mg/2ml Vial IVP 06/06/18 01:13 10 mg ONCE ONE Administration Ondansetron HCl 4 mg 06/06/18 01:02 06/06/18 01:13 Zofran 4mg/2ml Vial IV 06/06/18 01:03 4 mg ONCE ONE Administration ORDERS Category Date Time Status Complete Blood Count Auto Diff Stat Lab 06/06/18 01:00 Results Erythrocyte Sedimentation Rate Stat Lab 06/06/18 01:00 Results Nausea/Vomiting/Diarrhea HPI - General Chief complaint: Abdominal Pain Stated complaint: Abdominal Pain Time Seen by Provider: 06/06/18 01:00 Mode of Arrival: Ambulatory Source of Information: Patient, Significant Other, Medical Record Limitations: No Limitations Description of Symptoms (Recalled from ER Triage Doc. by RN): Pt states he signed out AMA this AM and started to have upper ABD pain at 1700 tonight and wanted to get checked out - History of Present Illness HPI Narrative: pt with known iddm and left earlier ama and returns with vomiting and no diarrhea - insulin pump has been working MD complaint: nausea, vomiting, abdominal pain Onset (ago): day(s) Associated Abdominal Pain: Yes Location of pain: diffuse Severity: moderate Associated symptoms: denies other symptoms - Related Data Home Medications Medication Instructions Recorded Confirmed Insulin Lispro [Humalog] 0 unit SQ DIRECTED 10/23/17 06/05/18 insulin lispro (U- 100) 100 2.5 unit SQ Q1H ml 12/27/17 06/05/18 unit/mL subcutaneous cartridge Allergies Allergy/AdvReac Type Severity Reaction Status Date / Time No Known Allergies Allergy Verified 03/23/18 13:58 [facility] History - Hepatitis A Screen Drug use history?: No High risk sexual behaviors?: No History of sexually transmitted infection?: No Currently employed?: No Childcare worker?: No Do you have indoor plumbing?: Yes Do you have electricity?: Yes Attestation statement:: This patient has been screened for Hepatitis A risk factors. I have reviewed the patient's past medical history: Yes Medical History: Reports:: Diabetes Mellitus Type 1 Denies:: Cancer, Diabetes Mellitus Type 2, Internal Pacemaker, MRSA Laterality Cases: Bilateral: Tonsillectomy Other Surgeries: Yes: No Previous Surgery, Other. No: Pacemaker Amputation: No Fractures: Yes (right ankle) - Social History Smoking Status: Current every day smoker Tobacco Type: cigarettes # Packs/Day (cigarettes): 2 #Yrs smoked (if former smoker): 7 Alcohol Intake: never Alcohol Intake Frequency:: holidays/special occasions only Substance Use Type: marijuana Occupational Status: unemployed Housing: house Household Members: family - Psychiatric History Expresses thoughts of harming self/others: None Suicide Plan Description: No Plan Family Hx:: Cancer, Diabetes, Heart Attack, Hyperlipidemia, Hypertension, Stroke, Tuberculosis ROS Obtained: Yes All systems reviewed & no additional complaints - Constitutional Constitutional: Denies fever(s) - Eyes Eyes: Denies change in vision - ENT Ears, Nose, Mouth, and Throat: Denies sore throat - Cardiovascular Cardiovascular: Denies chest pain - Respiratory Respiratory: No cough - Gastrointestinal Gastrointestingal: Reports: as per HPI, abdominal pain, nausea, vomiting. Denies: diarrhea - Genitourinary Male Genitourinary: Denies hematuria - Musculoskeletal Musculoskeletal: Denies joint pain, Denies joint swelling - Integumentary/Breasts Skin/Breast: Denies rash - Neurologic Neurologic: Denies seizure-like activity Physical Exam - General General appearance: alert - Head Head exam: normocephalic - Eye Eye exam: Present: PERRL, EOMI. Absent: scleral icterus - ENT ENT exam: Present: mucous membranes dry - Neck Neck exam: Present: trachea midline - Respiratory Respiratory exam: Present: normal lung sounds bilaterally. Absent: respiratory distress - Cardiovascular Cardiovascular exam: Present: regular rate. Absent: systolic murmur - Abdominal Exam Abdominal exam: Present: soft - Extremities Exam Extremities exam: Present: full ROM - Neurological Exam Neurological exam: Present: alert, oriented X3, CN II-XII intact. Absent: motor sensory deficit - Psychiatric Psychiatric exam: Present: normal affect - Skin Skin exam: Absent: rash
[2018-06-06 02:48] LABS: Erythrocyte Sedimentation Rate 7 mm/hr (0-15)
[2018-06-06 07:15] LABS: Basophils # 0.1 K/mm3 (0-0.2); Basophils % 0.8 % (0.1-2.0); Eosinophils # 0.3 K/mm3 (0.0-0.4); Eosinophils % 2.5 % (0.1-12.0); Hematocrit 42.1 % (42.0-52.0); Lymphocytes # 2.7 K/mm3 (0.7-4.5); Lymphocytes % 26.5 % (10-50); Mean Corpuscular HGB Conc 34.8 g/dL (31.8-35.4); Mean Corpuscular Hemoglobin 29.3 pg (27.0-31.2); Mean Corpuscular Volume 84.4 fl (80-94); Mean Platelet Volume 9.4 fl (7.4-10.4); Monocytes # 0.5 K/mm3 (0.1-1.0); Monocytes % 4.7 % (1.7-9.3); Neutrophils # 6.8 K/mm3 (1.8-7.8); Neutrophils % 65.6 % (37.0-80.0); Platelet Count 205 K/mm3 (142-424); Red Blood Count 4.99 M/mm3 (4.60-6.20); Red Cell Distribution Width 13.1 % (11.5-17.5); White Blood Count 10.3 K/mm3 (4.5-13.0)
[2018-06-06 07:25] LABS: Anion Gap 22.8 mEq/L (5-15); Blood Urea Nitrogen 10 mg/dL (7-18); Carbon Dioxide 11 mmol/L (21.0-32.0); Chloride 108 mmol/L (98-107); Chol/HDL Ratio 4.6 (1-3.5); Cholesterol 115 mg/dL (140-200); Glucose 185 mg/dL (74-106); HDL Cholesterol 25 mg/dL (27-67); LDL Cholesterol 15 mg/dL (0-130); Potassium 3.8 mmoL/L (3.5-5.1); Sodium 138 mmol/L (136-145); Triglycerides 373 mg/dL (30-200); VLDL Cholesterol 75 mg/dL (0-40)
--- NOTE | 2018-06-06 07:29 | Pharmacy Consult Notes ---
[facility] Pharmacy VTE Monitoring - Patient Demographics Admission date: 06/06/18 Report Date: 06/06/18 Time: 07:29 Allergies/Adverse Reactions: Patient Allergies No Known Allergies Allergy (Verified 06/06/18 03:12) Height: 1.73 m Weight: 74.389 kg Patient Problems: Current Active Problems (Updated 06/06/18 @ 01:58 by Iam Ibarra MD) DKA (diabetic ketoacidoses) (Acute) IDDM (insulin dependent diabetes mellitus) (Acute) Tobacco use (Acute) - VTE Risk Labs: VTE Related Lab Results Hgb 16.7 g/dL (14.1-18.0) 06/06/18 01:00 Hct 42.1 % (42.0-52.0) 06/06/18 06:21 Plt Count 205 K/mm3 (142-424) 06/06/18 06:21 BUN 10 mg/dL (7-18) D 06/06/18 06:21 Creatinine 0.90 mg/dL (0.70-1.30) 06/06/18 06:21 Estimated Creat Clear 138 mL/min (50-200) 06/06/18 06:21 VTE Risk Level: Low Risk - Prophylaxis VTE Prophylaxis Ordered?: Yes Types of VTE Prophylaxis: TEDS Knee High Location of Applied Device: Bilateral Lower Extremeties - VTE Diagnosis Confirmed Treatment or plan recommended: Continue Current Treatment
[2018-06-06 07:47] LABS: Acetone, Serum (Rapid) Moderate (None Detect)
[2018-06-06 07:58] LABS: Hemoglobin 14.7 g/dL (14.1-18.0)
[2018-06-06 08:05] LABS: Calcium 7.9 mg/dL (8.5-10.1)
--- NOTE | 2018-06-06 08:52 | Progress Note ---
Internal Medicine - PN: Subj *Date: 06/06/18 *Time: 08:53 Interval history: 18 YOM with known iddm and left earlier ama and returns with vomiting and no diarrhea - insulin pump has been working Exam Vital signs and Labs for Last 24 Hours: Temp Pulse Resp BP Pulse Ox 98.2 F 100 H 16 160/78 H 99 06/06/18 02:50 06/06/18 04:00 06/06/18 02:50 06/06/18 02:50 06/06/18 00:45 Laboratory Results - last 24 hr 06/06/18 01:00: Urine Color Yellow, Urine Appearance Clear, Urine pH 5.5, Ur Specific [place] >= 1.030, Urine Protein Trace, Urine Glucose (UA) 2+, Urine Ketones 3+, Urine Blood Negative, Urine Nitrate Negative, Urine Bilirubin Negative, Urine Urobilinogen 0.2, Ur Leukocyte Esterase Negative, Urine WBC 3-5, Urine Bacteria 1+, Urine Mucus Trace 06/06/18 01:00: WBC 11.3 D, RBC 5.66, Hgb 16.7, Hct 48.3, MCV 85.3, MCH 29.6, MCHC 34.7, RDW 13.2, Plt Count 246, MPV 9.4, Neut % (Auto) 70.1, Lymph % (Auto) 23.7, [place] % (Auto) 3.5, Eos % (Auto) 2.1, Baso % (Auto) 0.6, Neut # (Auto) 8.0 H, Lymph # (Auto) 2.7, [place] # (Auto) 0.4, Eos # (Auto) 0.2, Baso # (Auto) 0.1, ESR 7 06/06/18 01:00: Sodium 134 L, Potassium 4.0 D, Chloride 98, Carbon Dioxide 11 L D, Anion Gap 29.0 H, BUN 14, Creatinine 1.03, Estimated Creat Clear 117, Estimated GFR 92, Est GFR ( Amer) 111, Glucose 336 H D, Calcium 8.8 D, Total Bilirubin 0.7, AST 10 L D, ALT 20, Alkaline Phosphatase 128 H, C-Reactive Protein 0.4, Total Protein 8.2, Albumin 4.3 D, Globulin 3.9 H, Albumin/Globulin Ratio 1.1, Amylase 108, Lipase 105 06/06/18 01:00: Lactate 1.0 06/06/18 01:00: Urine Opiates Screen Negative, Urine Methadone Screen Negative, Ur Barbituates Screen Negative, Ur Phencyclidine Scrn Negative, Ur Amphetamines Screen Negative, U Benzodiazepines Scrn Negative, Urine Cocaine Screen Negative, U Marijuana (THC) Screen Positive H 06/06/18 01:00: Acetone Level Moderate 06/06/18 03:16: POC Glucose 197 H 06/06/18 04:39: POC Glucose 180 H 06/06/18 06:20: POC Glucose 173 H 06/06/18 06:21: WBC 10.3, RBC 4.99, Hgb 14.7 D, Hct 42.1, MCV 84.4, MCH 29.3, MCHC 34.8, RDW 13.1, Plt Count 205, MPV 9.4, Neut % (Auto) 65.6, Lymph % (Auto) 26.5, [place] % (Auto) 4.7, Eos % (Auto) 2.5, Baso % (Auto) 0.8, Neut # (Auto) 6.8, Lymph # (Auto) 2.7, [place] # (Auto) 0.5, Eos # (Auto) 0.3, Baso # (Auto) 0.1 06/06/18 06:21: Sodium 138, Potassium 3.8, Chloride 108 H, Carbon Dioxide 11 L, Anion Gap 22.8 H, BUN 10 D, Creatinine 0.90, Estimated Creat Clear 138, Estimated GFR 108, Est GFR ( Amer) 130, Glucose 185 H D, Calcium 7.9 L D, Magnesium 1.8 D, Triglycerides 373 H, Cholesterol 115 L, LDL Cholesterol 15, VLDL Cholesterol 75 H, HDL Cholesterol 25 L, Cholesterol/HDL Ratio 4.6 H, Thor tone Level Moderate I & O for Last 24 hours: Intake & Output 06/03/18 06/04/18 06/05/18 06/06/18 23:59 23:59 23:59 23:59 Intake Total 2274 / 2274 Output Total 800 / 800 Balance 1474 / 1474 Weight 164 lb Narrative: 18 YOM in bed resting quietly, reports feeling better and denies needs at this time - Constitutional no acute distress - *Routine HEENT Exam Head: Present: normocephalic Eye: Present: EOMI, PERRL, normal accommodation ENT: Present: mucous membranes moist - *Routine Neck Exam Present: supple, full ROM - *Routine Respiratory Exam Present: CTA bilaterally - *Routine Cardiovascular Exam Present: RRR - *Routine Abdominal Exam Present: soft, normoactive bowel sounds - *Routine Extremities Exam Present: full ROM. Absent: cyanosis, clubbing, edema - Routine Back/Spine/Pelvis Exam Back/Spine: Present: full ROM Pelvis: Absent: SI joint tenderness, coccyx tenderness - *Routine Skin Exam Present: intact, warm. Absent: rash - *Routine Neurological Exam Present: alert, oriented X3, CN II-XII intact - Routine Psychiatric Exam Present: normal affect, normal thought process
--- NOTE | 2018-06-06 09:00 | History & Physical Report ---
*Admission Date: 06/06/18 *Chief complaint: DKA *History of present illness: Admitted 06/05: 18 YOM with known iddm,left earlier ama and returns with vomiting and no diarrhea - insulin pump has been working. Now resting quietly, denies concerns/needs at this time [facility] History I have reviewed the patient's past medical history: Yes Medical History: Reports:: Diabetes Mellitus Type 1 Denies:: Cancer, Diabetes Mellitus Type 2, Internal Pacemaker, MRSA *Have you ever received a pneumonia vaccine?: Yes *Have you received a flu vaccine this season?: Yes Laterality Cases: Bilateral: Tonsillectomy Other Surgeries: Yes: No Previous Surgery, Other. No: Pacemaker Amputation: No Fractures: Yes (right ankle) - *Social History Educational Level: Completed High School Smoking Status: Current every day smoker Tobacco Type: cigarettes # Packs/Day (cigarettes): 1 #Yrs smoked (if former smoker): 7 Alcohol Intake: never Alcohol Intake Frequency:: holidays/special occasions only Substance Use Type: marijuana *Occupational Status:: unemployed Housing: house Household Members: family *Travel in the last 8 weeks: None - Psychiatric History Expresses thoughts of harming self/others: None Suicide Plan Description: No Plan Family Hx:: Diabetes, Heart Attack, Hypertension Review of Systems - Review of Systems Review of systems:: unable to obtain, other, pertinent systems reviewed and negative unless documented below - Constitutional Denies body ache(s), Denies chills - Eyes Denies blind spots, Denies blurry vision - ENT Denies abnormal hearing - *Cardiovascular Denies chest pain, Denies shortness of breath - *Respiratory Denies chest congestion, Denies shortness of breath - *Gastrointestinal Denies abdominal pain, Denies coffee ground vomit - *Genitourinary Denies difficulty urinating, Denies painful urination - *Musculoskeletal Denies abnormal walking, Denies joint pain - *Neurologic Denies abnormal speech, Denies behavioral changes, Denies seizure-like activity - Psychiatric Denies anxiety, Denies hearing things others do not hear - Endocrine Denies cold intolerance, Denies heat intolerance - Hematologic/Lymphatic Denies easy bleeding, Denies easy bruising - Allergic/Immunologic Denies GI upset with certain foods, Denies lip swelling, Denies throat swelling Meds Home Medications Medication Instructions Recorded Confirmed Type insulin lispro (U- 100) 100 2.5 unit SQ Q1H ml 12/27/17 06/06/18 History unit/mL subcutaneous cartridge Allergies Allergy/AdvReac Type Severity Reaction Status Date / Time No Known Allergies Allergy Verified 06/06/18 03:12 Exam Vital signs and Labs for Last 24 Hours: Temp Pulse Resp BP Pulse Ox 98.2 F 100 H 16 160/78 H 99 06/06/18 02:50 06/06/18 04:00 06/06/18 02:50 06/06/18 02:50 06/06/18 00:45 Laboratory Results - last 24 hr 06/06/18 01:00: Urine Color Yellow, Urine Appearance Clear, Urine pH 5.5, Ur Specific [place] >= 1.030, Urine Protein Trace, Urine Glucose (UA) 2+, Urine Ketones 3+, Urine Blood Negative, Urine Nitrate Negative, Urine Bilirubin Negative, Urine Urobilinogen 0.2, Ur Leukocyte Esterase Negative, Urine WBC 3-5, Urine Bacteria 1+, Urine Mucus Trace 06/06/18 01:00: WBC 11.3 D, RBC 5.66, Hgb 16.7, Hct 48.3, MCV 85.3, MCH 29.6, MCHC 34.7, RDW 13.2, Plt Count 246, MPV 9.4, Neut % (Auto) 70.1, Lymph % (Auto) 23.7, [place] % (Auto) 3.5, Eos % (Auto) 2.1, Baso % (Auto) 0.6, Neut # (Auto) 8.0 H, Lymph # (Auto) 2.7, [place] # (Auto) 0.4, Eos # (Auto) 0.2, Baso # (Auto) 0.1, ESR 7 06/06/18 01:00: Sodium 134 L, Potassium 4.0 D, Chloride 98, Carbon Dioxide 11 L D, Anion Gap 29.0 H, BUN 14, Creatinine 1.03, Estimated Creat Clear 117, Estimated GFR 92, Est GFR ( Amer) 111, Glucose 336 H D, Calcium 8.8 D, Total Bilirubin 0.7, AST 10 L D, ALT 20, Alkaline Phosphatase 128 H, C-Reactive Protein 0.4, Total Protein 8.2, Albumin 4.3 D, Globulin 3.9 H, Albumin/Globulin Ratio 1.1, Amylase 108, Lipase 105 06/06/18 01:00: Lactate 1.0 06/06/18 01:00: Urine Opiates Screen Negative, Urine Methadone Screen Negative, Ur Barbituates Screen Negative, Ur Phencyclidine Scrn Negative, Ur Amphetamines Screen Negative, U Benzodiazepines Scrn Negative, Urine Cocaine Screen Negative, U Marijuana (THC) Screen Positive H 06/06/18 01:00: Acetone Level Moderate 06/06/18 03:16: POC Glucose 197 H 06/06/18 04:39: POC Glucose 180 H 06/06/18 06:20: POC Glucose 173 H 06/06/18 06:21: WBC 10.3, RBC 4.99, Hgb 14.7 D, Hct 42.1, MCV 84.4, MCH 29.3, MCHC 34.8, RDW 13.1, Plt Count 205, MPV 9.4, Neut % (Auto) 65.6, Lymph % (Auto) 26.5, [place] % (Auto) 4.7, Eos % (Auto) 2.5, Baso % (Auto) 0.8, Neut # (Auto) 6.8, Lymph # (Auto) 2.7, [place] # (Auto) 0.5, Eos # (Auto) 0.3, Baso # (Auto) 0.1 06/06/18 06:21: Sodium 138, Potassium 3.8, Chloride 108 H, Carbon Dioxide 11 L, Anion Gap 22.8 H, BUN 10 D, Creatinine 0.90, Estimated Creat Clear 138, Estimated GFR 108, Est GFR ( Amer) 130, Glucose 185 H D, Calcium 7.9 L D, Magnesium 1.8 D, Triglycerides 373 H, Cholesterol 115 L, LDL Cholesterol 15, VLDL Cholesterol 75 H, HDL Cholesterol 25 L, Cholesterol/HDL Ratio 4.6 H, Acetone Level Moderate I & O for Last 24 hours: Intake & Output 06/03/18 06/04/18 06/05/18 06/06/18 23:59 23:59 23:59 23:59 Intake Total 2274 / 2274 Output Total 800 / 800 Balance 1474 / 1474 Weight 164 lb - Constitutional no acute distress - *Routine HEENT Exam Head: Present: normocephalic, atraumatic Eye: Present: EOMI, PERRL, normal accommodation ENT: Present: mucous membranes moist - *Routine Neck Exam Present: supple, full ROM. Absent: lymphadenopathy - *Routine Respiratory Exam Present: CTA bilaterally. Absent: accessory muscle use - *Routine Cardiovascular Exam Present: RRR, Normal S1, Normal S2 - *Routine Abdominal Exam Present: soft, normoactive bowel sounds - *Routine Extremities Exam Present: full ROM, pulses intact - Routine Back/Spine/Pelvis Exam Back/Spine: Present: full ROM Pelvis: Absent: SI joint tenderness, coccyx tenderness - *Routine Skin Exam Present: intact. Absent: cyanosis - *Routine Neurological Exam Present: alert, oriented X3, CN II-XII intact - Routine Psychiatric Exam Present: normal affect, normal thought process Assessment and Plan (1) Non-compliance with treatment Current visit: Yes Status: Acute Category: Medical Code(s): Z91.19 - Patient's noncompliance with other medical treatment and regimen (2) DKA (diabetic ketoacidoses) Current visit: Yes Status: Acute Qualifiers: Diabetes mellitus type: type 1 Diabetes mellitus complication detail: without coma Qualified Code(s): E10.10 - Type 1 diabetes mellitus with ketoacidosis without coma Category: Medical Code(s): E13.10 - Other specified diabetes mellitus with ketoacidosis without coma (3) IDDM (insulin dependent diabetes mellitus) Current visit: Yes Status: Acute Category: Medical Code(s): E11.9 - Type 2 diabetes mellitus without complications; Z79.4 - [facility] (current) use of insulin - Assessment and plan all Dx Assessment and Plan for all problems:: Rounds with Dr. Ibarra and all orders per Dr. Ibarra
[2018-06-06 14:32] LABS: Anion Gap 15.9 mEq/L (5-15); Potassium 3.9 mmoL/L (3.5-5.1)
[2018-06-06 16:45] VITALS: BP 158/78
[2018-06-06 18:53] LABS: Anion Gap 14.3 mEq/L (5-15); Calcium 8.2 mg/dL (8.5-10.1); Potassium 3.3 mmoL/L (3.5-5.1)
--- NOTE | 2018-06-06 20:29 | Discharge Summary ---
General - General Admission date:: 06/06/18 Discharge date: 06/06/18 HPI HPI: Admitted 06/05: 18 YOM with known iddm,left earlier ama and returns with vomiting and no diarrhea - insulin pump has been working. Now resting quietly, denies concerns/needs at this time Hospital Course Hospital Course: pt slowly improved with ivf and iv insulin with dec serum acetone and able to livier diet - pt left ama at this time Objective Vital signs: Temp Pulse Resp BP Pulse Ox 98.6 F 90 18 158/78 H 100 06/06/18 16:00 06/06/18 16:12 06/06/18 16:00 06/06/18 16:00 06/06/18 16:00 no acute distress - *Routine HEENT Exam Head: Present: normocephalic Eye: Present: EOMI, PERRL ENT: Present: mucous membranes dry - *Routine Neck Exam Present: supple - *Routine Respiratory Exam Present: CTA bilaterally - *Routine Cardiovascular Exam Present: RRR - *Routine Abdominal Exam Present: soft - *Routine Extremities Exam Present: full ROM - *Routine Skin Exam Present: intact - *Routine Neurological Exam Present: alert, oriented X3, CN II-XII intact - Routine Psychiatric Exam Present: normal affect Results Labs on day of discharge: Labs from last 24 hours 06/06/18 06/06/18 06/06/18 18:30 18:30 15:41 WBC RBC Hgb Hct MCV MCH MCHC RDW Plt Count MPV Neut % (Auto) Lymph % (Auto) [place] % (Auto) Eos % (Auto) Baso % (Auto) Neut # (Auto) Lymph # (Auto) [place] # (Auto) Eos # (Auto) Baso # (Auto) ESR Sodium 139 Potassium 3.3 L Chloride 105 Carbon Dioxide 23 D Anion Gap 14.3 BUN 7 D Creatinine 1.05 Estimated Creat Clear 118 Estimated GFR 90 Est GFR ( Amer) 109 Glucose 226 H POC Glucose 189 H Lactate Calcium 8.2 L Magnesium Total Bilirubin AST ALT Alkaline Phosphatase C-Reactive Protein Total Protein Albumin Globulin Albumin/Globulin Ratio Triglycerides Cholesterol LDL Cholesterol VLDL Cholesterol HDL Cholesterol Cholesterol/HDL Ratio Amylase Lipase Urine Color Urine Appearance Urine pH Ur Specific [place] Urine Protein Urine Glucose (UA) Urine Ketones Urine Blood Urine Nitrate Urine Bilirubin Urine Urobilinogen Ur Leukocyte Esterase Urine WBC Urine Bacteria Urine Mucus Urine Opiates Screen Urine Methadone Screen Ur Barbituates Screen Ur Phencyclidine Scrn Ur Amphetamines Screen U Benzodiazepines Scrn Urine Cocaine Screen U Marijuana (THC) Screen Acetone Level Small 06/06/18 06/06/18 06/06/18 13:30 13:30 06:21 WBC RBC Hgb Hct MCV MCH MCHC RDW Plt Count MPV Neut % (Auto) Lymph % (Auto) [place] % (Auto) Eos % (Auto) Baso % (Auto) Neut # (Auto) Lymph # (Auto) [place] # (Auto) Eos # (Auto) Baso # (Auto) ESR Sodium 138 138 Potassium 3.9 3.8 Chloride 107 108 H Carbon Dioxide 19 L D 11 L Anion Gap 15.9 H 22.8 H BUN 10 10 D Creatinine 0.94 0.90 Estimated Creat Clear 132 138 Estimated GFR 102 108 Est GFR ( Amer) 124 130 Glucose 231 H D 185 H D POC Glucose Lactate Calcium 8.0 L 7.9 L D Magnesium 1.8 D Total Bilirubin AST ALT Alkaline Phosphatase C-Reactive Protein Total Protein Albumin Globulin Albumin/Globulin Ratio Triglycerides 373 H Cholesterol 115 L LDL Cholesterol 15 VLDL Cholesterol 75 H HDL Cholesterol 25 L Cholesterol/HDL Ratio 4.6 H Amylase Lipase Urine Color Urine Appearance Urine pH Ur Specific [place] Urine Protein Urine Glucose (UA) Urine Ketones Urine Blood Urine Nitrate Urine Bilirubin Urine Urobilinogen Ur Leukocyte Esterase Urine WBC Urine Bacteria Urine Mucus Urine Opiates Screen Urine Methadone Screen Ur Barbituates Screen Ur Phencyclidine Scrn Ur Amphetamines Screen U Benzodiazepines Scrn Urine Cocaine Screen U Marijuana (THC) Screen Acetone Level Moderate Moderate 06/06/18 06/06/18 06/06/18 06:21 06:20 04:39 WBC 10.3 RBC 4.99 Hgb 14.7 D Hct 42.1 MCV 84.4 MCH 29.3 MCHC 34.8 RDW 13.1 Plt Count 205 MPV 9.4 Neut % (Auto) 65.6 Lymph % (Auto) 26.5 [place] % (Auto) 4.7 Eos % (Auto) 2.5 Baso % (Auto) 0.8 Neut # (Auto) 6.8 Lymph # (Auto) 2.7 [place] # (Auto) 0.5 Eos # (Auto) 0.3 Baso # (Auto) 0.1 ESR Sodium Potassium Chloride Carbon Dioxide Anion Gap BUN Creatinine Estimated Creat Clear Estimated GFR Est GFR ( Amer) Glucose POC Glucose 173 H 180 H Lactate Calcium Magnesium Total Bilirubin AST ALT Alkaline Phosphatase C-Reactive Protein Total Protein Albumin Globulin Albumin/Globulin Ratio Triglycerides Cholesterol LDL Cholesterol VLDL Cholesterol HDL Cholesterol Cholesterol/HDL Ratio Amylase Lipase Urine Color Urine Appearance Urine pH Ur Specific [place] Urine Protein Urine Glucose (UA) Urine Ketones Urine Blood Urine Nitrate Urine Bilirubin Urine Urobilinogen Ur Leukocyte Esterase Urine WBC Urine Bacteria Urine Mucus Urine Opiates Screen Urine Methadone Screen Ur Barbituates Screen Ur Phencyclidine Scrn Ur Amphetamines Screen U Benzodiazepines Scrn Urine Cocaine Screen U Marijuana (THC) Screen Acetone Level 06/06/18 06/06/18 06/06/18 03:16 01:00 01:00 WBC RBC Hgb Hct MCV MCH MCHC RDW Plt Count MPV Neut % (Auto) Lymph % (Auto) [place] % (Auto) Eos % (Auto) Baso % (Auto) Neut # (Auto) Lymph # (Auto) [place] # (Auto) Eos # (Auto) Baso # (Auto) ESR Sodium Potassium Chloride Carbon Dioxide Anion Gap BUN Creatinine Estimated Creat Clear Estimated GFR Est GFR ( Amer) Glucose POC Glucose 197 H Lactate Calcium Magnesium Total Bilirubin AST ALT Alkaline Phosphatase C-Reactive Protein Total Protein Albumin Globulin Albumin/Globulin Ratio Triglycerides Cholesterol LDL Cholesterol VLDL Cholesterol HDL Cholesterol Cholesterol/HDL Ratio Amylase Lipase Urine Color Urine Appearance Urine pH Ur Specific [place] Urine Protein Urine Glucose (UA) Urine Ketones Urine Blood Urine Nitrate Urine Bilirubin Urine Urobilinogen Ur Leukocyte Esterase Urine WBC Urine Bacteria Urine Mucus Urine Opiates Screen Negative Urine Methadone Screen Negative Ur Barbituates Screen Negative Ur Phencyclidine Scrn Negative Ur Amphetamines Screen Negative U Benzodiazepines Scrn Negative Urine Cocaine Screen Negative U Marijuana (THC) Screen Positive H Acetone Level Moderate 06/06/18 06/06/18 06/06/18 01:00 01:00 01:00 WBC 11.3 D RBC 5.66 Hgb 16.7 Hct 48.3 MCV 85.3 MCH 29.6 MCHC 34.7 RDW 13.2 Plt Count 246 MPV 9.4 Neut % (Auto) 70.1 Lymph % (Auto) 23.7 [place] % (Auto) 3.5 Eos % (Auto) 2.1 Baso % (Auto) 0.6 Neut # (Auto) 8.0 H Lymph # (Auto) 2.7 [place] # (Auto) 0.4 Eos # (Auto) 0.2 Baso # (Auto) 0.1 ESR 7 Sodium 134 L Potassium 4.0 D Chloride 98 Carbon Dioxide 11 L D Anion Gap 29.0 H BUN 14 Creatinine 1.03 Estimated Creat Clear 117 Estimated GFR 92 Est GFR ( Amer) 111 Glucose 336 H D POC Glucose Lactate 1.0 Calcium 8.8 D Magnesium Total Bilirubin 0.7 AST 10 L D ALT 20 Alkaline Phosphatase 128 H C-Reactive Protein 0.4 Total Protein 8.2 Albumin 4.3 D Globulin 3.9 H Albumin/Globulin Ratio 1.1 Triglycerides Cholesterol LDL Cholesterol VLDL Cholesterol HDL Cholesterol Cholesterol/HDL Ratio Amylase 108 Lipase 105 Urine Color Urine Appearance Urine pH Ur Specific [place] Urine Protein Urine Glucose (UA) Urine Ketones Urine Blood Urine Nitrate Urine Bilirubin Urine Urobilinogen Ur Leukocyte Esterase Urine WBC Urine Bacteria Urine Mucus Urine Opiates Screen Urine Methadone Screen Ur Barbituates Screen Ur Phencyclidine Scrn Ur Amphetamines Screen U Benzodiazepines Scrn Urine Cocaine Screen U Marijuana (THC) Screen Acetone Level 06/06/18 01:00 WBC RBC Hgb Hct MCV MCH MCHC RDW Plt Count MPV Neut % (Auto) Lymph % (Auto) [place] % (Auto) Eos % (Auto) Baso % (Auto) Neut # (Auto) Lymph # (Auto) [place] # (Auto) Eos # (Auto) Baso # (Auto) ESR Sodium Potassium Chloride Carbon Dioxide Anion Gap BUN Creatinine Estimated Creat Clear Estimated GFR Est GFR ( Amer) Glucose POC Glucose Lactate Calcium Magnesium Total Bilirubin AST ALT Alkaline Phosphatase C-Reactive Protein Total Protein Albumin Globulin Albumin/Globulin Ratio Triglycerides Cholesterol LDL Cholesterol VLDL Cholesterol HDL Cholesterol Cholesterol/HDL Ratio Amylase Lipase Urine Color Yellow Urine Appearance Clear Urine pH 5.5 Ur Specific [place] >= 1.030 Urine Protein Trace Urine Glucose (UA) 2+ Urine Ketones 3+ Urine Blood Negative Urine Nitrate Negative Urine Bilirubin Negative Urine Urobilinogen 0.2 Ur Leukocyte Esterase Negative Urine WBC 3-5 Urine Bacteria 1+ Urine Mucus Trace Urine Opiates Screen Urine Methadone Screen Ur Barbituates Screen Ur Phencyclidine Scrn Ur Amphetamines Screen U Benzodiazepines Scrn Urine Cocaine Screen U Marijuana (THC) Screen Acetone Level DS: Diagnosis - Discharge Diagnosis (1) Non-compliance with treatment Status: Acute (2) DKA (diabetic ketoacidoses) Status: Acute (3) IDDM (insulin dependent diabetes mellitus) Status: Acute (4) Tobacco use Status: Acute Discharge Plan - Patient Discharge Instructions ACTIVITY: Continue current activity DIET: continue same diet Patient Instructions: Cigarette Addiction (Alternative Therapy), Type 1 Diabetes, Nicotine Addiction, DI for Diabetes Type 1 -- Adult, Diabetic Ketoacidosis, DI for Diabetic Ketoacidosis, How to Quit Tobacco Products - Follow up Plan Disposition: Left Against Medical Advice Home Medications: Home Medications Medication Instructions Recorded Confirmed Type insulin lispro (U- 100) 100 2.5 unit SQ Q1H ml 12/27/17 06/06/18 History unit/mL subcutaneous cartridge Prescriptions/Medication Reconciliation: Continued insulin lispro (U- 100) 100 unit/mL subcutaneous cartridge 2.5 unit SQ Q1H ml
== END 2018-06-06 19:35 | disposition left against medical advice (07) | DRG 639 ==
LOC: ER 00:37 → ICU 01:53 → INTOOBSV 02:50 → ICU 02:56
PROVIDERS: ADMIT Emergency Medicine; ATTEND Emergency Medicine
CPT/HCPCS: 36415; 80048; 80053; 80061; 80305; 81001; 82009; 82150; 82962; 83605; 83690; 83735; 85025; 85651; 86140; 96365; 96366; 96375; 99284; G0378; J2405

== ENCOUNTER 2018-09-11 23:52 | Inpatient (IN) ==
[2018-09-12 00:21] LABS: Microscopic, Urine URINE MICROSCOPIC (MICROSCOPIC)
[2018-09-12 00:24] LABS: Basophils # 0.1 K/mm3 (0-0.2); Basophils % 0.4 % (0.1-2.0); Eosinophils # 0.1 K/mm3 (0.0-0.4); Eosinophils % 0.8 % (0.1-12.0); Hematocrit 55.2 % (42.0-52.0); Lymphocytes # 2.7 K/mm3 (0.7-4.5); Lymphocytes % 16.2 % (10-50); Mean Corpuscular HGB Conc 33.7 g/dL (31.8-35.4); Mean Corpuscular Volume 91.1 fl (80-94); Mean Platelet Volume 8.7 fl (7.4-10.4); Monocytes # 0.9 K/mm3 (0.1-1.0); Monocytes % 5.4 % (1.7-9.3); Neutrophils # 12.9 K/mm3 (1.8-7.8); Neutrophils % 77.3 % (37.0-80.0); Platelet Count 335 K/mm3 (142-424); Red Blood Count 6.06 M/mm3 (4.60-6.20); White Blood Count 16.7 K/mm3 (4.5-13.0)
[2018-09-12 00:30] LABS: Hemoglobin 18.8 g/dL (14.1-18.0)
[2018-09-12 00:34] LABS: Appearance,Urine CLEAR (Clear); Blood, Urine TRACE-I (Negative); Color,Urine YELLOW (Yellow); Glucose,Urine (UA) 2+ (Negative); Ketones,Urine 3+ (Negative); Leukocyte Esterase,Urine Negative (Negative); PH,Urine 5.5 (5.0-8.5); Protein,Urine 1+ (Negative); Specific Gravity, Urine >= 1.030 (1.005-1.030); Urobilinogen,Urine 0.2 EU/dl (0.2)
[2018-09-12 00:35] LABS: Albumin Level 4.5 gm/dL (3.4-5.0); Albumin/Globulin Ratio 1.1 (1.1-1.8); Anion Gap 31.1 mEq/L (5-15); Calcium 8.7 mg/dL (8.5-10.1); Globulin 4.1 gm/dl (1.3-3.2); Total Protein,Serum 8.6 gm/dL (6.4-8.2)
[2018-09-12 00:36] LABS: Bilirubin,Urine Negative (Negative)
[2018-09-12 00:52] LABS: Lymphocytes % 14 % (10-50); Neutrophils % 86 % (42-76); Total Cells Counted 100
[2018-09-12 00:53] LABS: Anisocytosis 1+; Bacteria,Urine 1+ /lpf; RBC,Urine Occasional #/hpf (0-3); WBC,Urine Occasional #/hpf (0-3)
--- NOTE | 2018-09-12 01:07 | Emergency Department Note ---
ED Disposition Clinical Impression: IDDM (insulin dependent diabetes mellitus), Tobacco use DKA (diabetic ketoacidoses) Qualifiers: Diabetes mellitus type: type 1 Diabetes mellitus complication detail: without coma Qualified Code(s): E10.10 - Type 1 diabetes mellitus with ketoacidosis without coma Disposition: Admitted as Observation Condition on Discharge: Serious - Critical Care Critical Care Time: No Attestation: On 09/11/18, the high probability of a clinically significant, sudden or life threatening deterioration of the following system(s) required my full and direct attention, intervention and personal management. The time I documented below is in addition to time spent performing reported procedures but includes the following listed in this critical care notation. Medical Decision Making - Medical Records Medical records reviewed: Yes: I reviewed the patient's medical records. - Dez Inquiry Pt receiving controlled substance: No Vital Signs: 09/11/18 23:56 Temperature 97.9 F Temperature Source Oral Pulse Rate [Right Brachial] 116 H Respiratory Rate 20 Blood Pressure [Right Arm] 167/76 H Blood Pressure Mean [Right Arm] 106 Blood Pressure Source [Right Arm] Automatic Cuff Blood Pressure Position [Right Arm] Sitting 02 Sat by Pulse Oximetry 99 Oxygen Delivery Method Room Air - Lab Data Lab results reviewed: Yes: I reviewed the patient's lab results. Lab Results 09/12/18 00:10: Urine Color Yellow, Urine Appearance Clear, Urine pH 5.5, Ur Specific [place] >= 1.030, Urine Protein 1+, Urine Glucose (UA) 2+, Urine Ketones 3+, Urine Blood Trace-i, Urine Nitrate Negative, Urine Bilirubin Negative, Urine Urobilinogen 0.2, Ur Leukocyte Esterase Negative, Urine RBC Occasional, Urine WBC Occasional, Ur Squamous Epith Cells 3-5, Urine Bacteria 1+ 09/12/18 00:10: WBC 16.7 H, RBC 6.06, Hgb 18.8 H*, Hct 55.2 H, MCV 91.1, MCH 30.7, MCHC 33.7, RDW 14.0, Plt Count 335, MPV 8.7, Neut % (Auto) 77.3, Lymph % (Auto) 16.2, [place] % (Auto) 5.4, Eos % (Auto) 0.8, Baso % (Auto) 0.4, Neut # (Auto) 12.9 H, Lymph # (Auto) 2.7, [place] # (Auto) 0.9, Eos # (Auto) 0.1, Baso # (Auto) 0.1, Total Counted 100, Neutrophils % (Manual) 86 H, Lymphocytes % (Manual) 14, Platelet Estimate Normal, RBC Morphology Not Reportable, Anisocytosis 1+ 09/12/18 00:10: Sodium 136, Potassium 4.1, Chloride 98, Carbon Dioxide 11 L, Anion Gap 31.1 H, BUN 12, Creatinine 1.27, Estimated Creat Clear 87, Estimated GFR 72, Est GFR ( Amer) 87, Glucose 289 H, Calcium 8.7, Total Bilirubin 1.0, AST 9 L, ALT 24, Alkaline Phosphatase 135 H, Total Protein 8.6 H, Albumin 4.5, Globulin 4.1 H, Albumin/Globulin Ratio 1.1 09/12/18 00:10: Acetone Level Moderate 09/12/18 00:10: Lactate 1.2 Result diagrams: 09/12/18 00:10 09/12/18 00:10 Orders (Tests/Meds): ED MEDICATIONS Generic Name Dose Route Start Last Admin Trade Name Freq PRN Reason Stop Dose Admin Sodium Chloride 1,000 mls @ 999 mls/hr 09/12/18 00:15 09/12/18 00:23 Sod Chlor 0.9% 1000ml Bag IV 09/12/18 01:15 999 mls/hr .Q1H1M JOE Administration Sodium Chloride 1,000 mls @ 999 mls/hr 09/12/18 00:45 09/12/18 00:38 Sod Chlor 0.9% 1000ml Bag IV 09/12/18 01:45 999 mls/hr .Q1H1M JOE Administration Insulin Human Regular 100 unit 101 mls @ 3.03 mls/hr 09/12/18 00:52 09/12/18 00:55 / Sodium Chloride IV 10/12/18 00:51 3.03 mls/hr .Q25H JOE Administration Protocol 3 UNIT/HR Discontinued Medications Generic Name Dose Route Start Last Admin Trade Name Freq PRN Reason Stop Dose Admin Ketorolac Tromethamine 30 mg 09/12/18 00:07 09/12/18 00:23 Toradol 30mg/Ml Vial IV 09/12/18 00:08 30 mg ONCE ONE Administration Ondansetron HCl 4 mg 09/12/18 00:07 09/12/18 00:23 Zofran 4mg/2ml Vial IV 09/12/18 00:08 4 mg ONCE ONE Administration ORDERS Category Date Time Status CRP [C-Reactive Protein] Stat Lab 09/12/18 00:10 Received Erythrocyte Sedimentation Rate Stat Lab 09/12/18 00:10 Received Blood Culture Stat Micro 09/12/18 00:10 Received Nausea/Vomiting/Diarrhea HPI - General Chief complaint: Nausea/Vomiting/Diarrhea Stated complaint: Vomiting,leg cramps Time Seen by Provider: 09/12/18 00:00 Mode of Arrival: Ambulatory Source of Information: Patient, Relative, Medical Record Limitations: No Limitations Description of Symptoms (Recalled from ER Triage Doc. by RN): Pt c/o jovel, abd pain, vomiting, and leg cramps that started today. He states he thinks he is in DKA. - History of Present Illness HPI Narrative: iddm pt with nausea and vomiting and feels achey- MD complaint: nausea, vomiting, abdominal pain Onset (ago): day(s) Associated Abdominal Pain: Yes Location of pain: diffuse Severity: moderate Quality: cramping Consistency: colicky Associated symptoms: denies other symptoms - Related Data Home Medications Medication Instructions Recorded Confirmed insulin lispro (U-100) 100 unit/mL 2.5 unit SQ Q1H ml 12/27/17 09/12/18 subcutaneous cartridge Allergies Allergy/AdvReac Type Severity Reaction Status Date / Time No Known Allergies Allergy Verified 09/12/18 00:11 [facility] History - Hepatitis A Screen Drug use history?: No High risk sexual behaviors?: No History of sexually transmitted infection?: No Currently employed?: No Childcare worker?: No Do you have indoor plumbing?: Yes Do you have electricity?: Yes Attestation statement:: This patient has been screened for Hepatitis A risk factors. I have reviewed the patient's past medical history: Yes Medical History: Reports:: Diabetes Mellitus Type 1 Denies:: Cancer, Diabetes Mellitus Type 2, Internal Pacemaker, MRSA Laterality Cases: Bilateral: Tonsillectomy Other Surgeries: Yes: No Previous Surgery, Other. No: Pacemaker Amputation: No Fractures: Yes (right ankle) - Social History Smoking Status: Current every day smoker Tobacco Type: cigarettes # Packs/Day (cigarettes): 1 #Yrs smoked (if former smoker): 7 Alcohol Intake: never Alcohol Intake Frequency:: holidays/special occasions only Substance Use Type: marijuana Occupational Status: employed Housing: house Household Members: family Family Hx:: Diabetes, Heart Attack, Hypertension ROS Obtained: Yes All systems reviewed & no additional complaints - Constitutional Constitutional: Denies fever(s) - Eyes Eyes: Denies change in vision - ENT Ears, Nose, Mouth, and Throat: Denies sore throat - Cardiovascular Cardiovascular: Denies chest pain - Respiratory Respiratory: No cough - Gastrointestinal Gastrointestingal: Denies: abdominal pain - Genitourinary Male Genitourinary: Denies hematuria - Musculoskeletal Musculoskeletal: Denies joint pain - Integumentary/Breasts Skin/Breast: Denies rash - Neurologic Neurologic: Denies seizure-like activity Physical Exam - General General appearance: alert - Head Head exam: normocephalic - Eye Eye exam: Present: PERRL, EOMI. Absent: scleral icterus - ENT ENT exam: Present: mucous membranes dry - Neck Neck exam: Present: trachea midline - Respiratory Respiratory exam: Absent: respiratory distress - Cardiovascular Cardiovascular exam: Present: regular rate. Absent: systolic murmur - Abdominal Exam Abdominal exam: Present: soft - Extremities Exam Extremities exam: Present: full ROM - Neurological Exam Neurological exam: Present: alert, oriented X3, CN II-XII intact - Psychiatric Psychiatric exam: Present: normal affect - Skin Skin exam: Absent: rash
[2018-09-12 05:56] LABS: Basophils # 0.1 K/mm3 (0-0.2); Basophils % 0.4 % (0.1-2.0); Eosinophils # 0.1 K/mm3 (0.0-0.4); Eosinophils % 0.4 % (0.1-12.0); Hematocrit 44.5 % (42.0-52.0); Lymphocytes # 3.7 K/mm3 (0.7-4.5); Lymphocytes % 20.9 % (10-50); Mean Corpuscular HGB Conc 33.8 g/dL (31.8-35.4); Mean Corpuscular Volume 88.8 fl (80-94); Mean Platelet Volume 8.5 fl (7.4-10.4); Monocytes # 1.2 K/mm3 (0.1-1.0); Monocytes % 6.6 % (1.7-9.3); Neutrophils # 12.6 K/mm3 (1.8-7.8); Neutrophils % 71.7 % (37.0-80.0); Platelet Count 290 K/mm3 (142-424); Red Blood Count 5.01 M/mm3 (4.60-6.20); Red Cell Distribution Width 13.8 % (11.5-17.5); White Blood Count 17.6 K/mm3 (4.5-13.0)
[2018-09-12 06:00] LABS: Acetone, Serum (Rapid) Moderate (None Detect)
[2018-09-12 06:04] LABS: Anion Gap 23.4 mEq/L (5-15); Blood Urea Nitrogen 9 mg/dL (7-18); Carbon Dioxide 12 mmol/L (21.0-32.0); Chloride 105 mmol/L (98-107); Glucose 172 mg/dL (74-106); Sodium 137 mmol/L (136-145)
[2018-09-12 06:06] LABS: Hemoglobin 15.3 g/dL (14.1-18.0)
[2018-09-12 06:38] LABS: Calcium 7.6 mg/dL (8.5-10.1)
--- NOTE | 2018-09-12 07:33 | Pharmacy Consult Notes ---
[facility] Pharmacy VTE Monitoring - Patient Demographics Admission date: 09/12/18 Report Date: 09/12/18 Time: 07:33 Allergies/Adverse Reactions: Patient Allergies No Known Allergies Allergy (Verified 09/12/18 02:07) Height: 1.73 m Weight: 66.224 kg Patient Problems: Current Active Problems DKA (diabetic ketoacidoses) (Acute) IDDM (insulin dependent diabetes mellitus) (Acute) Tobacco use (Acute) - VTE Risk Labs: VTE Related Lab Results Hgb 15.3 g/dL (14.1-18.0) D 09/12/18 05:30 Hct 44.5 % (42.0-52.0) 09/12/18 05:30 Plt Count 290 K/mm3 (142-424) 09/12/18 05:30 BUN 9 mg/dL (7-18) 09/12/18 05:30 Creatinine 0.87 mg/dL (0.70-1.30) D 09/12/18 05:30 Estimated Creat Clear 127 mL/min (50-200) 09/12/18 05:30 Was VTE Risk Assessment Performed: Yes VTE Score: 1 VTE Risk Level: Very Low Risk - Prophylaxis VTE Prophylaxis Ordered?: Yes Types of VTE Prophylaxis: TEDS Knee High Location of Applied Device: Bilateral Lower Extremeties - VTE Diagnosis Confirmed Treatment or plan recommended: Continue Current Treatment
--- NOTE | 2018-09-12 10:42 | History & Physical Report ---
*Admission Date: 09/12/18 *Chief complaint: vomiting *History of present illness: this wm with known iddm presented to the ed with nausea and vomiting with crampy abd pain - he was found to have dka and was admitted with ivf and iv insulin - [facility] History I have reviewed the patient's past medical history: Yes Medical History: Reports:: Diabetes Mellitus Type 1 Denies:: Cancer, Diabetes Mellitus Type 2, Internal Pacemaker, MRSA *Have you ever received a pneumonia vaccine?: No *Have you received a flu vaccine this season?: Yes Laterality Cases: Bilateral: Tonsillectomy Other Surgeries: Yes: No Previous Surgery, Other. No: Pacemaker Amputation: No Fractures: Yes (right ankle) - *Social History Educational Level: Completed High School Smoking Status: Current every day smoker Tobacco Type: cigarettes # Packs/Day (cigarettes): 1 #Yrs smoked (if former smoker): 7 Alcohol Intake: never Alcohol Intake Frequency:: holidays/special occasions only Substance Use Type: marijuana *Occupational Status:: employed Housing: house Household Members: family *Travel in the last 8 weeks: None Family Hx:: Diabetes, Heart Attack, Hypertension Review of Systems - Review of Systems Review of systems:: pertinent systems reviewed and negative unless documented below - Constitutional Reports malaise - Eyes Denies change in vision - ENT Denies sore throat - *Cardiovascular Denies chest pain - *Respiratory Denies cough - *Gastrointestinal Denies abdominal pain - *Genitourinary Denies blood in urine - *Musculoskeletal Denies joint pain - Integumentary/Breasts Denies rash - *Neurologic Denies seizure-like activity - Psychiatric Denies anxiety Meds Home Medications Medication Instructions Recorded Confirmed Type insulin lispro (U-100) 100 unit/mL 2.5 unit SQ Q1H ml 12/27/17 09/12/18 History subcutaneous cartridge Allergies Allergy/AdvReac Type Severity Reaction Status Date / Time No Known Allergies Allergy Verified 09/12/18 02:07 Exam Vital signs and Labs for Last 24 Hours: Temp Pulse Resp BP Pulse Ox 98.3 F 79 18 107/63 L 100 09/12/18 07:47 09/12/18 10:00 09/12/18 10:00 09/12/18 10:00 09/12/18 10:00 Laboratory Results - last 24 hr 09/12/18 00:10: Urine Color Yellow, Urine Appearance Clear, Urine pH 5.5, Ur S pecific [place] >= 1.030, Urine Protein 1+, Urine Glucose (UA) 2+, Urine Ketones 3+, Urine Blood Trace-i, Urine Nitrate Negative, Urine Bilirubin Negative, Urine Urobilinogen 0.2, Ur Leukocyte Esterase Negative, Urine RBC Occasional, Urine WBC Occasional, Ur Squamous Epith Cells 3-5, Urine Bacteria 1+ 09/12/18 00:10: WBC 16.7 H, RBC 6.06, Hgb 18.8 H*, Hct 55.2 H, MCV 91.1, MCH 30.7, MCHC 33.7, RDW 14.0, Plt Count 335, MPV 8.7, Neut % (Auto) 77.3, Lymph % (Auto) 16.2, [place] % (Auto) 5.4, Eos % (Auto) 0.8, Baso % (Auto) 0.4, Neut # (Auto) 12.9 H, Lymph # (Auto) 2.7, [place] # (Auto) 0.9, Eos # (Auto) 0.1, Baso # (Auto) 0.1, Total Counted 100, Neutrophils % (Manual) 86 H, Lymphocytes % (Manual) 14, Platelet Estimate Normal, RBC Morphology Not Reportable, Anisocytosis 1+ 09/12/18 00:10: Sodium 136, Potassium 4.1, Chloride 98, Carbon Dioxide 11 L, Anion Gap 31.1 H, BUN 12, Creatinine 1.27, Estimated Creat Clear 87, Estimated GFR 72, Est GFR ( Amer) 87, Glucose 289 H, Calcium 8.7, Total Bilirubin 1.0, AST 9 L, ALT 24, Alkaline Phosphatase 135 H, Total Protein 8.6 H, Albumin 4.5, Globulin 4.1 H, Albumin/Globulin Ratio 1.1 09/12/18 00:10: Acetone Level Moderate 09/12/18 00:10: Lactate 1.2 09/12/18 00:10: ESR 1 09/12/18 00:10: C-Reactive Protein < 0.2 09/12/18 02:05: POC Glucose 198 H 09/12/18 03:00: POC Glucose 153 H 09/12/18 03:55: POC Glucose 169 H 09/12/18 04:55: POC Glucose 138 H 09/12/18 05:30: WBC 17.6 H, RBC 5.01, Hgb 15.3 D, Hct 44.5, MCV 88.8, MCH 30.1, MCHC 33.8, RDW 13.8, Plt Count 290, MPV 8.5, Neut % (Auto) 71.7, Lymph % (Auto) 20.9, [place] % (Auto) 6.6, Eos % (Auto) 0.4, Baso % (Auto) 0.4, Neut # (Auto) 12.6 H, Lymph # (Auto) 3.7, [place] # (Auto) 1.2 H, Eos # (Auto) 0.1, Baso # (Auto) 0.1 09/12/18 05:30: Sodium 137, Potassium 3.4 L, Chloride 105, Carbon Dioxide 12 L, Anion Gap 23.4 H, BUN 9, Creatinine 0.87 D, Estimated Creat Clear 127, Estimated GFR 112, Est GFR ( Amer) 135 D, Glucose 172 H D, Calcium 7.6 L D, Magnesium 1.5, Acetone Level Moderate 09/12/18 05:55: POC Glucose 173 H 09/12/18 06:49: POC Glucose 188 H 09/12/18 08:17: POC Glucose 206 H 09/12/18 10:06: POC Glucose 242 H I & O for Last 24 hours: Intake & Output 09/09/18 09/10/18 09/11/18 09/12/18 11:59 11:59 11:59 11:59 Intake Total 1705 / 1705 Output Total 1825 / 1825 Balance -120 / -120 Weight 146 lb - Constitutional no acute distress, thin - *Routine HEENT Exam Head: Present: normocephalic Eye: Present: EOMI, PERRL ENT: Present: mucous membranes dry - *Routine Neck Exam Present: supple - *Routine Respiratory Exam Present: CTA bilaterally - *Routine Cardiovascular Exam Present: RRR. Absent: murmur - *Routine Abdominal Exam Present: soft - *Routine Extremities Exam Present: full ROM - *Routine Skin Exam Present: intact - *Routine Neurological Exam Present: alert, oriented X3, CN II-XII intact - Routine Psychiatric Exam Present: normal affect Assessment and Plan (1) DKA (diabetic ketoacidoses) Current visit: Yes Status: Acute Qualifiers: Diabetes mellitus type: type 1 Diabetes mellitus complication detail: without coma Qualified Code(s): E10.10 - Type 1 diabetes mellitus with ketoacidosis without coma Category: Medical Code(s): E13.10 - Other specified diabetes mellitus with ketoacidosis without coma (2) IDDM (insulin dependent diabetes mellitus) Current visit: Yes Status: Acute Category: Medical Code(s): E11.9 - Type 2 diabetes mellitus without complications; Z79.4 - alf (current) use of insulin (3) Tobacco use Current visit: Yes Status: Acute Category: Medical Code(s): Z72.0 - Tobacco use
[2018-09-12 10:59] LABS: Anion Gap 20.6 mEq/L (5-15); Calcium 7.8 mg/dL (8.5-10.1)
[2018-09-12 14:43] LABS: Anion Gap 18.8 mEq/L (5-15); Calcium 7.6 mg/dL (8.5-10.1)
[2018-09-12 17:53] LABS: Anion Gap 20.1 mEq/L (5-15); Blood Urea Nitrogen 9 mg/dL (7-18); Calcium 7.9 mg/dL (8.5-10.1); Carbon Dioxide 21 mmol/L (21.0-32.0); Chloride 104 mmol/L (98-107); Glucose 108 mg/dL (74-106); Sodium 142 mmol/L (136-145)
[2018-09-12 17:56] LABS: Acetone, Serum (Rapid) Small (None Detect)
--- NOTE | 2018-09-12 20:41 | Discharge Summary ---
General - General Admission date:: 09/12/18 Discharge date: 09/12/18 HPI HPI: this wm with known iddm presented to the ed with nausea and vomiting with crampy abd pain - he was found to have dka and was admitted with ivf and iv insulin - Hospital Course Hospital Course: pt has did better with ivf and iv insulin and has tolerated diet - he has did better with dec serum acetone - he wishes to leave and i discussed need to clear all his acetone but he insisted on leaving ama Objective Vital signs: Temp Pulse Resp BP Pulse Ox 98.3 F 99 H 18 142/60 H 100 09/12/18 07:47 09/12/18 18:00 09/12/18 18:00 09/12/18 18:00 09/12/18 18:00 no acute distress - *Routine HEENT Exam Head: Present: normocephalic Eye: Present: EOMI, PERRL ENT: Present: mucous membranes dry - *Routine Neck Exam Present: supple - *Routine Respiratory Exam Present: CTA bilaterally - *Routine Cardiovascular Exam Present: RRR - *Routine Abdominal Exam Present: soft - *Routine Extremities Exam Present: full ROM - *Routine Skin Exam Present: intact - *Routine Neurological Exam Present: alert, oriented X3, CN II-XII intact - Routine Psychiatric Exam Present: normal affect Results Labs on day of discharge: Labs from last 24 hours 09/12/18 09/12/18 09/12/18 19:23 18:10 17:37 WBC RBC Hgb Hct MCV MCH MCHC RDW Plt Count MPV Neut % (Auto) Lymph % (Auto) [place] % (Auto) Eos % (Auto) Baso % (Auto) Neut # (Auto) Lymph # (Auto) [place] # (Auto) Eos # (Auto) Baso # (Auto) Total Counted Neutrophils % (Manual) Lymphocytes % (Manual) Platelet Estimate RBC Morphology Anisocytosis ESR Sodium 142 Potassium 3.1 L Chloride 104 Carbon Dioxide 21 D Anion Gap 20.1 H BUN 9 Creatinine 0.90 Estimated Creat Clear 123 Estimated GFR 108 Est GFR ( Amer) 130 Glucose 108 H D POC Glucose 193 H 179 H Lactate Calcium 7.9 L Magnesium Total Bilirubin AST ALT Alkaline Phosphatase C-Reactive Protein Total Protein Albumin Globulin Albumin/Globulin Ratio Urine Color Urine Appearance Urine pH Ur Specific [place] Urine Protein Urine Glucose (UA) Urine Ketones Urine Blood Urine Nitrate Urine Bilirubin Urine Urobilinogen Ur Leukocyte Esterase Urine RBC Urine WBC Ur Squamous Epith Cells Urine Bacteria Acetone Level Small 09/12/18 09/12/18 09/12/18 14:17 13:37 11:26 WBC RBC Hgb Hct MCV MCH MCHC RDW Plt Count MPV Neut % (Auto) Lymph % (Auto) [place] % (Auto) Eos % (Auto) Baso % (Auto) Neut # (Auto) Lymph # (Auto) [place] # (Auto) Eos # (Auto) Baso # (Auto) Total Counted Neutrophils % (Manual) Lymphocytes % (Manual) Platelet Estimate RBC Morphology Anisocytosis ESR Sodium 137 Potassium 3.8 Chloride 105 Carbon Dioxide 17 L Anion Gap 18.8 H BUN 8 Creatinine 0.99 Estimated Creat Clear 111 Estimated GFR 96 Est GFR ( Amer) 117 Glucose 236 H POC Glucose 190 H 173 H Lactate Calcium 7.6 L Magnesium Total Bilirubin AST ALT Alkaline Phosphatase C-Reactive Protein Total Protein Albumin Globulin Albumin/Globulin Ratio Urine Color Urine Appearance Urine pH Ur Specific [place] Urine Protein Urine Glucose (UA) Urine Ketones Urine Blood Urine Nitrate Urine Bilirubin Urine Urobilinogen Ur Leukocyte Esterase Urine RBC Urine WBC Ur Squamous Epith Cells Urine Bacteria Acetone Level 09/12/18 09/12/18 09/12/18 10:06 10:00 08:17 WBC RBC Hgb Hct MCV MCH MCHC RDW Plt Count MPV Neut % (Auto) Lymph % (Auto) [place] % (Auto) Eos % (Auto) Baso % (Auto) Neut # (Auto) Lymph # (Auto) [place] # (Auto) Eos # (Auto) Baso # (Auto) Total Counted Neutrophils % (Manual) Lymphocytes % (Manual) Platelet Estimate RBC Morphology Anisocytosis ESR Sodium 137 Potassium 3.6 Chloride 104 Carbon Dioxide 16 L D Anion Gap 20.6 H BUN 8 Creatinine 1.01 Estimated Creat Clear 109 Estimated GFR 94 Est GFR ( Amer) 114 Glucose 255 H D POC Glucose 242 H 206 H Lactate Calcium 7.8 L Magnesium Total Bilirubin AST ALT Alkaline Phosphatase C-Reactive Protein Total Protein Albumin Globulin Albumin/Globulin Ratio Urine Color Urine Appearance Urine pH Ur Specific [place] Urine Protein Urine Glucose (UA) Urine Ketones Urine Blood Urine Nitrate Urine Bilirubin Urine Urobilinogen Ur Leukocyte Esterase Urine RBC Urine WBC Ur Squamous Epith Cells Urine Bacteria Acetone Level 09/12/18 09/12/18 09/12/18 06:49 05:55 05:30 WBC RBC Hgb Hct MCV MCH MCHC RDW Plt Count MPV Neut % (Auto) Lymph % (Auto) [place] % (Auto) Eos % (Auto) Baso % (Auto) Neut # (Auto) Lymph # (Auto) [place] # (Auto) Eos # (Auto) Baso # (Auto) Total Counted Neutrophils % (Manual) Lymphocytes % (Manual) Platelet Estimate RBC Morphology Anisocytosis ESR Sodium 137 Potassium 3.4 L Chloride 105 Carbon Dioxide 12 L Anion Gap 23.4 H BUN 9 Creatinine 0.87 D Estimated Creat Clear 127 Estimated GFR 112 Est GFR ( Amer) 135 D Glucose 172 H D POC Glucose 188 H 173 H Lactate Calcium 7.6 L D Magnesium 1.5 Total Bilirubin AST ALT Alkaline Phosphatase C-Reactive Protein Total Protein Albumin Globulin Albumin/Globulin Ratio Urine Color Urine Appearance Urine pH Ur Specific [place] Urine Protein Urine Glucose (UA) Urine Ketones Urine Blood Urine Nitrate Urine Bilirubin Urine Urobilinogen Ur Leukocyte Esterase Urine RBC Urine WBC Ur Squamous Epith Cells Urine Bacteria Acetone Level Moderate 09/12/18 09/12/18 09/12/18 05:30 04:55 03:55 WBC 17.6 H RBC 5.01 Hgb 15.3 D Hct 44.5 MCV 88.8 MCH 30.1 MCHC 33.8 RDW 13.8 Plt Count 290 MPV 8.5 Neut % (Auto) 71.7 Lymph % (Auto) 20.9 [place] % (Auto) 6.6 Eos % (Auto) 0.4 Baso % (Auto) 0.4 Neut # (Auto) 12.6 H Lymph # (Auto) 3.7 [place] # (Auto) 1.2 H Eos # (Auto) 0.1 Baso # (Auto) 0.1 Total Counted Neutrophils % (Manual) Lymphocytes % (Manual) Platelet Estimate RBC Morphology Anisocytosis ESR Sodium Potassium Chloride Carbon Dioxide Anion Gap BUN Creatinine Estimated Creat Clear Estimated GFR Est GFR ( Amer) Glucose POC Glucose 138 H 169 H Lactate Calcium Magnesium Total Bilirubin AST ALT Alkaline Phosphatase C-Reactive Protein Total Protein Albumin Globulin Albumin/Globulin Ratio Urine Color Urine Appearance Urine pH Ur Specific [place] Urine Protein Urine Glucose (UA) Urine Ketones Urine Blood Urine Nitrate Urine Bilirubin Urine Urobilinogen Ur Leukocyte Esterase Urine RBC Urine WBC Ur Squamous Epith Cells Urine Bacteria Acetone Level 09/12/18 09/12/18 09/12/18 03:00 02:05 00:10 WBC RBC Hgb Hct MCV MCH MCHC RDW Plt Count MPV Neut % (Auto) Lymph % (Auto) [place] % (Auto) Eos % (Auto) Baso % (Auto) Neut # (Auto) Lymph # (Auto) [place] # (Auto) Eos # (Auto) Baso # (Auto) Total Counted Neutrophils % (Manual) Lymphocytes % (Manual) Platelet Estimate RBC Morphology Anisocytosis ESR Sodium Potassium Chloride Carbon Dioxide Anion Gap BUN Creatinine Estimated Creat Clear Estimated GFR Est GFR ( Amer) Glucose POC Glucose 153 H 198 H Lactate Calcium Magnesium Total Bilirubin AST ALT Alkaline Phosphatase C-Reactive Protein < 0.2 Total Protein Albumin Globulin Albumin/Globulin Ratio Urine Color Urine Appearance Urine pH Ur Specific [place] Urine Protein Urine Glucose (UA) Urine Ketones Urine Blood Urine Nitrate Urine Bilirubin Urine Urobilinogen Ur Leukocyte Esterase Urine RBC Urine WBC Ur Squamous Epith Cells Urine Bacteria Acetone Level 09/12/18 09/12/18 09/12/18 00:10 00:10 00:10 WBC RBC Hgb Hct MCV MCH MCHC RDW Plt Count MPV Neut % (Auto) Lymph % (Auto) [place] % (Auto) Eos % (Auto) Baso % (Auto) Neut # (Auto) Lymph # (Auto) [place] # (Auto) Eos # (Auto) Baso # (Auto) Total Counted Neutrophils % (Manual) Lymphocytes % (Manual) Platelet Estimate RBC Morphology Anisocytosis ESR 1 Sodium Potassium Chloride Carbon Dioxide Anion Gap BUN Creatinine Estimated Creat Clear Estimated GFR Est GFR ( Amer) Glucose POC Glucose Lactate 1.2 Calcium Magnesium Total Bilirubin AST ALT Alkaline Phosphatase C-Reactive Protein Total Protein Albumin Globulin Albumin/Globulin Ratio Urine Color Urine Appearance Urine pH Ur Specific [place] Urine Protein Urine Glucose (UA) Urine Ketones Urine Blood Urine Nitrate Urine Bilirubin Urine Urobilinogen Ur Leukocyte Esterase Urine RBC Urine WBC Ur Squamous Epith Cells Urine Bacteria Acetone Level Moderate 09/12/18 09/12/18 09/12/18 00:10 00:10 00:10 WBC 16.7 H RBC 6.06 Hgb 18.8 H* Hct 55.2 H MCV 91.1 MCH 30.7 MCHC 33.7 RDW 14.0 Plt Count 335 MPV 8.7 Neut % (Auto) 77.3 Lymph % (Auto) 16.2 [place] % (Auto) 5.4 Eos % (Auto) 0.8 Baso % (Auto) 0.4 Neut # (Auto) 12.9 H Lymph # (Auto) 2.7 [place] # (Auto) 0.9 Eos # (Auto) 0.1 Baso # (Auto) 0.1 Total Counted 100 Neutrophils % (Manual) 86 H Lymphocytes % (Manual) 14 Platelet Estimate Normal RBC Morphology Not Reportable Anisocytosis 1+ ESR Sodium 136 Potassium 4.1 Chloride 98 Carbon Dioxide 11 L Anion Gap 31.1 H BUN 12 Creatinine 1.27 Estimated Creat Clear 87 Estimated GFR 72 Est GFR ( Amer) 87 Glucose 289 H POC Glucose Lactate Calcium 8.7 Magnesium Total Bilirubin 1.0 AST 9 L ALT 24 Alkaline Phosphatase 135 H C-Reactive Protein Total Protein 8.6 H Albumin 4.5 Globulin 4.1 H Albumin/Globulin Ratio 1.1 Urine Color Yellow Urine Appearance Clear Urine pH 5.5 Ur Specific [place] >= 1.030 Urine Protein 1+ Urine Glucose (UA) 2+ Urine Ketones 3+ Urine Blood Trace-i Urine Nitrate Negative Urine Bilirubin Negative Urine Urobilinogen 0.2 Ur Leukocyte Esterase Negative Urine RBC Occasional Urine WBC Occasional Ur Squamous Epith Cells 3-5 Urine Bacteria 1+ Acetone Level DS: Diagnosis - Discharge Diagnosis (1) DKA (diabetic ketoacidoses) Status: Acute (2) IDDM (insulin dependent diabetes mellitus) Status: Acute (3) Tobacco use Status: Acute Discharge Plan - Patient Discharge Instructions ACTIVITY: Continue current activity DIET: continue same diet Patient Instructions: Diabetic Ketoacidosis, DI for Diabetic Ketoacidosis - Follow up Plan Disposition: Left Against Medical Advice Home Medications: Home Medications Medication Instructions Recorded Confirmed Type insulin lispro (U-100) 100 unit/mL 2.5 unit SQ Q1H ml 12/27/17 09/12/18 History subcutaneous cartridge Prescriptions/Medication Reconciliation: Continued insulin lispro (U-100) 100 unit/mL subcutaneous cartridge 2.5 unit SQ Q1H ml
[2018-09-12 20:52] VITALS: BP 152/83
== END 2018-09-12 20:55 | disposition left against medical advice (07) ==
LOC: ICU 23:52 → ER 23:52 → ICU 09-12 01:24 → OBSVTOIN 09-12 01:25 → ICU 09-12 01:31
PROVIDERS: ADMIT Emergency Medicine; ATTEND Emergency Medicine
CPT/HCPCS: 36415; 80048; 80053; 81001; 82009; 82962; 83605; 83735; 85007; 85025; 85651; 86140; 87040; 93005; 96365; 96366; 96367; 96375; 99284; G0378; J2405

== ENCOUNTER 2018-12-10 11:48 | Inpatient (IN) ==
--- NOTE | 2018-12-10 12:08 | Emergency Department Note ---
ED Disposition Clinical Impression: DKA (diabetic ketoacidoses) Diabetes mellitus Qualifiers: Diabetes mellitus type: type 1 Diabetes mellitus complication status: with other specified complication Qualified Code(s): E10.69 - Type 1 diabetes m ellitus with other specified complication Diabetic ketoacidosis associated with type 1 diabetes mellitus Qualifiers: Diabetes mellitus complication detail: without coma Qualified Code(s): E10.10 - Type 1 diabetes mellitus with ketoacidosis without coma Disposition: Admitted As Inpatient Condition on Discharge: Serious Instructions: DI for Hyperglycemia -- Adult Additional Instructions: Patient of Dr. Ibarra is that I discussed with Dr. Estrella patient being admitted with diabetic ketoacidosis using the diabetic ketoacidosis protocol on the chart Referrals: Iam Ibarra MD [Primary Care Provider] - Time of Disposition: 15:37 - Critical Care Critical Care Time: Yes Attestation: On 12/10/18, the high probability of a clinically significant, sudden or life threatening deterioration of the following system(s) required my full and direct attention, intervention and personal management. The time I documented below is in addition to time spent performing reported procedures but includes the f ollowing listed in this critical care notation. Total Critical Care Time: 60 Vital system(s) involved:: Metabolic Failure My critical care processes included: Assessment & monitoring of V/S, Initial and Re-exams, Data Review/Interpretation, Coordinating Care, Medication Orders and management, Documentation Medical Decision Making - Medical Records Medical records reviewed: Yes: I reviewed the patient's medical records. - Dez Inquiry Pt receiving controlled substance: No Dez was queried for this patient: No Vital Signs: 12/10/18 11:55 12/10/18 12:30 12/10/18 13:35 Temperature 97.7 F Temperature Source Oral Pulse Rate [Right] 121 H 112 H 121 H Respiratory Rate 22 20 20 Blood Pressure [Right Arm] 120/83 124/78 170/80 H Blood Pressure Mean [Right Arm] 95 93 110 02 Sat by Pulse Oximetry 99 100 99 Oxygen Delivery Method Room Air 12/10/18 15:11 Temperature Temperature Source Pulse Rate [Right] 105 H Respiratory Rate 20 Blood Pressure [Right Arm] 135/84 Blood Pressure Mean [Right Arm] 101 02 Sat by Pulse Oximetry 100 Oxygen Delivery Method Room Air - Lab Data Lab results reviewed: Yes: I reviewed the patient's lab results. Lab Results 12/10/18 11:56: POC Glucose 319 H* 12/10/18 12:00: WBC 21.2 H*, RBC 5.95, Hgb 18.2 H*, Hct 55.7 H, MCV 93.6, MCH 30.9, MCHC 33.0, RDW 12.9, Plt Count 376, MPV 10.8 H, Neut % (Auto) 86.3 H, Lymph % (Auto) 10.2, [place] % (Auto) 2.7, Eos % (Auto) 0.1, Baso % (Auto) 0.6, Neut # (Auto) 18.3 H, Lymph # (Auto) 2.2, [place] # (Auto) 0.6, Eos # (Auto) 0.0, Baso # (Auto) 0.1, Total Counted 100, Neutrophils % (Manual) 93 H, Band Neutrophils % 1.0, Lymphocytes % (Manual) 4 L, Monocytes % (Manual) 2, Platelet Estimate Normal, RBC Morphology Normal 12/10/18 12:00: Sodium 133 L, Potassium 5.8 H, Chloride 99, Carbon Dioxide 9 L*, Anion Gap 30.8 H, BUN 20 H, Creatinine 1.29, Estimated Creat Clear 67, Estimated GFR 71, Est GFR ( Amer) 86, Glucose 340 H, Calcium 8.3 L, Total Bilirubin 0.7, AST 12 L, ALT 12, Alkaline Phosphatase 142 H, Total Protein 7.7, Albumin 3.9, Globulin 3.8 H, Albumin/Globulin Ratio 1.0 L, Acetone Level Moderate 12/10/18 12:45: Lactate 1.1 12/10/18 14:58: VBG pH 7.09 L, VBG pCO2 31.8 L, VBG pO2 38.8, VBG HCO3 9.4 L, VBG Total CO2 10.3 L, VBG O2 Saturation 73.2 H, VBG Base Excess -20.5 L 12/10/18 15:00: Urine Color Yellow, Urine Appearance Clear, Urine pH 5.5, Ur Specific [place] >= 1.030, Urine Protein 1+, Urine Glucose (UA) 2+, Urine Ketones 3+, Urine Blood Trace-i, Urine Nitrate Negative, Urine Bilirubin Negative, Urine Urobilinogen 0.2, Ur Leukocyte Esterase Negative 12/10/18 15:00: Urine Opiates Screen Negative, Urine Methadone Screen Negative, Ur Barbituates Screen Negative, Ur Phencyclidine Scrn Negative, Ur Amphetamines Screen Positive H, U Benzodiazepines Scrn Negative, Urine Cocaine Screen Negative, U Marijuana (THC) Screen Negative Result diagrams: 12/10/18 12:00 12/10/18 12:00 Orders (Tests/Meds): ED MEDICATIONS Generic Name Dose Route Start Last Admin Trade Name Freq PRN Reason Stop Dose Admin Insulin Human Regular 100 unit 101 mls @ 5.05 mls/hr 12/10/18 12:30 12/10/18 12:57 / Sodium Chloride IV 01/09/19 12:29 5.05 mls/hr .Q20H JOE Administration Protocol 5 UNIT/HR Sodium Chloride 1,000 mls @ 999 mls/hr 12/10/18 15:15 12/10/18 15:22 Sod Chlor 0.9% 1000ml Bag IV 12/10/18 16:15 999 mls/hr .Q1H1M JOE Administration Discontinued Medications Generic Name Dose Route Start Last Admin Trade Name Freq PRN Reason Stop Dose Admin Sodium Chloride 1,000 mls @ 999 mls/hr 12/10/18 12:00 12/10/18 12:01 Sod Chlor 0.9% 1000ml Bag IV 12/10/18 13:00 999 mls/hr .Q1H1M JOE Administration Sodium Chloride 1,000 mls @ 999 mls/hr 12/10/18 12:15 12/10/18 12:57 Sod Chlor 0.9% 1000ml Bag IV 12/10/18 13:15 999 mls/hr .Q1H1M JOE Administration Insulin Human Regular 10 unit 12/10/18 12:10 12/10/18 12:57 Humulin R Insulin 100 Units/Ml 10ml Vial IVP 12/10/18 12:11 10 unit ONCE ONE Administration Ondansetron HCl 4 mg 12/10/18 11:58 12/10/18 12:01 Zofran 4mg/2ml Vial IV 12/10/18 11:59 4 mg ONCE ONE Administration ORDERS Category Date Time Status Basic Metabolic Panel Stat Lab 12/10/18 15:06 Received Urinalysis and Microscopic Stat Lab 12/10/18 15:00 Results Blood Culture Stat Micro 12/10/18 12:45 Received Venous Blood Gas Stat RT 12/10/18 12:09 Received General Adult HPI - General Chief complaint: Hyper/Hypoglycemia Stated complaint: Diabetic Keto acidocis Time Seen by Provider: 12/10/18 12:01 Mode of Arrival: Ambulatory Limitations: No Limitations Description of Symptoms (Recalled from ER Triage Doc. by RN): Pt states his sugar has been in the 400s since yesterday, he has N/V, and believes he is in DKA, pt is a type 1 diabetic - History of Present Illness HPI narrative: Patient is a type I diabetic since he was 1 years old in the last year he has had 2 or 3 episodes of diabetic ketoacidosis he comes to the emergency room now with complaints of headache and stomach pain over the past week or so is extrem hannah dry and irritable he refuses to have a blood gas done but we will do a venous gas to see what his pH is and to get an idea of what his CO2 is he does smoke a half a pack a day he drinks little alcohol from time to time and he also smokes marijuana Onset (ago): day(s) Location: mouth - Related Data Home Medications Medication Instructions Recorded Confirmed insulin lispro (U-100) 100 unit/mL 2.5 unit SQ Q1H ml 12/27/17 12/10/18 subcutaneous cartridge Allergies Allergy/AdvReac Type Severity Reaction Status Date / Time No Known Allergies Allergy Verified 09/12/18 02:07 [facility] History - Hepatitis A Screen Drug use history?: No High risk sexual behaviors?: No History of sexually transmitted infection?: No Currently employed?: No Childcare worker?: No Do you have indoor plumbing?: Yes Do you have electricity?: Yes Attestation statement:: This patient has been screened for Hepatitis A risk factors. I have reviewed the patient's past medical history: Yes Medical History: Reports:: Diabetes Mellitus Type 1 Denies:: Cancer, Diabetes Mellitus Type 2, Internal Pacemaker, MRSA Laterality Cases: Bilateral: Tonsillectomy Other Surgeries: Yes: No Previous Surgery, Other. No: Pacemaker Amputation: No Fractures: Yes (right ankle) - Social History Smoking Status: Current every day smoker Tobacco Type: cigarettes # Packs/Day (cigarettes): 1 #Yrs smoked (if former smoker): 7 Alcohol Intake: never Alcohol Intake Frequency:: holidays/special occasions only Substance Use Type: marijuana Occupational Status: employed Housing: house Household Members: family Family Hx:: Diabetes, Heart Attack, Hypertension ROS Obtained: Yes All systems reviewed & no additional complaints - Constitutional Constitutional: Reports system reviewed and no additional complaints, except as docu, Reports as per HPI - ENT Ears, Nose, Mouth, and Throat: Reports system reviewed and no additional complaints, except as docu, Reports as per HPI - Cardiovascular Cardiovascular: Reports system reviewed and no additional complaints, except as docu, Reports as per HPI - Respiratory Respiratory: Yes system reviewed and no additional complaints, except as docu, Yes as per HPI - Gastrointestinal Gastrointestingal: Reports: system reviewed and no additional complaints, except as docu, as per HPI - Neurologic Neurologic: Reports system reviewed and no additional complaints, except as docu, Reports as per HPI Physical Exam - General General appearance: alert, in distress - Head Head exam: atraumatic - Eye Eye exam: Present: normal appearance - ENT ENT exam: Present: mucous membranes dry - Neck Neck exam: Present: normal inspection - Chest Chest inspection: Present: normal inspection - Respiratory Respiratory exam: Present: normal lung sounds bilaterally - Cardiovascular Cardiovascular exam: Present: regular rate, normal rhythm, tachycardia - Abdominal Exam Abdominal exam: Present: soft - Neurological Exam Neurological exam: Present: alert, oriented X3 - Psychiatric Psychiatric exam: Present: normal affect, agitated - Skin Skin exam: Present: dry - Lymphatic Lymphatic Findings: no adenopathy
[2018-12-10 12:22] LABS: Basophils # 0.1 K/mm3 (0-0.2); Basophils % 0.6 % (0.1-2.0); Eosinophils % 0.1 % (0.1-12.0); Hematocrit 55.7 % (42.0-52.0); Lymphocytes # 2.2 K/mm3 (0.7-4.5); Lymphocytes % 10.2 % (10-50); Mean Corpuscular Volume 93.6 fl (80-94); Mean Platelet Volume 10.8 fl (7.4-10.4); Monocytes # 0.6 K/mm3 (0.1-1.0); Monocytes % 2.7 % (1.7-9.3); Neutrophils # 18.3 K/mm3 (1.8-7.8); Neutrophils % 86.3 % (37.0-80.0); Platelet Count 376 K/mm3 (142-424); Red Blood Count 5.95 M/mm3 (4.60-6.20); Red Cell Distribution Width 12.9 % (11.5-17.5); White Blood Count 21.2 K/mm3 (4.5-13.0)
[2018-12-10 12:23] LABS: Acetone, Serum (Rapid) Moderate (None Detect)
[2018-12-10 12:28] LABS: Lymphocytes % 4 % (10-50); Monocytes % 2 % (2-9); Neutrophils % 93 % (42-76); Total Cells Counted 100
[2018-12-10 12:29] LABS: RBC Morphology Normal
[2018-12-10 12:59] LABS: Hemoglobin 18.2 g/dL (14.1-18.0)
[2018-12-10 13:01] LABS: VBG Base Excess -21.6 mmol/L (-2.4-2.3); VBG HCO3 9.4 mmol/L (23-30); VBG Oxygen Saturation 64.7 % (50-70); VBG PCO2 37.4 mmol/L (35-51); VBG PO2 40.5 mmol/L (28-40); VBG Total CO2 10.5 mmol/L (23-27)
[2018-12-10 13:04] LABS: VBG PH 7.02 mmol/L (7.31-7.41)
[2018-12-10 13:17] LABS: Alanine Aminotransferase 12 U/L (12-78); Albumin Level 3.9 gm/dL (3.4-5.0); Alkaline Phosphatase 142 U/L (46-116); Anion Gap 30.8 mEq/L (5-15); Bilirubin,Total 0.7 mg/dL (0.2-1.0); Blood Urea Nitrogen 20 mg/dL (7-18); Calcium 8.3 mg/dL (8.5-10.1); Chloride 99 mmol/L (98-107); Globulin 3.8 gm/dl (1.3-3.2); Glucose 340 mg/dL (74-106); Sodium 133 mmol/L (136-145); Total Protein,Serum 7.7 gm/dL (6.4-8.2)
[2018-12-10 13:25] LABS: Carbon Dioxide 9 mmol/L (21.0-32.0)
[2018-12-10 13:26] LABS: Aspartate Amino Transferase 12 U/L (15-37)
[2018-12-10 15:05] LABS: Microscopic, Urine URINE MICROSCOPIC (MICROSCOPIC)
[2018-12-10 15:10] LABS: Appearance,Urine CLEAR (Clear); Bilirubin,Urine Negative (Negative); Blood, Urine TRACE-I (Negative); Color,Urine YELLOW (Yellow); Glucose,Urine (UA) 2+ (Negative); Ketones,Urine 3+ (Negative); Leukocyte Esterase,Urine Negative (Negative); PH,Urine 5.5 (5.0-8.5); Protein,Urine 1+ (Negative); Specific Gravity, Urine >= 1.030 (1.005-1.030); Urobilinogen,Urine 0.2 EU/dl (0.2)
[2018-12-10 15:17] LABS: Amphetamine/Metha Screen,Urine Positive ng/mL (<1000); Barbiturates Screen,Urine Negative ng/mL (<200); Benzodiazepines Screen,Urine Negative ng/mL (<200); Cannabinoid Screen,Urine Negative ng/mL (<50); Cocaine Screen,Urine Negative ng/mL (<300); Methadone Screen,Urine Negative ng/mL (<300); Opiate Screen,Urine Negative ng/mL (<300); Phencyclidine Screen,Urine Negative ng/mL (<25)
[2018-12-10 15:17] LABS: VBG PCO2 31.8 mmol/L (35-51); VBG PH 7.09 mmol/L (7.31-7.41); VBG PO2 38.8 mmol/L (28-40)
[2018-12-10 15:18] LABS: VBG Base Excess -20.5 mmol/L (-2.4-2.3); VBG HCO3 9.4 mmol/L (23-30); VBG Oxygen Saturation 73.2 % (50-70); VBG Total CO2 10.3 mmol/L (23-27)
[2018-12-10 15:29] LABS: Anion Gap 30.2 mEq/L (5-15); Calcium 8.7 mg/dL (8.5-10.1)
[2018-12-10 15:37] LABS: Bacteria,Urine Trace /lpf; RBC,Urine Occasional #/hpf (0-3); Squamous Epithelial Cell,Urine Occasional #/hpf (0-5); WBC,Urine Occasional #/hpf (0-3)
[2018-12-10 21:07] LABS: Anion Gap 21.3 mEq/L (5-15)
[2018-12-10 21:08] LABS: Calcium 7.8 mg/dL (8.5-10.1)
[2018-12-11 00:44] LABS: Acetone, Serum (Rapid) Small (None Detect)
[2018-12-11 00:48] LABS: Anion Gap 19.1 mEq/L (5-15); Blood Urea Nitrogen 9 mg/dL (7-18); Calcium 8.1 mg/dL (8.5-10.1); Carbon Dioxide 18 mmol/L (21.0-32.0); Chloride 104 mmol/L (98-107); Sodium 137 mmol/L (136-145)
[2018-12-11 00:51] LABS: Glucose 203 mg/dL (74-106)
[2018-12-11 05:23] LABS: Basophils # 0.1 K/mm3 (0-0.2); Basophils % 0.4 % (0.1-2.0); Eosinophils # 0.1 K/mm3 (0.0-0.4); Eosinophils % 0.8 % (0.1-12.0); Hematocrit 44.1 % (42.0-52.0); Hemoglobin 14.5 g/dL (14.1-18.0); Lymphocytes # 2.6 K/mm3 (0.7-4.5); Lymphocytes % 19.7 % (10-50); Mean Corpuscular HGB Conc 32.9 g/dL (31.8-35.4); Mean Corpuscular Volume 90.9 fl (80-94); Mean Platelet Volume 9.6 fl (7.4-10.4); Monocytes # 0.7 K/mm3 (0.1-1.0); Monocytes % 5.5 % (1.7-9.3); Neutrophils # 9.7 K/mm3 (1.8-7.8); Neutrophils % 73.6 % (37.0-80.0); Platelet Count 265 K/mm3 (142-424); Red Blood Count 4.85 M/mm3 (4.60-6.20); Red Cell Distribution Width 12.9 % (11.5-17.5); White Blood Count 13.2 K/mm3 (4.5-13.0)
[2018-12-11 05:35] LABS: Anion Gap 16.6 mEq/L (5-15)
--- NOTE | 2018-12-11 07:39 | Pharmacy Consult Notes ---
[facility] Pharmacy VTE Monitoring - Patient Demographics Admission date: 12/10/18 Report Date: 12/11/18 Time: 07:38 Allergies/Adverse Reactions: Patient Allergies No Known Allergies Allergy (Verified 09/12/18 02:07) Height: 1.83 m Weight: 59.874 kg Patient Problems: Current Active Problems DKA (diabetic ketoacidoses) (Acute) Diabetes mellitus (Acute) Diabetic ketoacidosis associated with type 1 diabetes mellitus (Acute) - VTE Risk Labs: VTE Related Lab Results Hgb 14.5 g/dL (14.1-18.0) D 12/11/18 04:55 Hct 44.1 % (42.0-52.0) 12/11/18 04:55 Plt Count 265 K/mm3 (142-424) D 12/11/18 04:55 BUN 8 mg/dL (7-18) 12/11/18 04:55 Creatinine 0.93 mg/dL (0.70-1.30) 12/11/18 04:55 Estimated Creat Clear 107 mL/min (50-200) 12/11/18 04:55 VTE Score: 0 - Prophylaxis VTE Prophylaxis Ordered?: Yes Types of VTE Prophylaxis: TEDS Knee High Location of Applied Device: Bilateral Lower Extremeties - VTE Diagnosis Confirmed Treatment or plan recommended: Continue Current Treatment
[2018-12-11 08:42] LABS: Anion Gap 15.4 mEq/L (5-15); Calcium 7.9 mg/dL (8.5-10.1)
--- NOTE | 2018-12-11 13:05 | History & Physical Report ---
*Admission Date: 12/10/18 *Chief complaint: feeling ill - *History of present illness: this wm who has iddm with recurrent episodes of dka - had not felt well but no def febrile or gi illness - pt was seen in the ed Pt states his sugar has been in the 400s since yesterday, he has N/V, and believes he is in DKA, pt is a type 1 diabeti Patient is a type I diabetic since he was 1 years old in the last year he has had 2 or 3 episodes of diabetic ketoacidosis he comes to the emergency room now with complaints of headache and stomach pain over the past week or so is extremely dry and irritable he refuses to have a blood gas done but we will do a venous gas to see what his pH is and to get an idea of what his CO2 is he does smoke a half a pack a day he drinks little alcohol from time to time and he also smokes marijuana pt was admitted for acute dka [facility] History I have reviewed the patient's past medical history: Yes Medical History: Reports:: Diabetes Mellitus Type 1 Denies:: Cancer, Diabetes Mellitus Type 2, Internal Pacemaker, MRSA *Have you ever received a pneumonia vaccine?: No *Have you received a flu vaccine this season?: Yes Laterality Cases: Bilateral: Tonsillectomy Other Surgeries: Yes: No Previous Surgery, Other. No: Pacemaker Amputation: No Fractures: Yes (right ankle) - *Social History Educational Level: Completed High School Smoking Status: Current every day smoker Tobacco Type: cigarettes # Packs/Day (cigarettes): 1 #Yrs smoked (if former smoker): 7 Alcohol Intake: never Alcohol Intake Frequency:: holidays/special occasions only Substance Use Type: marijuana *Occupational Status:: unemployed Housing: house Household Members: family *Travel in the last 8 weeks: None Family Hx:: Diabetes, Heart Attack, Hypertension Review of Systems - Review of Systems Review of systems:: pertinent systems reviewed and negative unless documented below - Constitutional Reports fatigue, Reports weakness - Eyes Reports blurry vision - ENT Denies sore throat - *Cardiovascular Denies chest pain at rest - *Respiratory Denies cough - *Gastrointestinal Reports nausea, Reports vomiting, Denies abdominal pain, Denies loose stools, Denies vomiting blood - *Genitourinary Denies blood in urine - *Musculoskeletal Denies joint pain, Denies joint swelling - Integumentary/Breasts Denies rash - *Neurologic Reports confusion, Reports dizziness, Denies behavioral changes, Denies seizure-like activity, Denies localized weakness, Denies loss of vision, Denies seizure-like activity - Psychiatric Denies behavioral changes Meds Home Medications Medication Instructions Recorded Confirmed Type insulin lispro (U-100) 100 unit/mL 2.5 unit SQ Q1H ml 12/27/17 12/10/18 History subcutaneous cartridge Allergies Allergy/AdvReac Type Severity Reaction Status Date / Time No Known Allergies Allergy Verified 09/12/18 02:07 Exam Vital signs and Labs for Last 24 Hours: Temp Pulse Resp BP Pulse Ox 98.9 F 58 L 16 129/87 100 12/11/18 04:00 12/11/18 12:00 12/11/18 12:00 12/11/18 12:00 12/11/18 12:00 Laboratory Results - last 24 hr 12/10/18 12:00: Sodium 133 L, Potassium 5.8 H, Chloride 99, Carbon Dioxide 9 L*, Anion Gap 30.8 H, BUN 20 H, Creatinine 1.29, Estimated Creat Clear 67, Estimated GFR 71, Est GFR ( Amer) 86, Glucose 340 H, Calcium 8.3 L, Total Bilirubin 0.7, AST 12 L, ALT 12, Alkaline Phosphatase 142 H, Total Protein 7.7, Albumin 3.9, Globulin 3.8 H, Albumin/Globulin Ratio 1.0 L 12/10/18 12:45: Lactate 1.1 12/10/18 13:50: POC Glucose 261 H 12/10/18 14:58: VBG pH 7.09 L, VBG pCO2 31.8 L, VBG pO2 38.8, VBG HCO3 9.4 L, VBG Total CO2 10.3 L, VBG O2 Saturation 73.2 H, VBG Base Excess -20.5 L 12/10/18 15:00: Urine Color Yellow, Urine Appearance Clear, Urine pH 5.5, Ur Specific [place] >= 1.030, Urine Protein 1+, Urine Glucose (UA) 2+, Urine Ketones 3+, Urine Blood Trace-i, Urine Nitrate Negative, Urine Bilirubin Negative, Urine Urobilinogen 0.2, Ur Leukocyte Esterase Negative, Urine RBC Occasional, Urine WBC Occasional, Ur Squamous Epith Cells Occasional, Urine Bacteria Trace 12/10/18 15:00: Urine Opiates Screen Negative, Urine Methadone Screen Negative, Ur Barbituates Screen Negative, Ur Phencyclidine Scrn Negative, Ur Amphetamines Screen Positive H, U Benzodiazepines Scrn Negative, Urine Cocaine Screen Negative, U Marijuana (THC) Screen Negative 12/10/18 15:06: Sodium 137, Potassium 5.2 H, Chloride 101, Carbon Dioxide 11 L D , Anion Gap 30.2 H, BUN 19 H, Creatinine 1.22, Estimated Creat Clear 71, Estimated GFR 76, Est GFR ( Amer) 92, Glucose 235 H D, Calcium 8.7 12/10/18 16:16: POC Glucose 177 H 12/10/18 17:47: POC Glucose 180 H 12/10/18 20:12: POC Glucose 148 H 12/10/18 20:50: Sodium 138, Potassium 4.3, Chloride 104, Carbon Dioxide 17 L D, Anion Gap 21.3 H, BUN 11 D, Creatinine 0.99, Estimated Creat Clear 101, Estimated GFR 96, Est GFR ( Amer) 117 D, Glucose 163 H D, Calcium 7.8 L D 12/10/18 21:51: POC Glucose 161 H 12/10/18 23:49: POC Glucose 200 H 12/11/18 00:30: Sodium 137, Potassium 4.1, Chloride 104, Carbon Dioxide 18 L, Anion Gap 19.1 H, BUN 9, Creatinine 1.01, Estimated Creat Clear 99, Estimated GFR 94, Est GFR ( Amer) 114, Glucose 203 H D, Calcium 8.1 L, Acetone Level Small 12/11/18 02:01: POC Glucose 175 H 12/11/18 03:55: POC Glucose 193 H 12/11/18 04:55: WBC 13.2 H D, RBC 4.85, Hgb 14.5 D, Hct 44.1, MCV 90.9, MCH 29.9, MCHC 32.9, RDW 12.9, Plt Count 265 D, MPV 9.6, Neut % (Auto) 73.6, Lymph % (Auto) 19.7, [place] % (Auto) 5.5, Eos % (Auto) 0.8, Baso % (Auto) 0.4, Neut # (Auto) 9.7 H, Lymph # (Auto) 2.6, [place] # (Auto) 0.7, Eos # (Auto) 0.1, Baso # (Auto) 0.1 12/11/18 04:55: Sodium 137, Potassium 3.6, Chloride 105, Carbon Dioxide 19 L, Anion Gap 16.6 H, BUN 8, Creatinine 0.93, Estimated Creat Clear 107, Estimated GFR 104, Est GFR ( Amer) 125, Glucose 165 H, Calcium 8.0 L, Amylase 32, Lipase 74 12/11/18 05:58: POC Glucose 174 H 12/11/18 08:03: POC Glucose 175 H 12/11/18 08:28: Sodium 137, Potassium 3.4 L, Chloride 105, Carbon Dioxide 20 L, Anion Gap 15.4 H, BUN 9, Creatinine 0.92, Estimated Creat Clear 108, Estimated GFR 105, Est GFR ( Amer) 127, Glucose 199 H D, Calcium 7.9 L 12/11/18 08:28: Acetone Level Small 12/11/18 10:29: POC Glucose 159 H I & O for Last 24 hours: Intake & Output 12/09/18 12/10/18 12/11/18 12/12/18 12:59 11:59 11:59 11:59 Intake Total 7377 / 7377 Output Total 900 / 900 Balance 6477 / 6477 Weight 131 lb 15.993 oz - Constitutional no acute distress, thin - *Routine HEENT Exam Head: Present: normocephalic Eye: Present: EOMI, PERRL. Absent: conjunctival icterus ENT: Present: mucous membranes dry - *Routine Neck Exam Present: supple. Absent: JVD - *Routine Respiratory Exam Present: decreased breath sounds - *Routine Cardiovascular Exam Present: RRR, murmur - *Routine Abdominal Exam Present: soft - *Routine Extremities Exam Absent: calf tenderness - *Routine Skin Exam Present: intact - *Routine Neurological Exam Present: alert, oriented X3, CN II-XII intact - Routine Psychiatric Exam Present: normal affect Assessment and Plan (1) DKA (diabetic ketoacidoses) Current visit: Yes Status: Acute Category: Medical Code(s): E13.10 - Other specified diabetes mellitus with ketoacidosis without coma (2) Diabetic ketoacidosis associated with type 1 diabetes mellitus Current visit: Yes Status: Acute Qualifiers: Diabetes mellitus complication detail: without coma Qualified Code(s): E10.10 - Type 1 diabetes mellitus with ketoacidosis without coma Category: Medical Code(s): E10.10 - Type 1 diabetes mellitus with ketoacidosis without coma (3) IDDM (insulin dependent diabetes mellitus) Current visit: No Status: Acute Category: Medical Code(s): E11.9 - Type 2 diabetes mellitus without complications; Z79.4 - joint terminal attack controller (current) use of insulin (4) Tobacco use Current visit: No Status: Acute Category: Medical Code(s): Z72.0 - Tobacco use
[2018-12-11 13:57] LABS: Anion Gap 14.2 mEq/L (5-15); Calcium 7.8 mg/dL (8.5-10.1); Carbon Dioxide 22 mmol/L (21.0-32.0); Chloride 106 mmol/L (98-107); Glucose 161 mg/dL (74-106); Sodium 139 mmol/L (136-145)
[2018-12-11 14:07] LABS: Blood Urea Nitrogen 7 mg/dL (7-18)
[2018-12-11 15:31] LABS: Acetone, Serum (Rapid) Small (None Detect)
[2018-12-11 17:19] VITALS: BP 117/64
--- NOTE | 2019-01-16 13:58 | Discharge Summary ---
General - General Admission date:: 12/10/18 Discharge date: 12/11/18 (left ama) HPI HPI: this wm who has iddm with recurrent episodes of dka - had not felt well but no def febrile or gi illness - pt was seen in the ed Pt states his sugar has been in the 400s since yesterday, he has N/V, and believes he is in DKA, pt is a type 1 diabeti Patient is a type I diabetic since he was 1 years old in the last year he has had 2 or 3 episodes of diabetic ketoacidosis he comes to the emergency room now with complaints of headache and stomach pain over the past week or so is extremely dry and irritable he refuses to have a blood gas done but we will do a venous gas to see what his pH is and to get an idea of what his CO2 is he does smoke a half a pack a day he drinks little alcohol from time to time and he also smokes marijuana pt was admitted for acute dka Hospital Course Hospital Course: pt left ama Objective Vital signs: Temp Pulse Resp BP Pulse Ox 98.9 F 90 16 117/64 100 12/11/18 04:00 12/11/18 16:14 12/11/18 16:00 12/11/18 16:00 12/11/18 16:00 Results - Additional Comments darrick rounded earlier on pt DS: Diagnosis - Discharge Diagnosis (1) DKA (diabetic ketoacidoses) Status: Acute (2) Diabetic ketoacidosis associated with type 1 diabetes mellitus Status: Acute (3) IDDM (insulin dependent diabetes mellitus) Status: Acute (4) Tobacco use Status: Acute Discharge Plan - Patient Discharge Instructions ACTIVITY: Continue current activity DIET: continue same diet - Follow up Plan Follow up with: Iam Ibarra MD [Primary Care Provider] - Disposition: Left Against Medical Advice Home Medications: Home Medications Medication Instructions Recorded Confirmed Type insulin lispro (U-100) 100 unit/mL 2.5 unit SQ Q1H ml 12/27/17 12/23/18 History subcutaneous cartridge Prescriptions/Medication Reconciliation: No Action insulin lispro (U-100) 100 unit/mL subcutaneous cartridge 2.5 unit SQ Q1H ml - Problem Reconciliation Problems Reviewed?: Yes
== END 2018-12-11 17:55 | disposition left against medical advice (07) | DRG 639 ==
LOC: ER 11:48 → 2ND 15:35
PROVIDERS: ADMIT Emergency Medicine; ATTEND Emergency Medicine
CPT/HCPCS: J2405

== ENCOUNTER 2018-12-23 11:09 | Observation (INO) ==
--- NOTE | 2018-12-23 11:21 | Emergency Department Note ---
ED Disposition Clinical Impression: Diabetic ketoacidosis Qualifiers: Diabetes mellitus type: type 1 Diabetes mellitus complication detail: without coma Qualified Code(s): E10.10 - Type 1 diabetes mellitus with ketoacidosis without coma Disposition: Admitted As Inpatient Condition on Discharge: Serious Referrals: Iam Ibarra MD [Primary Care Provider] - - Critical Care Critical Care Time: Yes Attestation: On 12/23/18, the high probability of a clinically significant, sudden or life threatening deterioration of the following system(s) required my full and direct attention, intervention and personal management. The time I documented below is in addition to time spent performing reported procedures but includes the following listed in this critical care notation. Total Critical Care Time: 40 Vital system(s) involved:: Metabolic Failure My critical care processes included: Assessment & monitoring of V/S, Initial and Re-exams, Data Review/Interpretation, Coordinating Care, Medication Orders and management, Documentation Medical Decision Making - Dez Inquiry Pt receiving controlled substance: No Vital Signs: 12/23/18 11:17 12/23/18 11:56 12/23/18 12:10 Temperature 98.1 F Temperature Source Oral Pulse Rate [Right Radial] 124 H 115 H 107 H Respiratory Rate 18 24 Blood Pressure [Right Arm] 159/93 H 165/95 H 157/95 H Blood Pressure Mean [Right Arm] 115 118 115 Blood Pressure Source [Right Arm] Automatic Cuff Automatic Cuff Blood Pressure Position [Right Arm] Sitting Supine Sitting 02 Sat by Pulse Oximetry 99 100 98 Oxygen Delivery Method Room Air Room Air - Lab Data Lab Results 12/23/18 11:15: VBG pH 6.91 L, VBG pCO2 33.7 L, VBG pO2 35.0, VBG HCO3 6.6 L, VBG Total CO2 7.6 L, VBG O2 Saturation 57.3, VBG Base Excess -26.2 L 12/23/18 11:15: POC Glucose 389 H* 12/23/18 11:20: WBC 32.6 H*, RBC 5.99, Hgb 18.3 H*, Hct 57.4 H, MCV 95.9 H, MCH 30.5, MCHC 31.8, RDW 13.4, Plt Count 440 H, MPV 10.3, Neut % (Auto) 86.0 H, Lymph % (Auto) 8.4 L, [place] % (Auto) 4.5, Eos % (Auto) 0.4, Baso % (Auto) 0.7, Neut # (Auto) 28.1 H, Lymph # (Auto) 2.8, [place] # (Auto) 1.5 H, Eos # (Auto) 0.1, Baso # (Auto) 0.2, Total Counted 100, Neutrophils % (Manual) 86 H, Lymphocytes % (Manual) 9 L, Monocytes % (Manual) 4, Eosinophils % (Manual) 1, Platelet Estimate Slight increase, RBC Morphology Normal 12/23/18 11:20: Sodium 130 L, Potassium 5.9 H, Chloride 95 L, Carbon Dioxide 8 L*, Anion Gap 32.9 H, BUN 21 H, Creatinine 1.50 H, Estimated Creat Clear 68, Estimated GFR 60, Est GFR ( Amer) 72, Glucose 405 H*, Calcium 9.5, Phosphorus 6.6 H, Magnesium 2.6 H, Total Bilirubin 0.7, AST 18, ALT 15, Alkaline Phosphatase 172 H, Total Protein 9.7 H D, Albumin 5.0, Globulin 4.7 H, Albumin/Globulin Ratio 1.1, Plasma/Serum Alcohol 0, Acetone Level Moderate 12/23/18 11:20: Lactate 2.2 H 12/23/18 11:20: Lipase 87 12/23/18 11:20: Hemoglobin A1c 9.5 H Result diagrams: 12/23/18 11:20 12/23/18 11:20 Orders (Tests/Meds): ED MEDICATIONS Generic Name Dose Route Start Last Admin Trade Name Freq PRN Reason Stop Dose Admin Insulin Human Regular 100 unit 101 mls @ 6.185 mls/hr 12/23/18 12:00 12/23/18 12:22 / Sodium Chloride IV 01/22/19 11:59 6.185 mls/hr .[id number] JOE Administration Protocol 0.1 UNITS/KG/HR Sodium Chloride 1,000 mls @ 250 mls/hr 12/23/18 12:15 12/23/18 12:15 Sod Chlor 0.9% 1000ml Bag IV 01/22/19 12:14 250 mls/hr .Q4H JOE Administration Discontinued Medications Generic Name Dose Route Start Last Admin Trade Name Freq PRN Reason Stop Dose Admin Ondansetron HCl 4 mg 12/23/18 11:26 12/23/18 11:27 Zofran 4mg/2ml Vial IV 12/23/18 11:27 4 mg ONCE ONE Administration Promethazine HCl 12.5 mg 12/23/18 12:42 12/23/18 12:49 Phenergan 25mg/Ml 1ml Vial IV 12/23/18 12:43 12.5 mg ONCE ONE Administration Sodium Chloride 1,000 ml 12/23/18 11:17 12/23/18 11:27 Sod Chlor 0.9% 1000ml Bag IV 12/23/18 11:18 1,000 ml BOLUS ONE Administration Sodium Chloride 25 ml 12/23/18 12:42 Sod Chlor 0.9% 25ml Bag IV 12/23/18 12:43 ONCE ONE ORDERS Category Date Time Status XR chest portable Stat Exams 12/23/18 11:29 Taken Drug Screen,Urine Stat Lab 12/23/18 11:15 Ordered Urinalysis and Microscopic Stat Lab 12/23/18 11:15 Ordered Blood Culture Stat Micro 12/23/18 11:30 Received - Radiology Data #1 Image(s): Chest Image Reviewed: Yes I reviewed the patient's radiology image Preliminary Findings: Normal/NAD - ECG Data Tracing #1 EKG interpreted by Arnoldo Ni MD: Rhythm: sinus tachycardia Rate: 118 [place]: Rightward Ectopy: none Conduction: normal ST Segment Changes: Nonspecific T Wave Changes: Peaked in lead V2, otherwise nonspecific changes in inferior and lateral Q Waves: none No evidence of acute ischemia or injury Medical Decision Narrative: Dr. Connolly question whether patient would benefit from transfer to [place] where he could see an opto mechanical technician and possibly a substance abuse counselor, because he also has a history of substance abuse. I spoke with the patient about this. He has an opto mechanical technician that goes to [facility], but he does not want to be transferred. General Adult HPI - General Stated complaint: High blood sugar Time Seen by Provider: 12/23/18 11:21 - History of Present Illness HPI narrative: The patient is a type I brittle diabetic. He says that he woke up this morning feeling terrible. Blood sugar was elevated at 389. Has nausea, 2 episodes of vomiting, chest and abdominal pain. Denies diarrhea. Denies fever. Denies urinary symptoms. No cough or URI symptoms. Yesterday he felt fine. States yesterday blood sugar was fine. He has not eaten today, cannot hold water down today. Feels dry. Has an insulin pump which appears to be working, he does not have any error messages on it. - Related Data Home Medications Medication Instructions Recorded Confirmed insulin lispro (U-100) 100 unit/mL 2.5 unit SQ Q1H ml 12/27/17 12/10/18 subcutaneous cartridge Allergies Allergy/AdvReac Type Severity Reaction Status Date / Time No Known Allergies Allergy Verified 09/12/18 02:07 [facility] History - Hepatitis A Screen Attestation statement:: This patient has been screened for Hepatitis A risk factors. I have reviewed the patient's past medical history: Yes Medical History: Reports:: Diabetes Mellitus Type 1 Denies:: Cancer, Diabetes Mellitus Type 2, Internal Pacemaker, MRSA Laterality Cases: Bilateral: Tonsillectomy Other Surgeries: Yes: No Previous Surgery, Other. No: Pacemaker Amputation: No Fractures: Yes (right ankle) - Social History Smoking Status: Current every day smoker Tobacco Type: cigarettes # Packs/Day (cigarettes): 1 #Yrs smoked (if former smoker): 7 Alcohol Intake: never Alcohol Intake Frequency:: holidays/special occasions only Substance Use Type: marijuana Occupational Status: unemployed Housing: house Household Members: family Family Hx:: Diabetes, Heart Attack, Hypertension ROS Obtained: Yes All systems reviewed & no additional complaints - Constitutional Constitutional: Denies fever(s) - ENT Ears, Nose, Mouth, and Throat: Denies nasal discharge, Denies sore throat - Cardiovascular Cardiovascular: Reports chest pain - Respiratory Respiratory: No dyspnea - Gastrointestinal Gastrointestingal: Reports: abdominal pain, nausea, vomiting. Denies: constipation, diarrhea - Genitourinary Male Genitourinary: Denies difficulty urinating - Neurologic Neurologic: Denies headache(s) Physical Exam - General General appearance: alert, anxious Comment: Appears dry, tachypneic - Head Head exam: atraumatic, normocephalic - Eye Eye exam: Present: normal appearance, EOMI - ENT ENT exam: Present: normal exam, mucous membranes dry - Neck Neck exam: Present: normal inspection, full ROM - Chest Chest inspection: Present: normal inspection, symmetric chest wall rise - Respiratory Respiratory exam: Present: normal lung sounds bilaterally. Absent: accessory muscle use - Cardiovascular Cardiovascular exam: Present: normal rhythm, tachycardia, normal heart sounds - Abdominal Exam Abdominal exam: Present: soft, tenderness, normal bowel sounds. Absent: distention, guarding, rebound, rigidity Abdominal tenderness: Present: diffuse, mild - Extremities Exam Extremities exam: Present: normal inspection - Neurological Exam Neurological exam: Present: alert, oriented X3 - Psychiatric Psychiatric exam: Present: anxious - Skin Skin exam: Present: warm, dry
[2018-12-23 11:45] LABS: Basophils # 0.2 K/mm3 (0-0.2); Basophils % 0.7 % (0.1-2.0); Eosinophils # 0.1 K/mm3 (0.0-0.4); Eosinophils % 0.4 % (0.1-12.0); Hematocrit 57.4 % (42.0-52.0); Lymphocytes # 2.8 K/mm3 (0.7-4.5); Lymphocytes % 8.4 % (10-50); Mean Corpuscular HGB Conc 31.8 g/dL (31.8-35.4); Mean Corpuscular Volume 95.9 fl (80-94); Mean Platelet Volume 10.3 fl (7.4-10.4); Monocytes # 1.5 K/mm3 (0.1-1.0); Monocytes % 4.5 % (1.7-9.3); Neutrophils # 28.1 K/mm3 (1.8-7.8); Platelet Count 440 K/mm3 (142-424); Red Blood Count 5.99 M/mm3 (4.60-6.20); Red Cell Distribution Width 13.4 % (11.5-17.5); White Blood Count 32.6 K/mm3 (4.5-13.0)
[2018-12-23 11:50] LABS: Alanine Aminotransferase 15 U/L (12-78); Albumin/Globulin Ratio 1.1 (1.1-1.8); Alkaline Phosphatase 172 U/L (46-116); Anion Gap 32.9 mEq/L (5-15); Bilirubin,Total 0.7 mg/dL (0.2-1.0); Blood Urea Nitrogen 21 mg/dL (7-18); Calcium 9.5 mg/dL (8.5-10.1); Chloride 95 mmol/L (98-107); Globulin 4.7 gm/dl (1.3-3.2); Phosphorous 6.6 mg/dL (2.4-4.9); Sodium 130 mmol/L (136-145); Total Protein,Serum 9.7 gm/dL (6.4-8.2)
[2018-12-23 11:52] LABS: Aspartate Amino Transferase 18 U/L (15-37)
[2018-12-23 11:53] LABS: Carbon Dioxide 8 mmol/L (21.0-32.0)
[2018-12-23 11:54] LABS: Glucose 405 mg/dL (74-106)
[2018-12-23 12:28] LABS: Ethyl Alcohol 0 mg/dL (0-99)
[2018-12-23 12:32] LABS: Acetone, Serum (Rapid) Moderate (None Detect)
[2018-12-23 12:43] LABS: Eosinophils % 1 % (0-3); Lymphocytes % 9 % (10-50); Monocytes % 4 % (2-9); Neutrophils % 86 % (42-76); Total Cells Counted 100
[2018-12-23 12:46] LABS: VBG Base Excess -26.2 mmol/L (-2.4-2.3); VBG HCO3 6.6 mmol/L (23-30); VBG Oxygen Saturation 57.3 % (50-70); VBG PCO2 33.7 mmol/L (35-51); VBG Total CO2 7.6 mmol/L (23-27)
[2018-12-23 12:49] LABS: RBC Morphology Normal
[2018-12-23 12:49] LABS: VBG PH 6.91 mmol/L (7.31-7.41)
[2018-12-23 12:57] LABS: Hemoglobin 18.3 g/dL (14.1-18.0)
[2018-12-23 15:11] LABS: Appearance,Urine CLEAR (Clear); Bilirubin,Urine Negative (Negative); Blood, Urine TRACE-I (Negative); Color,Urine YELLOW (Yellow); Glucose,Urine (UA) 2+ (Negative); Ketones,Urine 3+ (Negative); Leukocyte Esterase,Urine Negative (Negative); Microscopic, Urine URINE MICROSCOPIC (MICROSCOPIC); PH,Urine 5.5 (5.0-8.5); Protein,Urine 1+ (Negative); Specific Gravity, Urine >= 1.030 (1.005-1.030); Urobilinogen,Urine 0.2 EU/dl (0.2)
[2018-12-23 15:14] LABS: Calcium 8.6 mg/dL (8.5-10.1)
[2018-12-23 15:20] LABS: Amphetamine/Metha Screen,Urine Negative ng/mL (<1000); Barbiturates Screen,Urine Negative ng/mL (<200); Benzodiazepines Screen,Urine Negative ng/mL (<200); Cannabinoid Screen,Urine Negative ng/mL (<50); Cocaine Screen,Urine Negative ng/mL (<300); Methadone Screen,Urine Negative ng/mL (<300); Opiate Screen,Urine Negative ng/mL (<300); Phencyclidine Screen,Urine Negative ng/mL (<25)
[2018-12-23 15:28] LABS: Anion Gap 34.4 mEq/L (5-15)
[2018-12-23 15:46] LABS: Bacteria,Urine Trace /lpf; Squamous Epithelial Cell,Urine Occasional #/hpf (0-5); WBC,Urine Occasional #/hpf (0-3)
--- NOTE | 2018-12-23 17:38 | History & Physical Report ---
*Admission Date: 12/23/18 *Chief complaint: DKA, hyperglycemia *History of present illness: Mr. Yan is a 26-year-old type I diabetic who has been on insulin therapy for over 18 years after being diagnosed at the age of 1. He presented to the ER due to worsening abdominal pain, nausea, emesis x2. [place] "really bad" and was concerned he was going into DKA. Initial work-up in the ER showed significant metabolic acidosis, hyperglycemia, anion gap greater than 30. DKA protocol was initiated and he was admitted to medicine for further management. On my interview of patient after getting to the floor, his girlfriend was at bedside with him. He did receive some Phenergan and was sleepy and not in a s sky to give accurate history. Interview with her elicited that he had been doing well until late Tuesday night when his pump reportedly ran out of insulin. This is when he became more acutely ill. She also states that they checked his blood sugar and it was about 389 at home prior to coming to the hospital. When inquiring about his pump, his insulin regimen, and his glucose monitoring regimen, she states that he actually had not checked his blood sugar in many days. She was also under the impression that his pump gave him insulin based on what he ate. I personally interrogated his pump which showed that he had given himself a proximally 15 units prior to coming to the ER. Otherwise he receives approximately 50 units of basal insulin throughout the course of the 24-hour day. In looking back to the daily dose over the past week, there were NO BOLUS DOSES REGISTERED in over a week. Of note Mr. yan has been on pump therapy for approximately 4 years per his report. He sees Luis Daniel Gonzales, and long term at [facility] in [place]. He reports that his last A1c was in the 6 range and that was approximately 1-1/2 to 2 months ago. This is his second DKA in 2 weeks and approximately his sixth over the past year. Patient reported in the ER that he smokes a half a pack a day he drinks little alcohol from time to time and he also smokes marijuana Complained of some chest discomfort; denies diarrhea, fever, urinary symptoms. No cough or URI symptoms. Yesterday he felt "fine". [facility] History I have reviewed the patient's past medical history: Yes Medical History: Reports:: Diabetes Mellitus Type 1 Denies:: Cancer, Diabetes Mellitus Type 2, Internal Pacemaker, MRSA *Have you ever received a pneumonia vaccine?: No *Have you received a flu vaccine this season?: Yes Laterality Cases: Bilateral: Tonsillectomy Other Surgeries: Yes: No Previous Surgery, Other. No: Pacemaker Amputation: No Fractures: Yes (right ankle) - *Social History Educational Level: Completed High School Smoking Status: Current every day smoker Tobacco Type: cigarettes # Packs/Day (cigarettes): 1 #Yrs smoked (if former smoker): 7 Alcohol Intake: never Alcohol Intake Frequency:: holidays/special occasions only Substance Use Type: marijuana *Occupational Status:: unemployed Housing: house Household Members: family *Travel in the last 8 weeks: None Family Hx:: Diabetes, Heart Attack, Hypertension Review of Systems - Review of Systems Review of systems:: pertinent systems reviewed and negative unless documented below - *Neurologic Denies headache(s) Meds Home Medications Medication Instructions Recorded Confirmed Type insulin lispro (U-100) 100 unit/mL 2.5 unit SQ Q1H ml 12/27/17 12/23/18 History subcutaneous cartridge Allergies Allergy/AdvReac Type Severity Reaction Status Date / Time No Known Allergies Allergy Verified 09/12/18 02:07 Exam Vital signs and Labs for Last 24 Hours: Temp Pulse Resp BP Pulse Ox 98.4 F 128 H 22 133/101 H 100 12/23/18 13:52 12/23/18 17:00 12/23/18 17:00 12/23/18 17:00 12/23/18 17:00 Laboratory Results - last 24 hr 12/23/18 11:15: VBG pH 6.91 L, VBG pCO2 33.7 L, VBG pO2 35.0, VBG HCO3 6.6 L, VBG Total CO2 7.6 L, VBG O2 Saturation 57.3, VBG Base Excess -26.2 L 12/23/18 11:15: POC Glucose 389 H* 12/23/18 11:20: WBC 32.6 H*, RBC 5.99, Hgb 18.3 H*, Hct 57.4 H, MCV 95.9 H, MCH 30.5, MCHC 31.8, RDW 13.4, Plt Count 440 H, MPV 10.3, Neut % (Auto) 86.0 H, Lymph % (Auto) 8.4 L, [place] % (Auto) 4.5, Eos % (Auto) 0.4, Baso % (Auto) 0.7, Neut # (Auto) 28.1 H, Lymph # (Auto) 2.8, [place] # (Auto) 1.5 H, Eos # (Auto) 0.1, Baso # (Auto) 0.2, Total Counted 100, Neutrophils % (Manual) 86 H, Lymphocytes % (Manual) 9 L, Monocytes % (Manual) 4, Eosinophils % (Manual) 1, Platelet Estimate Slight increase, RBC Morphology Normal 12/23/18 11:20: Sodium 130 L, Potassium 5.9 H, Chloride 95 L, Carbon Dioxide 8 L*, Anion Gap 32.9 H, BUN 21 H, Creatinine 1.50 H, Estimated Creat Clear 68, Estimated GFR 60, Est GFR ( Amer) 72, Glucose 405 H*, Calcium 9.5, Phosphorus 6.6 H, Magnesium 2.6 H, Total Bilirubin 0.7, AST 18, ALT 15, Alkaline Phosphatase 172 H, Total Protein 9.7 H D, Albumin 5.0, Globulin 4.7 H, Albumin/Globulin Ratio 1.1, Plasma/Serum Alcohol 0, Acetone Level Moderate 12/23/18 11:20: Lactate 2.2 H 12/23/18 11:20: Lipase 87 12/23/18 11:20: Hemoglobin A1c 9.5 H 12/23/18 13:12: POC Glucose 386 H* 12/23/18 14:15: POC Glucose 419 H* 12/23/18 14:43: Sodium 129 L, Potassium 6.4 H*, Chloride 97 L, Carbon Dioxide 4 L* D, Anion Gap 34.4 H, BUN 21 H, Creatinine 1.22, Estimated Creat Clear 84, Estimated GFR 76, Est GFR ( Amer) 92 D, Glucose 415 H*, Calcium 8.6 12/23/18 15:00: Urine Color Yellow, Urine Appearance Clear, Urine pH 5.5, Ur Specific [place] >= 1.030, Urine Protein 1+, Urine Glucose (UA) 2+, Urine Ketones 3+, Urine Blood Trace-i, Urine Nitrate Negative, Urine Bilirubin Negative, Urine Urobilinogen 0.2, Ur Leukocyte Esterase Negative, Urine RBC 3-5, Urine WBC Occasional, Ur Squamous Epith Cells Occasional, Urine Bacteria Trace 12/23/18 15:00: Urine Opiates Screen Negative, Urine Methadone Screen Negative, Ur Barbituates Screen Negative, Ur Phencyclidine Scrn Negative, Ur Amphetamines Screen Negative, U Benzodiazepines Scrn Negative, Urine Cocaine Screen Negative, U Marijuana (THC) Screen Negative 12/23/18 15:06: POC Glucose 393 H* 12/23/18 16:03: POC Glucose 299 H I & O for Last 24 hours: Intake & Output 12/20/18 12/21/18 12/22/18 12/23/18 23:59 23:59 23:59 23:59 Weight 61.2 kg - Constitutional moderate distress, thin, somnolent - *Routine HEENT Exam Head: Present: normocephalic Eye: Present: EOMI, PERRL ENT: Present: mucous membranes moist - *Routine Neck Exam Present: supple. Absent: lymphadenopathy - *Routine Respiratory Exam Present: accessory muscle use, CTA bilaterally Comments: [place] respirations - *Routine Cardiovascular Exam Present: Normal S1, Normal S2, tachycardia. Absent: murmur - *Routine Abdominal Exam Present: soft, normoactive bowel sounds, tenderness (Diffuse nonfocal) - *Routine Extremities Exam Absent: cyanosis, clubbing, edema - *Routine Skin Exam Present: warm. Absent: rash - *Routine Neurological Exam Somnolent but does respond to verbal stimuli. Able to follow commands intermittently. Assessment and Plan (1) High anion gap metabolic acidosis Current visit: Yes Status: Acute Category: Medical Code(s): E87.2 - Acidosis (2) LLUVIA (acute kidney injury) Current visit: Yes Status: Acute Category: Medical Code(s): N17.9 - Acute kidney failure, unspecified (3) Hyponatremia Current visit: Yes Status: Acute Category: Medical Code(s): E87.1 - Hypo- osmolality and hyponatremia (4) Hyperkalemia Current visit: Yes Status: Acute Category: Medical Code(s): E87.5 - Hyperkalemia (5) Diabetic ketoacidosis associated with type 1 diabetes mellitus Current visit: No Status: Acute Category: Medical Code(s): E10.10 - Type 1 diabetes mellitus with ketoacidosis without coma (6) Leukocytosis Current visit: No Status: Acute Category: Medical Code(s): D72.829 - Elevated white blood cell count, unspecified (7) Non-compliance with treatment Current visit: No Status: Acute Category: Medical Code(s): Z91.19 - Patient's noncompliance with other medical treatment and regimen (8) Tobacco use Current visit: No Status: Acute Category: Medical Code(s): Z72.0 - Tobacco use - Assessment and plan all Dx Assessment and Plan for all problems:: 18-year-old type I diabetic in DKA with high anion gap metabolic acidosis. Meeting Sirs criteria however no clear source of infection so antibiotics not initiated at this time. Initiated on DKA protocol. Pump interrogated which see ms to show that he receives basal insulin but no bolus dosing which may account for why he had such rapid recurrence of DKA (less than 2 weeks for 2 episodes). Serial BMPs with titration of fluids and insulin accordingly per protocol. Hypokalemia initially related to transcellular shifts from acid-base disturbance. Monitor for improvement morning. LLUVIA secondary to dehydration, will monitor for improvement in the morning. Hyponatremia suspected to be pseudohyponatremia due to elevated blood sugar, will monitor for improvement with labs. Monitoring on telemetry due to complaint of chest discomfort along with electrolyte disturbances and acid-base disturbance. Will transition to regular diet when patient more alert and gap closed. Would recommend transitioning to his home pump and observing for 24 hours on home pump use with further assistance on bolus doses to make sure pump being used appropriately to decrease risk for readmission with recurrent DKA. Continues to require inpati ent management. Patient condition serious, prognosis fair. Full code.
[2018-12-23 17:39] LABS: Anion Gap 26.7 mEq/L (5-15); Calcium 8.2 mg/dL (8.5-10.1)
[2018-12-23 21:59] LABS: Anion Gap 16.6 mEq/L (5-15); Calcium 8.2 mg/dL (8.5-10.1)
[2018-12-24 02:23] LABS: Basophils # 0.1 K/mm3 (0-0.2); Basophils % 0.3 % (0.1-2.0); Eosinophils # 0.2 K/mm3 (0.0-0.4); Eosinophils % 0.7 % (0.1-12.0); Hematocrit 43.4 % (42.0-52.0); Lymphocytes # 1.8 K/mm3 (0.7-4.5); Mean Corpuscular HGB Conc 33.7 g/dL (31.8-35.4); Mean Corpuscular Volume 89.6 fl (80-94); Mean Platelet Volume 9.4 fl (7.4-10.4); Monocytes # 2.7 K/mm3 (0.1-1.0); Monocytes % 10.6 % (1.7-9.3); Neutrophils # 20.6 K/mm3 (1.8-7.8); Neutrophils % 81.4 % (37.0-80.0); Platelet Count 283 K/mm3 (142-424); Red Blood Count 4.85 M/mm3 (4.60-6.20); Red Cell Distribution Width 13.9 % (11.5-17.5)
[2018-12-24 02:25] LABS: Anion Gap 14.6 mEq/L (5-15); Calcium 8.4 mg/dL (8.5-10.1)
[2018-12-24 02:37] LABS: White Blood Count 25.3 K/mm3 (4.5-13.0)
[2018-12-24 02:38] LABS: Lymphocytes % 11 % (10-50); Monocytes % 1 % (2-9); Neutrophils % 80 % (42-76); RBC Morphology Normal; Total Cells Counted 100
[2018-12-24 02:39] LABS: Hemoglobin 14.7 g/dL (14.1-18.0)
[2018-12-24 06:37] LABS: Anion Gap 13.8 mEq/L (5-15); Calcium 8.6 mg/dL (8.5-10.1)
--- NOTE | 2018-12-24 08:52 | Discharge Summary ---
General - General Admission date:: 12/23/18 Discharge date: 12/24/18 HPI HPI: Mr. Ramires is a 26-year-old type I diabetic who has been on insulin therapy for over 18 years after being diagnosed at the age of 1. He presented to the ER due to worsening abdominal pain, nausea, emesis x2. Logan "really bad" and was concerned he was going into DKA. Initial work-up in the ER showed significant metabolic acidosis, hyperglycemia, anion gap greater than 30. DKA protocol was initiated and he was admitted to medicine for further management. On my interview of patient after getting to the floor, his girlfriend was at bedside with him. He did receive some Phenergan and was sleepy and not in a state to give accurate history. Interview with her elicited that he had been doing well until late Tuesday night when his pump reportedly ran out of insulin. This is when he became more acutely ill. She also states that they checked his blood sugar and it was about 389 at home prior to coming to the hospital. When inquiring about his pump, his insulin regimen, and his glucose monitoring regimen, she states that he actually had not checked his blood sugar in many days. She was also under the impression that his pump gave him insulin based on what he ate. I personally interrogated his pump which showed that he had given himself a proximally 15 units prior to coming to the ER. Otherwise he receives approximately 50 units of basal insulin throughout the course of the 24-hour day. In looking back to the daily dose over the past week, there were NO BOLUS DOSES REGISTERED in over a week. Of note Mr. ramires has been on pump therapy for approximately 4 years per his report. He sees Luis Daniel Gonzales, and sueding machine operator at [facility] in [place]. He reports that his last A1c was in the 6 range and that was approximately 1-1/2 to 2 months ago. This is his second DKA in 2 weeks and approximately his sixth over the past year. Patient reported in the ER that he smokes a half a pack a day he drinks little alcohol from time to time and he also smokes marijuana Complained of some chest discomfort; denies diarrhea, fever, urinary symptoms. No cough or URI symptoms. Yesterday he felt "fine". Hospital Course Hospital Course: pt has did better and requests to leave as he feels better - i discussed checking glu and giving bolus as per his insulin pump as he has not been compliant with diet and insulin - he will call office in am for close follow up and we will contact his endo in [place] Objective Vital signs: Temp Pulse Resp BP Pulse Ox 98.8 F 100 H 20 144/91 H 100 12/24/18 04:00 12/24/18 07:00 12/24/18 07:00 12/24/18 07:00 12/24/18 07:00 no acute distress - *Routine HEENT Exam Head: Present: normocephalic Eye: Present: EOMI, PERRL ENT: Absent: mucous membranes dry - *Routine Neck Exam Present: supple - *Routine Respiratory Exam Present: CTA bilaterally - *Routine Cardiovascular Exam Present: RRR, murmur - *Routine Abdominal Exam Present: soft - *Routine Extremities Exam Present: full ROM. Absent: calf tenderness - *Routine Skin Exam Present: intact - *Routine Neurological Exam Present: alert, oriented X3, CN II-XII intact - Routine Psychiatric Exam Present: normal affect Results Labs on day of discharge: Labs from last 24 hours 12/24/18 12/24/18 12/24/18 08:20 06:57 06:18 WBC RBC Hgb Hct MCV MCH MCHC RDW Plt Count MPV Neut % (Auto) Lymph % (Auto) [place] % (Auto) Eos % (Auto) Baso % (Auto) Neut # (Auto) Lymph # (Auto) [place] # (Auto) Eos # (Auto) Baso # (Auto) Total Counted Neutrophils % (Manual) Band Neutrophils % Lymphocytes % (Manual) Monocytes % (Manual) Eosinophils % (Manual) Platelet Estimate RBC Morphology VBG pH VBG pCO2 VBG pO2 VBG HCO3 VBG Total CO2 VBG O2 Saturation VBG Base Excess Sodium Potassium Chloride Carbon Dioxide Anion Gap BUN Creatinine Estimated Creat Clear Estimated GFR Est GFR ( Amer) Glucose POC Glucose 273 H 137 H 71 Hemoglobin A1c Lactate Calcium Phosphorus Magnesium Total Bilirubin AST ALT Alkaline Phosphatase Total Protein Albumin Globulin Albumin/Globulin Ratio Lipase Urine Color Urine Appearance Urine pH Ur Specific [place] Urine Protein Urine Glucose (UA) Urine Ketones Urine Blood Urine Nitrate Urine Bilirubin Urine Urobilinogen Ur Leukocyte Esterase Urine RBC Urine WBC Ur Squamous Epith Cells Urine Bacteria Urine Opiates Screen Urine Methadone Screen Ur Barbituates Screen Ur Phencyclidine Scrn Ur Amphetamines Screen U Benzodiazepines Scrn Urine Cocaine Screen U Marijuana (THC) Screen Plasma/Serum Alcohol Acetone Level 12/24/18 12/24/18 12/24/18 06:10 05:55 04:56 WBC RBC Hgb Hct MCV MCH MCHC RDW Plt Count MPV Neut % (Auto) Lymph % (Auto) [place] % (Auto) Eos % (Auto) Baso % (Auto) Neut # (Auto) Lymph # (Auto) [place] # (Auto) Eos # (Auto) Baso # (Auto) Total Counted Neutrophils % (Manual) Band Neutrophils % Lymphocytes % (Manual) Monocytes % (Manual) Eosinophils % (Manual) Platelet Estimate RBC Morphology VBG pH VBG pCO2 VBG pO2 VBG HCO3 VBG Total CO2 VBG O2 Saturation VBG Base Excess Sodium 137 Potassium 3.8 Chloride 109 H Carbon Dioxide 18 L Anion Gap 13.8 BUN 8 Creatinine 0.93 Estimated Creat Clear 111 Estimated GFR 104 Est GFR ( Amer) 125 Glucose 78 D POC Glucose 59 L 93 Hemoglobin A1c Lactate Calcium 8.6 Phosphorus Magnesium Total Bilirubin AST ALT Alkaline Phosphatase Total Protein Albumin Globulin Albumin/Globulin Ratio Lipase Urine Color Urine Appearance Urine pH Ur Specific [place] Urine Protein Urine Glucose (UA) Urine Ketones Urine Blood Urine Nitrate Urine Bilirubin Urine Urobilinogen Ur Leukocyte Esterase Urine RBC Urine WBC Ur Squamous Epith Cells Urine Bacteria Urine Opiates Screen Urine Methadone Screen Ur Barbituates Screen Ur Phencyclidine Scrn Ur Amphetamines Screen U Benzodiazepines Scrn Urine Cocaine Screen U Marijuana (THC) Screen Plasma/Serum Alcohol Acetone Level 12/24/18 12/24/18 12/24/18 03:55 03:02 02:14 WBC RBC Hgb Hct MCV MCH MCHC RDW Plt Count MPV Neut % (Auto) Lymph % (Auto) [place] % (Auto) Eos % (Auto) Baso % (Auto) Neut # (Auto) Lymph # (Auto) [place] # (Auto) Eos # (Auto) Baso # (Auto) Total Counted Neutrophils % (Manual) Band Neutrophils % Lymphocytes % (Manual) Monocytes % (Manual) Eosinophils % (Manual) Platelet Estimate RBC Morphology VBG pH VBG pCO2 VBG pO2 VBG HCO3 VBG Total CO2 VBG O2 Saturation VBG Base Excess Sodium Potassium Chloride Carbon Dioxide Anion Gap BUN Creatinine Estimated Creat Clear Estimated GFR Est GFR ( Amer) Glucose POC Glucose 154 H 144 H 119 H Hemoglobin A1c Lactate Calcium Phosphorus Magnesium Total Bilirubin AST ALT Alkaline Phosphatase Total Protein Albumin Globulin Albumin/Globulin Ratio Lipase Urine Color Urine Appearance Urine pH Ur Specific [place] Urine Protein Urine Glucose (UA) Urine Ketones Urine Blood Urine Nitrate Urine Bilirubin Urine Urobilinogen Ur Leukocyte Esterase Urine RBC Urine WBC Ur Squamous Epith Cells Urine Bacteria Urine Opiates Screen Urine Methadone Screen Ur Barbituates Screen Ur Phencyclidine Scrn Ur Amphetamines Screen U Benzodiazepines Scrn Urine Cocaine Screen U Marijuana (THC) Screen Plasma/Serum Alcohol Acetone Level 12/24/18 12/24/18 12/24/18 02:10 02:10 00:59 WBC 25.3 H* RBC 4.85 Hgb 14.7 D Hct 43.4 MCV 89.6 MCH 30.2 MCHC 33.7 RDW 13.9 Plt Count 283 D MPV 9.4 Neut % (Auto) 81.4 H Lymph % (Auto) 7.0 L [place] % (Auto) 10.6 H Eos % (Auto) 0.7 Baso % (Auto) 0.3 Neut # (Auto) 20.6 H Lymph # (Auto) 1.8 [place] # (Auto) 2.7 H Eos # (Auto) 0.2 Baso # (Auto) 0.1 Total Counted 100 Neutrophils % (Manual) 80 H Band Neutrophils % 8.0 Lymphocytes % (Manual) 11 Monocytes % (Manual) 1 L Eosinophils % (Manual) Platelet Estimate Normal RBC Morphology Normal VBG pH VBG pCO2 VBG pO2 VBG HCO3 VBG Total CO2 VBG O2 Saturation VBG Base Excess Sodium 135 L Potassium 4.6 D Chloride 107 Carbon Dioxide 18 L D Anion Gap 14.6 BUN 9 Creatinine 1.04 Estimated Creat Clear 98 Estimated GFR 91 Est GFR ( Amer) 110 Glucose 133 H POC Glucose 81 Hemoglobin A1c Lactate Calcium 8.4 L Phosphorus Magnesium Total Bilirubin AST ALT Alkaline Phosphatase Total Protein Albumin Globulin Albumin/Globulin Ratio Lipase Urine Color Urine Appearance Urine pH Ur Specific [place] Urine Protein Urine Glucose (UA) Urine Ketones Urine Blood Urine Nitrate Urine Bilirubin Urine Urobilinogen Ur Leukocyte Esterase Urine RBC Urine WBC Ur Squamous Epith Cells Urine Bacteria Urine Opiates Screen Urine Methadone Screen Ur Barbituates Screen Ur Phencyclidine Scrn Ur Amphetamines Screen U Benzodiazepines Scrn Urine Cocaine Screen U Marijuana (THC) Screen Plasma/Serum Alcohol Acetone Level 12/24/18 12/23/18 12/23/18 00:30 23:55 23:02 WBC RBC Hgb Hct MCV MCH MCHC RDW Plt Count MPV Neut % (Auto) Lymph % (Auto) [place] % (Auto) Eos % (Auto) Baso % (Auto) Neut # (Auto) Lymph # (Auto) [place] # (Auto) Eos # (Auto) Baso # (Auto) Total Counted Neutrophils % (Manual) Band Neutrophils % Lymphocytes % (Manual) Monocytes % (Manual) Eosinophils % (Manual) Platelet Estimate RBC Morphology VBG pH VBG pCO2 VBG pO2 VBG HCO3 VBG Total CO2 VBG O2 Saturation VBG Base Excess Sodium Potassium Chloride Carbon Dioxide Anion Gap BUN Creatinine Estimated Creat Clear Estimated GFR Est GFR ( Amer) Glucose POC Glucose 82 88 96 Hemoglobin A1c Lactate Calcium Phosphorus Magnesium Total Bilirubin AST ALT Alkaline Phosphatase Total Protein Albumin Globulin Albumin/Globulin Ratio Lipase Urine Color Urine Appearance Urine pH Ur Specific [place] Urine Protein Urine Glucose (UA) Urine Ketones Urine Blood Urine Nitrate Urine Bilirubin Urine Urobilinogen Ur Leukocyte Esterase Urine RBC Urine WBC Ur Squamous Epith Cells Urine Bacteria Urine Opiates Screen Urine Methadone Screen Ur Barbituates Screen Ur Phencyclidine Scrn Ur Amphetamines Screen U Benzodiazepines Scrn Urine Cocaine Screen U Marijuana (THC) Screen Plasma/Serum Alcohol Acetone Level 12/23/18 12/23/18 12/23/18 21:44 20:57 19:55 WBC RBC Hgb Hct MCV MCH MCHC RDW Plt Count MPV Neut % (Auto) Lymph % (Auto) [place] % (Auto) Eos % (Auto) Baso % (Auto) Neut # (Auto) Lymph # (Auto) [place] # (Auto) Eos # (Auto) Baso # (Auto) Total Counted Neutrophils % (Manual) Band Neutrophils % Lymphocytes % (Manual) Monocytes % (Manual) Eosinophils % (Manual) Platelet Estimate RBC Morphology VBG pH VBG pCO2 VBG pO2 VBG HCO3 VBG Total CO2 VBG O2 Saturation VBG Base Excess Sodium 133 L Potassium 3.6 D Chloride 106 Carbon Dioxide 14 L D Anion Gap 16.6 H BUN 12 D Creatinine 1.11 D Estimated Creat Clear 92 Estimated GFR 84 Est GFR ( Amer) 102 D Glucose 145 H D POC Glucose 166 H 175 H Hemoglobin A1c Lactate Calcium 8.2 L Phosphorus Magnesium Total Bilirubin AST ALT Alkaline Phosphatase Total Protein Albumin Globulin Albumin/Globulin Ratio Lipase Urine Color Urine Appearance Urine pH Ur Specific [place] Urine Protein Urine Glucose (UA) Urine Ketones Urine Blood Urine Nitrate Urine Bilirubin Urine Urobilinogen Ur Leukocyte Esterase Urine RBC Urine WBC Ur Squamous Epith Cells Urine Bacteria Urine Opiates Screen Urine Methadone Screen Ur Barbituates Screen Ur Phencyclidine Scrn Ur Amphetamines Screen U Benzodiazepines Scrn Urine Cocaine Screen U Marijuana (THC) Screen Plasma/Serum Alcohol Acetone Level 12/23/18 12/23/18 12/23/18 18:54 18:00 17:30 WBC RBC Hgb Hct MCV MCH MCHC RDW Plt Count MPV Neut % (Auto) Lymph % (Auto) [place] % (Auto) Eos % (Auto) Baso % (Auto) Neut # (Auto) Lymph # (Auto) [place] # (Auto) Eos # (Auto) Baso # (Auto) Total Counted Neutrophils % (Manual) Band Neutrophils % Lymphocytes % (Manual) Monocytes % (Manual) Eosinophils % (Manual) Platelet Estimate RBC Morphology VBG pH VBG pCO2 VBG pO2 VBG HCO3 VBG Total CO2 VBG O2 Saturation VBG Base Excess Sodium Potassium Chloride Carbon Dioxide Anion Gap BUN Creatinine Estimated Creat Clear Estimated GFR Est GFR ( Amer) Glucose POC Glucose 206 H 189 H 212 H Hemoglobin A1c Lactate Calcium Phosphorus Magnesium Total Bilirubin AST ALT Alkaline Phosphatase Total Protein Albumin Globulin Albumin/Globulin Ratio Lipase Urine Color Urine Appearance Urine pH Ur Specific [place] Urine Protein Urine Glucose (UA) Urine Ketones Urine Blood Urine Nitrate Urine Bilirubin Urine Urobilinogen Ur Leukocyte Esterase Urine RBC Urine WBC Ur Squamous Epith Cells Urine Bacteria Urine Opiates Screen Urine Methadone Screen Ur Barbituates Screen Ur Phencyclidine Scrn Ur Amphetamines Screen U Benzodiazepines Scrn Urine Cocaine Screen U Marijuana (THC) Screen Plasma/Serum Alcohol Acetone Level 12/23/18 12/23/18 12/23/18 17:00 17:00 16:54 WBC RBC Hgb Hct MCV MCH MCHC RDW Plt Count MPV Neut % (Auto) Lymph % (Auto) [place] % (Auto) Eos % (Auto) Baso % (Auto) Neut # (Auto) Lymph # (Auto) [place] # (Auto) Eos # (Auto) Baso # (Auto) Total Counted Neutrophils % (Manual) Band Neutrophils % Lymphocytes % (Manual) Monocytes % (Manual) Eosinophils % (Manual) Platelet Estimate RBC Morphology VBG pH VBG pCO2 VBG pO2 VBG HCO3 VBG Total CO2 VBG O2 Saturation VBG Base Excess Sodium 135 L Potassium 4.7 D Chloride 103 Carbon Dioxide 10 L D Anion Gap 26.7 H BUN 20 H Creatinine 1.40 H Estimated Creat Clear 73 Estimated GFR 65 Est GFR ( Amer) 78 Glucose 231 H D POC Glucose 231 H Hemoglobin A1c Lactate 1.9 Calcium 8.2 L Phosphorus Magnesium Total Bilirubin AST ALT Alkaline Phosphatase Total Protein Albumin Globulin Albumin/Globulin Ratio Lipase Urine Color Urine Appearance Urine pH Ur Specific [place] Urine Protein Urine Glucose (UA) Urine Ketones Urine Blood Urine Nitrate Urine Bilirubin Urine Urobilinogen Ur Leukocyte Esterase Urine RBC Urine WBC Ur Squamous Epith Cells Urine Bacteria Urine Opiates Screen Urine Methadone Screen Ur Barbituates Screen Ur Phencyclidine Scrn Ur Amphetamines Screen U Benzodiazepines Scrn Urine Cocaine Screen U Marijuana (THC) Screen Plasma/Serum Alcohol Acetone Level 12/23/18 12/23/18 12/23/18 16:03 15:06 15:00 WBC RBC Hgb Hct MCV MCH MCHC RDW Plt Count MPV Neut % (Auto) Lymph % (Auto) [place] % (Auto) Eos % (Auto) Baso % (Auto) Neut # (Auto) Lymph # (Auto) [place] # (Auto) Eos # (Auto) Baso # (Auto) Total Counted Neutrophils % (Manual) Band Neutrophils % Lymphocytes % (Manual) Monocytes % (Manual) Eosinophils % (Manual) Platelet Estimate RBC Morphology VBG pH VBG pCO2 VBG pO2 VBG HCO3 VBG Total CO2 VBG O2 Saturation VBG Base Excess Sodium Potassium Chloride Carbon Dioxide Anion Gap BUN Creatinine Estimated Creat Clear Estimated GFR Est GFR ( Amer) Glucose POC Glucose 299 H 393 H* Hemoglobin A1c Lactate Calcium Phosphorus Magnesium Total Bilirubin AST ALT Alkaline Phosphatase Total Protein Albumin Globulin Albumin/Globulin Ratio Lipase Urine Color Urine Appearance Urine pH Ur Specific [place] Urine Protein Urine Glucose (UA) Urine Ketones Urine Blood Urine Nitrate Urine Bilirubin Urine Urobilinogen Ur Leukocyte Esterase Urine RBC Urine WBC Ur Squamous Epith Cells Urine Bacteria Urine Opiates Screen Negative Urine Methadone Screen Negative Ur Barbituates Screen Negative Ur Phencyclidine Scrn Negative Ur Amphetamines Screen Negative U Benzodiazepines Scrn Negative Urine Cocaine Screen Negative U Marijuana (THC) Screen Negative Plasma/Serum Alcohol Acetone Level 12/23/18 12/23/18 12/23/18 15:00 14:43 14:15 WBC RBC Hgb Hct MCV MCH MCHC RDW Plt Count MPV Neut % (Auto) Lymph % (Auto) [place] % (Auto) Eos % (Auto) Baso % (Auto) Neut # (Auto) Lymph # (Auto) [place] # (Auto) Eos # (Auto) Baso # (Auto) Total Counted Neutrophils % (Manual) Band Neutrophils % Lymphocytes % (Manual) Monocytes % (Manual) Eosinophils % (Manual) Platelet Estimate RBC Morphology VBG pH VBG pCO2 VBG pO2 VBG HCO3 VBG Total CO2 VBG O2 Saturation VBG Base Excess Sodium 129 L Potassium 6.4 H* Chloride 97 L Carbon Dioxide 4 L* D Anion Gap 34.4 H BUN 21 H Creatinine 1.22 Estimated Creat Clear 84 Estimated GFR 76 Est GFR ( Amer) 92 D Glucose 415 H* POC Glucose 419 H* Hemoglobin A1c Lactate Calcium 8.6 Phosphorus Magnesium Total Bilirubin AST ALT Alkaline Phosphatase Total Protein Albumin Globulin Albumin/Globulin Ratio Lipase Urine Color Yellow Urine Appearance Clear Urine pH 5.5 Ur Specific [place] >= 1.030 Urine Protein 1+ Urine Glucose (UA) 2+ Urine Ketones 3+ Urine Blood Trace-i Urine Nitrate Negative Urine Bilirubin Negative Urine Urobilinogen 0.2 Ur Leukocyte Esterase Negative Urine RBC 3-5 Urine WBC Occasional Ur Squamous Epith Cells Occasional Urine Bacteria Trace Urine Opiates Screen Urine Methadone Screen Ur Barbituates Screen Ur Phencyclidine Scrn Ur Amphetamines Screen U Benzodiazepines Scrn Urine Cocaine Screen U Marijuana (THC) Screen Plasma/Serum Alcohol Acetone Level 12/23/18 12/23/18 12/23/18 13:12 11:20 11:20 WBC RBC Hgb Hct MCV MCH MCHC RDW Plt Count MPV Neut % (Auto) Lymph % (Auto) [place] % (Auto) Eos % (Auto) Baso % (Auto) Neut # (Auto) Lymph # (Auto) [place] # (Auto) Eos # (Auto) Baso # (Auto) Total Counted Neutrophils % (Manual) Band Neutrophils % Lymphocytes % (Manual) Monocytes % (Manual) Eosinophils % (Manual) Platelet Estimate RBC Morphology VBG pH VBG pCO2 VBG pO2 VBG HCO3 VBG Total CO2 VBG O2 Saturation VBG Base Excess Sodium Potassium Chloride Carbon Dioxide Anion Gap BUN Creatinine Estimated Creat Clear Estimated GFR Est GFR ( Amer) Glucose POC Glucose 386 H* Hemoglobin A1c 9.5 H Lactate Calcium Phosphorus Magnesium Total Bilirubin AST ALT Alkaline Phosphatase Total Protein Albumin Globulin Albumin/Globulin Ratio Lipase 87 Urine Color Urine Appearance Urine pH Ur Specific [place] Urine Protein Urine Glucose (UA) Urine Ketones Urine Blood Urine Nitrate Urine Bilirubin Urine Urobilinogen Ur Leukocyte Esterase Urine RBC Urine WBC Ur Squamous Epith Cells Urine Bacteria Urine Opiates Screen Urine Methadone Screen Ur Barbituates Screen Ur Phencyclidine Scrn Ur Amphetamines Screen U Benzodiazepines Scrn Urine Cocaine Screen U Marijuana (THC) Screen Plasma/Serum Alcohol Acetone Level 12/23/18 12/23/18 12/23/18 11:20 11:20 11:20 WBC 32.6 H* RBC 5.99 Hgb 18.3 H* Hct 57.4 H MCV 95.9 H MCH 30.5 MCHC 31.8 RDW 13.4 Plt Count 440 H MPV 10.3 Neut % (Auto) 86.0 H Lymph % (Auto) 8.4 L [place] % (Auto) 4.5 Eos % (Auto) 0.4 Baso % (Auto) 0.7 Neut # (Auto) 28.1 H Lymph # (Auto) 2.8 [place] # (Auto) 1.5 H Eos # (Auto) 0.1 Baso # (Auto) 0.2 Total Counted 100 Neutrophils % (Manual) 86 H Band Neutrophils % Lymphocytes % (Manual) 9 L Monocytes % (Manual) 4 Eosinophils % (Manual) 1 Platelet Estimate Slight increase RBC Morphology Normal VBG pH VBG pCO2 VBG pO2 VBG HCO3 VBG Total CO2 VBG O2 Saturation VBG Base Excess Sodium 130 L Potassium 5.9 H Chloride 95 L Carbon Dioxide 8 L* Anion Gap 32.9 H BUN 21 H Creatinine 1.50 H Estimated Creat Clear 68 Estimated GFR 60 Est GFR ( Amer) 72 Glucose 405 H* POC Glucose Hemoglobin A1c Lactate 2.2 H Calcium 9.5 Phosphorus 6.6 H Magnesium 2.6 H Total Bilirubin 0.7 AST 18 ALT 15 Alkaline Phosphatase 172 H Total Protein 9.7 H D Albumin 5.0 Globulin 4.7 H Albumin/Globulin Ratio 1.1 Lipase Urine Color Urine Appearance Urine pH Ur Specific [place] Urine Protein Urine Glucose (UA) Urine Ketones Urine Blood Urine Nitrate Urine Bilirubin Urine Urobilinogen Ur Leukocyte Esterase Urine RBC Urine WBC Ur Squamous Epith Cells Urine Bacteria Urine Opiates Screen Urine Methadone Screen Ur Barbituates Screen Ur Phencyclidine Scrn Ur Amphetamines Screen U Benzodiazepines Scrn Urine Cocaine Screen U Marijuana (THC) Screen Plasma/Serum Alcohol 0 Acetone Level Moderate 12/23/18 12/23/18 11:15 11:15 WBC RBC Hgb Hct MCV MCH MCHC RDW Plt Count MPV Neut % (Auto) Lymph % (Auto) [place] % (Auto) Eos % (Auto) Baso % (Auto) Neut # (Auto) Lymph # (Auto) [place] # (Auto) Eos # (Auto) Baso # (Auto) Total Counted Neutrophils % (Manual) Band Neutrophils % Lymphocytes % (Manual) Monocytes % (Manual) Eosinophils % (Manual) Platelet Estimate RBC Morphology VBG pH 6.91 L VBG pCO2 33.7 L VBG pO2 35.0 VBG HCO3 6.6 L VBG Total CO2 7.6 L VBG O2 Saturation 57.3 VBG Base Excess -26.2 L Sodium Potassium Chloride Carbon Dioxide Anion Gap BUN Creatinine Estimated Creat Clear Estimated GFR Est GFR ( Amer) Glucose POC Glucose 389 H* Hemoglobin A1c Lactate Calcium Phosphorus Magnesium Total Bilirubin AST ALT Alkaline Phosphatase Total Protein Albumin Globulin Albumin/Globulin Ratio Lipase Urine Color Urine Appearance Urine pH Ur Specific [place] Urine Protein Urine Glucose (UA) Urine Ketones Urine Blood Urine Nitrate Urine Bilirubin Urine Urobilinogen Ur Leukocyte Esterase Urine RBC Urine WBC Ur Squamous Epith Cells Urine Bacteria Urine Opiates Screen Urine Methadone Screen Ur Barbituates Screen Ur Phencyclidine Scrn Ur Amphetamines Screen U Benzodiazepines Scrn Urine Cocaine Screen U Marijuana (THC) Screen Plasma/Serum Alcohol Acetone Level DS: Diagnosis - Discharge Diagnosis (1) High anion gap metabolic acidosis Status: Acute (2) LLUVIA (acute kidney injury) Status: Acute (3) Hyponatremia Status: Acute (4) Hyperkalemia Status: Acute (5) Diabetic ketoacidosis associated with type 1 diabetes mellitus Status: Acute (6) Leukocytosis Status: Acute (7) Non-compliance with treatment Status: Acute (8) Tobacco use Status: Acute Discharge Plan - Patient Discharge Instructions ACTIVITY: Continue current activity DIET: continue same diet Patient Instructions: DI for Diabetic Ketoacidosis - Follow up Plan Disposition: Home, Self-Intermediate Medications: Home Medications Medication Instructions Recorded Confirmed Type insulin lispro (U-100) 100 unit/mL 2.5 unit SQ Q1H ml 12/27/17 12/23/18 History subcutaneous cartridge Prescriptions/Medication Reconciliation: Continued insulin lispro (U-100) 100 unit/mL subcutaneous cartridge 2.5 unit SQ Q1H ml - Problem Reconciliation Problems Reviewed?: Yes
[2018-12-24 10:06] VITALS: BP 118/83
--- NOTE | 2018-12-24 21:05 | Electrocardiograph Report ---
APPROVED REPORT Exam: Resting ECG HR:118 bpm ECG Measurements Heart Rate 118 AXES UT 142 P 76 QRSd 100 QRS 113 QT 320 T1 QTc 448 <Conclusion> Sinus tachycardia Right atrial enlargement Right axis deviation ST & T wave abnormality, consider inferior ischemia Abnormal ECG Electronically signed by : Percy Bain, 12/24/2018 21:04:48
== END 2018-12-24 10:55 | disposition home or self-care (01) ==
LOC: ER 11:09 → 2ND 13:20 → INTOOBSV 13:56
PROVIDERS: ADMIT Internal Medicine Adolescent Medicine; ATTEND Emergency Medicine
CPT/HCPCS: 36415; 71010; 71045; 80048; 80053; 80305; 81001; 82009; 82803; 82962; 83036; 83605; 83690; 83735; 84100; 85007; 85025; 87040; 93005; 96365; 96375; 99284; G0378; J2405